=== PATIENT | female | born 1950 | race Caucasian/White ===

== ENCOUNTER 2016-06-07 10:48 | Observation (INO) | payer MEDICARE ==
[2016-06-07] MEDS ORDERED: NS 0.9% 1000 ML* 1,000 ML IV ONE (12:04)
[2016-06-07] MEDS ORDERED: Aspirin Low Dose CHEW TAB* 81 MG PO ONE (12:06)
[2016-06-07] MEDS ORDERED: Al Hydrox/Mg Hydrox/Simet LIQ* 30 ML UDC PO ONE (12:07)
[2016-06-07] MEDS ORDERED: Lidocaine 2% VISCOUS* 15 ML UDC PO ONE (12:07)
[2016-06-07 12:35] LABS: Hematocrit 42 % (35-47); Hemoglobin 14.2 g/dl (12.0-16.0); Mean Corpuscular HGB Conc 34 g/dl (31-36); Mean Corpuscular Hemoglobin 28 pg (27-31); Mean Corpuscular Volume 84 fL (80-97); Mean Platelet Volume 9 um3 (7.4-10.4); Red Blood Count 5.03 10^6/ul (4.0-5.4); Red Cell Distribution Width 15 % (10.5-15); White Blood Count 5.3 10^3/ul (3.5-10.8)
[2016-06-07 12:52] LABS: Albumin 4.2 g/dL (3.2-5.2); C Reactive Protein 1.39 mg/L (< 5.00); Calcium 9.9 mg/dL (8.6-10.3); EGFR African American 78.8 (>60); EGFR Non-African American 61.3 (>60); Globulin 2.9 g/dL (2-4); Magnesium 2.2 mg/dL (1.9-2.7); Potassium 3.5 mmol/L (3.5-5.0); Total Bilirubin 0.9 mg/dL (0.2-1.0); Total Protein 7.1 g/dL (6.4-8.9)
[2016-06-07] MEDS ORDERED: Iohexol 350* (CONTRAST) 500 ML MDV IV ONE (12:58)
[2016-06-07 13:34] LABS: TSH (Thyroid Stimulating Horm) 1.5 mcIU/mL (0.34-5.60)
--- NOTE | 2016-06-07 13:55 | RAD ---
Indication: Upper abdominal pain. Real-time sonography of the abdominal aorta was performed. Liver is normal in size measuring 13 cm in length. No focal lesions or intrahepatic ductal dilatation is noted. The gallbladder demonstrates no gallstones, pericholecystic fluid or wall thickening. The common duct measures 2.2 mm. Common duct measures 2.1 mm. Right kidney measures 11.4 x 3.9 x 5.4 cm with no hydronephrosis. The pancreatic head, neck and proximal body demonstrates no mass or pancreatic inflammation. Mild fusiform ectasia of the abdominal aorta is noted measuring 3.5 cm in length x 2.3 cm AP x 2.2 cm in width. IVC is unremarkable and patent. IMPRESSION: Fusiform ectasia of the abdominal aorta. No evidence of cholelithiasis or biliary ductal dilatation is noted.
--- NOTE | 2016-06-07 14:30 | RAD ---
INDICATION: Epigastric pain. History of abdominal aortic aneurysm COMPARISON: Abdominal aortic sonogram June 27, 2014 TECHNIQUE: Axial source images were obtained from the thoracic inlet to the symphysis pubis following administration of oral and intravenous contrast. CT angiographic technique was utilized. 100 mL of Omnipaque 350 was injected. Coronal and sagittal reconstructed images were acquired. CHEST FINDINGS: Neck/thyroid: The visualized neck to include the thyroid appear normal. Chest wall: There are no acute abnormalities of the bony thorax or chest wall. There is no supraclavicular, infraclavicular, or axillary lymphadenopathy. Lungs : There are no pulmonary parenchymal masses or infiltrates. The pulmonary interstitium appears normal. There are no endobronchial lesions. Cardiomediastinal structures: The heart is normal in size. There is no pericardial effusion. There is no evidence of thoracic aortic aneurysm or dissection. The pulmonary vessels appear normal. There is no mediastinal or hilar adenopathy. The esophagus appears normal. Pleura : There are no pleural-based masses or effusions. ABDOMINAL/PELVIC FINDINGS: Liver: The liver is normal in size. There are no masses identified on the early arterial phase images. There is no ductal dilatation. Gallbladder: There are no calcified gallstones. There is no evidence of wall thickening or pericholecystic fluid. Spleen: The spleen is normal in size. There are definitive masses identified on the early arterial phase enhanced images. Pancreas: There is no evidence of pancreatic mass or ductal dilatation. Adrenal glands: There is no evidence of adrenal mass. Kidneys: The kidneys are normal in size and position. There are prompt nephrograms and there is prompt excretion bilaterally. There are no renal parenchymal masses identified on early nephrographic phase imaging. There is no evidence of nephrolithiasis. Adenopathy: There is no evidence of adenopathy by size criteria. Fluid collections: There are no free or localized fluid collections. Vessels: There are mild aortic intimal calcifications with mild fusiform dilatation infrarenal abdominal aorta measuring 2.5 cm in greatest transverse dimension, unchanged. The iliac vessels are mildly tortuous and there are intimal calcifications. There is wide patency. There is no aneurysm. There is moderate origin disease of the celiac axis. The SMA and MARCELINO arteries are patent. There is mild origin disease of the renal arteries. There are single renal arteries bilaterally. GI tract: Evaluation of bowel is limited without oral contrast. There is a large hiatal hernia. The small bowel is normal in caliber. There are no specific CT abnormalities of the colon. There is no obstruction. Pelvic organs: The uterus and adnexa appear normal Bladder: There are no bladder masses. Abdominal and pelvic soft tissues: The extraperitoneal abdominal and pelvic soft tissues appear normal.. Osseous structures: There are no acute osseous findings. There is chronic L5 spondylolysis without anterolisthesis IMPRESSION: 1. No aneurysm of the thoracic aorta. Mild fusiform ectasia of the infrarenal abdominal aorta. No evidence of aortic dissection. 2. Large hiatal hernia. 3. Chronic L5 spondylolysis
[2016-06-07] MEDS ORDERED: Nitroglycerin TAB 0.4 MG* 0.4 MG TAB SL PRN (16:15)
[2016-06-07] MEDS ORDERED: Albuterol HFA INHALER* 8 gm MDI INH PRN (16:19)
[2016-06-07] MEDS ORDERED: oxyCODONE/Acetamin 5/325 MG* TAB PO PRN (16:21)
[2016-06-07] MEDS: ALPRAZolam TAB* 0.5 MG PO PRN (16:50)
--- NOTE | 2016-06-07 18:19 | ED ---
Case Luke Billy, scribed for Umang Gold MD on 06/07/16 at 1202 . Back Pain - HPI Summary HPI Summary: Patient is a 66 year-old female coming to [facility] for evaluation of intermittent upper back pain between the shoulder blades for the last several weeks, worse today since 929. She states that her pain is worse with exertion and improved with rest. Today, the pain radiates to her posterior and lateral right ribs as well as to the RUQ; she describes burning pain, severity 4/10. Associated SOB with exertion. She also reports intermittent headache and nausea as well as epigastric pain last night. She also reports chronic neck pain. Patient has a cardiac history as well as a history of LLE blood clot (December 2015, since resolved). PMHx of hiatal hernia and aortic aneurysm. - History of Current Complaint Chief Complaint: EDChestPainROMI Stated Complaint: POSSIBLE GALL BLADDER Time Seen by Provider: 06/07/16 11:54 Hx Obtained From: Patient Onset/Duration: Gradual Onset, Lasting Weeks, Still Present, Worse Since - 929 today Timing: Intermittent Back Pain Location: Is Discrete @ - upper back midline between shoulder blades, Radiates To - posterior and lateral right ribs and RUQ Severity Initially: Moderate Severity Currently: Moderate Pain Intensity: 4 Pain Scale Used: 0-10 Numeric Character: Burning Aggravating Symptom(s): Movement - exertion Alleviating Symptom(s): Rest Associated Signs And Symptoms: Positive: Abdominal Pain - Allergies/Home Medications Allergies/Adverse Reactions: Allergies Allergy/AdvReac Type Severity Reaction Status Date / Time Ezetimibe [From Vytorin] Allergy Intermediate Rash Verified 12/21/15 15:56 Simvastatin [From Vytorin] Allergy Intermediate Rash Verified 12/21/15 15:56 Codeine Allergy GI Upset Verified 12/21/15 15:56 Latex Allergy Rash Verified 12/21/15 15:56 PMH/Surg Hx/FS Hx/Imm Hx Endocrine/Hematology History: Reports: Hx Thyroid Disease - HYPO Cardiovascular History: Reports: Hx Aneurysm, Hx Angina, Hx Coronary Artery Disease - STENT/ANGIOPLASTY 2001, Hx Hypercholesterolemia, Hx Hypertension - ON MEDS, Other Cardiovascular Problems/Disorders - aortic aneurysm Denies: Hx Pacemaker/ICD Respiratory History: Reports: Hx Asthma, Hx Chronic Obstructive Pulmonary Disease (COPD) GI History: Reports: Hx Gastroesophageal Reflux Disease Musculoskeletal History: Reports: Hx Arthritis Sensory History: Reports: Hx Contacts or Glasses Denies: Hx Hearing Aid Opthamlomology History: Reports: Hx Contacts or Glasses Psychiatric History: Reports: Hx Anxiety, Hx Depression Denies: Hx Panic Disorder - Cancer History Hx Chemotherapy: No Hx Radiation Therapy: No - Surgical History Surgery Procedure, Year, and Place: BILATERAL CARPAL TUNNEL RELEASE. ROTOR CUFF REPAIR LEFT. RIGHT KNEE SCOPE. CARDIAC STENTS 2001(MULTI LINK [place]- CONDITIONAL 5 UP TO 3 T//330 G/CM) DR COTTER APPROVED HER FOR SCANNING ON 1.5 ONLY. Hx Anesthesia Reactions: No Infectious Disease History: No Infectious Disease History: Denies: Traveled Outside the [place] in Last 30 Days - Family History Known Family History: Positive: Hypertension - Social History Alcohol Use: Occasionally Substance Use Type: Reports: None Smoking Status (MU): Former Smoker Review of Systems Positive: Shortness Of Breath Positive: Abdominal Pain, Nausea Positive: Other - back pain, rib pain, neck pain Positive: Headache All Other Systems Reviewed And Are Negative: Yes Physical Exam Triage Information Reviewed: Yes Vital Signs On Initial Exam: Initial Vitals Temp Pulse Resp BP Pulse Ox 97.4 F 56 20 153/100 100 06/07/16 11:00 06/07/16 11:00 06/07/16 11:00 06/07/16 11:00 06/07/16 11:00 Vital Signs Reviewed: Yes Appearance: Positive: Well-Appearing, No Pain Distress Skin: Positive: Warm, Skin Color Reflects Adequate Perfusion, Dry Head/Face: Positive: Normal Head/Face Inspection Eyes: Positive: EOMI, GREG ENT: Positive: Normal ENT inspection Neck: Positive: Supple, Nontender Respiratory/Lung Sounds: Positive: Clear to Auscultation, Breath Sounds Present Cardiovascular: Positive: Bradycardia Abdomen Description: Positive: Nontender, Soft Bowel Sounds: Positive: Present Musculoskeletal: Positive: Normal, Strength/ROM Intact. Negative: Edema Left, Edema Right Neurological: Positive: Normal, Sensory/Motor Intact, Alert, Oriented to Person Place, Time Psychiatric: Positive: Affect/Mood Appropriate Diagnostics - Vital Signs Vital Signs Temp Pulse Resp BP Pulse Ox 06/07/16 11:00 97.4 F 56 20 153/100 100 - Laboratory Lab Results: Lab Results 06/07/16 06/07/16 06/07/16 Range/Units 12:25 12:25 12:25 WBC 5.3 (3.5-10.8) 10^3/ul RBC 5.03 (4.0-5.4) 10^6/ul Hgb 14.2 (12.0-16.0) g/dl Hct 42 (35-47) % MCV 84 (80-97) fL MCH 28 (27-31) pg MCHC 34 (31-36) g/dl RDW 15 (10.5-15) % Plt Count 162 (150-450) 10^3/ul MPV 9 (7.4-10.4) um3 Neut % (Auto) 59.6 (38-83) % Lymph % (Auto) 25.9 (25-47) % Reeves % (Auto) 8.8 (1-9) % Eos % (Auto) 4.7 (0-6) % Baso % (Auto) 1.0 (0-2) % Absolute Neuts (auto) 3.2 (1.5-7.7) 10^3/ul Absolute Lymphs (auto) 1.4 (1.0-4.8) 10^3/ul Absolute Monos (auto) 0.5 (0-0.8) 10^3/ul Absolute Eos (auto) 0.2 (0-0.6) 10^3/ul Absolute Basos (auto) 0.1 (0-0.2) 10^3/ul Absolute Nucleated RBC 0 10^3/ul Nucleated RBC % 0.1 INR (Anticoag Therapy) 1.18 H (0.89-1.11) APTT 57.5 H (26.0-36.3) seconds D-Dimer, Quantitative < 200 (Less Than 230) ng/mL Sodium 139 (133-145) mmol/L Potassium 3.5 (3.5-5.0) mmol/L Chloride 103 (101-111) mmol/L Carbon Dioxide 31 (22-32) mmol/L Anion Gap 5 (2-11) mmol/L BUN 11 (6-24) mg/dL Creatinine 0.92 (0.51-0.95) mg/dL Est GFR ( Amer) 78.8 (>60) Est GFR (Non-Af Amer) 61.3 (>60) BUN/Creatinine Ratio 12.0 (8-20) Glucose 94 (70-100) mg/dL Lactic Acid (0.5-2.0) mmol/L Calcium 9.9 (8.6-10.3) mg/dL Magnesium 2.2 (1.9-2.7) mg/dL Total Bilirubin 0.90 (0.2-1.0) mg/dL AST 28 (13-39) U/L ALT 24 (7-52) U/L Alkaline Phosphatase 96 (34-104) U/L Total Creatine Kinase 75 (10-223) U/L CK-MB (CK-2) 1.0 (0.6-6.3) ng/mL Troponin I 0.00 (<0.04) ng/mL C-Reactive Protein 1.39 (< 5.00) mg/L B-Natriuretic Peptide ( - 100) pg/mL Total Protein 7.1 (6.4-8.9) g/dL Albumin 4.2 (3.2-5.2) g/dL Globulin 2.9 (2-4) g/dL Albumin/Globulin Ratio 1.4 (1-3) Lipase 24 (11.0-82.0) U/L TSH 1.50 (0.34-5.60) mcIU/mL 06/07/16 06/07/16 Range/Units 12:25 12:25 WBC (3.5-10.8) 10^3/ul RBC (4.0-5.4) 10^6/ul Hgb (12.0-16.0) g/dl Hct (35-47) % MCV (80-97) fL MCH (27-31) pg MCHC (31-36) g/dl RDW (10.5-15) % Plt Count (150-450) 10^3/ul MPV (7.4-10.4) um3 Neut % (Auto) (38-83) % Lymph % (Auto) (25-47) % Reeves % (Auto) (1-9) % Eos % (Auto) (0-6) % Baso % (Auto) (0-2) % Absolute Neuts (auto) (1.5-7.7) 10^3/ul Absolute Lymphs (auto) (1.0-4.8) 10^3/ul Absolute Monos (auto) (0-0.8) 10^3/ul Absolute Eos (auto) (0-0.6) 10^3/ul Absolute Basos (auto) (0-0.2) 10^3/ul Absolute Nucleated RBC 10^3/ul Nucleated RBC % INR (Anticoag Therapy) (0.89-1.11) APTT (26.0-36.3) seconds D-Dimer, Quantitative (Less Than 230) ng/mL Sodium (133-145) mmol/L Potassium (3.5-5.0) mmol/L Chloride (101-111) mmol/L Carbon Dioxide (22-32) mmol/L Anion Gap (2-11) mmol/L BUN (6-24) mg/dL Creatinine (0.51-0.95) mg/dL Est GFR ( Amer) (>60) Est GFR (Non-Af Amer) (>60) BUN/Creatinine Ratio (8-20) Glucose (70-100) mg/dL Lactic Acid 0.8 (0.5-2.0) mmol/L Calcium (8.6-10.3) mg/dL Magnesium (1.9-2.7) mg/dL Total Bilirubin (0.2-1.0) mg/dL AST (13-39) U/L ALT (7-52) U/L Alkaline Phosphatase (34-104) U/L Total Creatine Kinase (10-223) U/L CK-MB (CK-2) (0.6-6.3) ng/mL Troponin I (<0.04) ng/mL C-Reactive Protein (< 5.00) mg/L B-Natriuretic Peptide 85 ( - 100) pg/mL Total Protein (6.4-8.9) g/dL Albumin (3.2-5.2) g/dL Globulin (2-4) g/dL Albumin/Globulin Ratio (1-3) Lipase (11.0-82.0) U/L TSH (0.34-5.60) mcIU/mL Result Diagrams: 06/07/16 12:25 06/07/16 12:25 Lab Statement: Any lab studies that have been ordered have been reviewed, and results considered in the medical decision making process. - CT CTA chest/abd/pel CT Interpretation Completed By: Radiologist - 1. No aneurysm of the thoracic aorta. Mild fusiform ectasia of the infrarenal abdominal aorta. No evidence of aortic dissection. 2. Large hiatal hernia. 3. Chronic L5 spondylolysis - Ultrasound No standard instances Ultrasound Interpretation Completed By: Radiologist - Gallbladder Ultrasound: Fusiform ectasia of the abdominal aorta. No evidence of cholelithiasis or biliary ductal dilatation is noted. - EKG 1110 EKG Interpretation: sinus bradycardia 57 bpm, no ectopy, TWI in III and aVF Re-Evaluation - Re-Evaluation First Eval Re-Evaluation Time: 14:37 Comment: Labs and imaging reviewed/discussed. Patient agrees with plan for admission. Back Pain Course/Dx - Course Course Of Treatment: NO CRITICAL CARE TIME Assessment/Plan: ADMIT HOSPITALIST STABLE. - Diagnoses Provider Diagnoses: Chest pain, Abdominal pain - Provider Notifications Discussed Care of Patient With: Dr. Petit (hospitalist) @ 1500: accepts admission. Discharge - Discharge Plan Condition: Stable Disposition: ADMITTED TO [facility] documentation as recorded by the Case herman Billy accurately reflects the service I personally performed and the decisions made by me, Umang oGld MD.
[2016-06-07] MEDS ORDERED: Atorvastatin* 10 MG TAB PO SCH (21:00)
[2016-06-07] MEDS ORDERED: Metoprolol Tartrate TAB* 50 mg PO SCH (21:00)
[2016-06-07] MEDS: CMCS - Dabigatran CAP(NF) 150 MG CAP PO SCH (21:38)
--- NOTE | 2016-06-07 22:57 | HP ---
HISTORY AND PHYSICAL: DATE OF ADMISSION: 06/07/16 TIME OF EVALUATION: 4 p.m. PRIMARY CARE PHYSICIAN: Isidoro Wiseman MD REVENUE STAMPER: Yvan Nava MD CHIEF COMPLAINT: Back and epigastric pain. HISTORY OF PRESENT ILLNESS: Mrs. Low is a 66-year-old lady with a past medical history of hypertension; hyperlipidemia; COPD; coronary artery disease, status post stent; osteoarthritis; chronic pain; and AAA who presented to the emergency room with complaints of back pain. The patient states that her symptoms started 2 weeks ago when she started to have pain between her shoulder blades. The pain was 5/10 with no radiation and worsened by movement. She does not remember exactly any specific event that provoked the pain, but she has had it on and off for this past 2 weeks. She took half of Percocet with some relief, but the pain kept coming back. Today, she went to vacuum and the pain became severe, 10/10 intensity, and she called her PCP and as she cannot be seen by them, she decided to come to the emergency room for further evaluation. She says down her drive in, she developed some epigastric pain radiating to her right upper quadrant, burning in nature. She denies chest pain, palpitations, shortness of breath, or any other complaints. PAST MEDICAL HISTORY: 1. Hypertension. 2. Hyperlipidemia. 3. COPD. 4. Coronary artery disease with 70% occlusion of the obtuse marginal from left circumflex, undergoing medical management. She is status post stent in 2001. 5. Osteoarthritis. 6. Chronic pain. 7. AAA. MEDICATIONS: 1. Albuterol HFA 2 puffs inhaled q.6 hours p.r.n. shortness of breath. 2. Alprazolam 0.5 mg p.o. t.i.d. as needed for anxiety. 3. Aspirin 81 mg p.o. daily. 4. Vitamin D 2000 units p.o. daily. 5. Pradaxa 150 mg p.o. b.i.d. 6. Folic acid with vitamin B6 1000 p.o. daily. 7. Hydrochlorothiazide 25 mg p.o. daily. 8. Levothyroxine 75 mcg p.o. daily. 9. Metoprolol tartrate 50 mg p.o. b.i.d. 10. Nitroglycerin 0.4 mg sublingual q.5 minutes p.r.n. chest pain, maximum 3 doses. 11. Omeprazole 20 mg p.o. daily. 12. Potassium chloride 300 mg p.o. daily. 13. SIMVASTATIN 10 mg p.o. at bedtime. ALLERGIES: EZETIMIBE, CODEINE and LATEX. SIMVASTATIN is also listed as an allergy, but the patient is taking it now with no issues. FAMILY HISTORY: Mother had heart disease, diabetes, and Alzheimer's and her father had heart disease and from aneurysm. SOCIAL HISTORY: The patient quit smoking 7 years ago. She drinks alcohol occasionally. Surrogate decision maker is her , Yovany Low. Phone number is [phone]. REVIEW OF SYSTEMS: A 14-point review of systems was performed and all the pertinent negative and positive findings are in the HPI. PHYSICAL EXAMINATION GENERAL: The patient is a pleasant lady, sitting up in the ED stretcher, in no acute distress. VITAL SIGNS: Temperature 97.4, heart rate is 68, respiratory rate is 20, oxygen saturation is 96% on room air, and blood pressure 152/88. HEENT: Pupils are equal and reactive to light. Extraocular movements intact. Moist mucous membranes. CVS: Normal S1, S2. Regular rate and rhythm. CHEST: Breath sounds present bilaterally with no added sounds. ABDOMEN: Obese, soft, nontender, and nondistended. Bowel sounds are present. EXTREMITIES: No edema. NEUROLOGIC: She is alert, awake, and oriented x3. She is able to move all 4 extremities. DIAGNOSTIC STUDIES/LAB DATA: The patient had a CBC that was unremarkable. D- dimer was less than 200. Chemistry was also unremarkable and her troponin was 0. EKG done on June 07 at 11:10 a.m. showed sinus bradycardia at 57 beats per minute with T inversions in lead 3. No significant changes from her prior EKG from November 2015. Gallbladder ultrasound showed fusiform ectasia of the abdominal aorta and no evidence of cholelithiasis or biliary duct dilatation. CTA of the chest, abdomen, and pelvis showed no aneurysm of the thoracic aorta. There is mild fusiform ectasia of the infrarenal abdominal aorta, but no evidence of aortic dissection. The infrarenal abdominal aorta measures 2.5 cm in greatest transverse dimension, unchanged from her prior abdominal aortic sonogram from June 2015. ASSESSMENT AND PLAN: Mrs. Low is a 66-year-old lady with a past medical history of hypertension; hyper-lipidemia; chronic obstructive pulmonary disease ; coronary artery disease, status post stent; osteoarthritis; chronic pain; and abdominal aortic aneurysm, who presents to the emergency room with complaints of back pain and epigastric pain. 1. Back/epigastric pain: Rule out acute coronary syndrome. I believe the etiology of her pain is probably musculoskeletal, but the patient does have a history of coronary artery disease and significant risk factors. She will be admitted to the telemetry floor on observation. We are going to check serial troponins and if acute coronary syndrome is ruled out, she is going to have a nuclear pharmacological stress test. Her D-dimer was negative. Her CTA showed that her aneurysm is stable and an ultrasound was negative for gallbladder disease. 2. Hypertension: We will continue hydrochlorothiazide/metoprolol tonight, but we will hold metoprolol in the morning for her stress test. 3. Coronary artery disease: Continue aspirin and metoprolol for tonight and statin. 4. Atrial fibrillation: The patient is in sinus rhythm at this time. We will continue Pradaxa. 5. DVT prophylaxis: The patient has a score of 3 on the DVT Prophylaxis Risk Assessment Guide and Pradaxa will serve as DVT prophylaxis also. 6. Code status: Full. TIME SPENT: Approximately 50 minutes was spent with the patient interview, medical records review, physical examination to complete the admission, and more than half this time was spent [id number] with the patient and coordination of care. CC: Dr. Wiseman; Dr. Nava* [id number]/[facility] #: [id number] [facility]
[2016-06-08 02:48] LABS: Urine Bacteria Absent (Absent); Urine Bilirubin Negative (Negative); Urine Glucose Negative (Negative); Urine Nitrite Negative (Negative)
[2016-06-08] MEDS ORDERED: Levothyroxine TAB* 75 MCG TAB PO SCH (06:00)
[2016-06-08] MEDS ORDERED: Omeprazole CAP* 20 MG PO SCH (07:30)
[2016-06-08] MEDS: CMCS - Dabigatran CAP(NF) 150 MG CAP PO SCH (08:26)
[2016-06-08] MEDS ORDERED: Aspirin EC Low Dose* 81 MG TAB.EC PO SCH (09:00)
[2016-06-08] MEDS ORDERED: Cholecalciferol TAB* 1000 UNITS PO SCH (09:00)
[2016-06-08] MEDS ORDERED: Hydrochlorothiazide TAB* 25 MG PO SCH (09:00)
[2016-06-08] MEDS ORDERED: Potassium Chlor TAB* 20 MEQ TAB.ER PO SCH (09:00)
[2016-06-08] MEDS ORDERED: Regadenoson* 0.4 MG/5 ML SYRINGE ONE (11:58)
[2016-06-08] MEDS ORDERED: Aminophylline IV* 25 MG/ML 10 ML VIAL ONE (11:59)
[2016-06-08 13:35] VITALS: BP 133/88
--- NOTE | 2016-06-08 13:40 | RAD ---
Edited for charges. Indication: Chest pain. Myocardial perfusion scan was performed utilizing 1 day protocol. Rest myocardial perfusion was performed after intravenous injection of 10.4 mCi technetium 99m tetrofosmin. Pharmacological stress was applied and 25.6 mCi of technetium 99 and tetrofosmin was injected for the stress portion of the study. There is homogeneous distribution of radiotracer throughout the left ventricle. There may be some apical thinning noted. There is no definite fixed or reversible perfusion defect identified. The ejection fraction at stress is 79%. Evaluation of wall motion demonstrates no focal wall motion abnormality. IMPRESSION: NO EVIDENCE OF FIXED OR REVERSIBLE PERFUSION DEFECT. NORMAL EJECTION FRACTION. MTDD
[2016-06-08] MEDS: ALPRAZolam TAB* 0.5 MG PO PRN (14:33)
--- NOTE | 2016-06-09 14:49 | DS ---
DISCHARGE SUMMARY: DATE OF ADMISSION: 06/07/16 DATE OF DISCHARGE: 06/08/16 PRIMARY CARE PROVIDER: Dr. Isidoro Wiseman. ENVIRONMENTAL HEALTH TECHNOLOGIST: Dr. Nava. PRIMARY DIAGNOSIS: Back and epigastric pain. SECONDARY DIAGNOSES: Include: 1. Hypertension. 2. Hyperlipidemia. 3. Chronic obstructive pulmonary disease. 4. Coronary artery disease. 5. History of osteoarthritis involving cervical spine. MEDICATIONS ON DISCHARGE: Include: 1. Potassium chloride/Micro 20 mEq daily. 2. Pradaxa 150 mg twice daily. 3. Simvastatin 10 mg at bedtime. 4. Omeprazole 20 mg daily. 5. Aspirin 81 mg daily. 6. Hydrochlorothiazide 25 mg daily. 7. Cholecalciferol 2000 units daily. 8. Metoprolol tartrate 50 mg twice daily. 9. Nitroglycerin 0.4 mg sublingual every 5 minutes up to 3 times as needed for chest pain. 10. Synthroid 75 mcg daily. 11. Folic acid. 12. B6 vitamin complex 1 tab daily. 13. Alprazolam 0.5 mg 3 times a day as needed for anxiety. 14. Albuterol HFA 2 puffs inhaled every 6 hours as needed for shortness of breath. PROCEDURES PERFORMED DURING HOSPITAL STAY: 1. Pharmacological stress with nuclear imaging, impression: EF at stress 79%. Evaluation of wall motion demonstrates no focal wall motion abnormalities. No evidence of fixed or reversible perfusion defects. Low risk. 2. CTA chest, abdomen, and pelvis, impression: No aneurysm of the thoracic aorta. Mild fusiform ectasia of the infrarenal abdominal aorta. No evidence of aortic dissection. Large hiatal hernia. Chronic L5 spondylosis. 3. Gallbladder ultrasound, impression: Fusiform ectasia of the abdominal aorta. No evidence of cholelithiasis or biliary ductal dilatation is noted. PERTINENT LABORATORY DATA: Troponin I 0.00 on three consecutive checks. CRP 1.39. TSH 1.50. BNP 85. HISTORY OF PRESENT ILLNESS AND HOSPITAL COURSE: This is a 66-year-old female, past medical history as noted in the history of present illness, on the day of admission presented to the hospital with 2 weeks of on and off back pain between her shoulder blades. En route to the hospital, she developed abdominal pain. There was concern of aortic dissection, underwent CTA as indicated above with negative imaging. In the setting of known CAD and on and off symptoms for 2 weeks, there was also concern for ACS for which the patient underwent serial troponins that were negative as well as pharmacological stress with nuclear imaging, which was also interpreted as above low risk. The patient remained symptom free. The patient feels that the pain may be similar to that she experienced in 2006 in her cervical spine for which she previously received corticosteroid injections. This author agrees this is less likely heart at this point, more likely musculoskeletal. The patient may benefit from reevaluation for steroid injections. There are no complications during the course of the hospital stay. FOLLOWUP INSTRUCTIONS: At followup, please: 1. Evaluate for continued pain. 2. Referral to pain clinic for steroid injections if deemed appropriate. 3. No other specific labs or vitals that need followup. Reasons to return to the hospital including but not limited to recurrent or worsening symptoms, chest pain, shortness of breath, nausea, vomiting, lightheadedness, loss of consciousness, near loss of consciousness, fever, chills, night sweats, bleeding from any source, inability to obtain or tolerate medications were discussed with the patient. She acknowledged understanding. TIME SPENT: Greater than 60 minutes was spent on discharge of this patient, greater than half was spent [id number] with the patient. CC: Dr. Isidoro Wiseman; Dr. Nava* [id number]/[facility] #: [id number] [facility]
== END 2016-06-08 16:43 | disposition home or self-care (01) ==
LOC: ED 10:48 → MEDTELE 15:29
PROVIDERS: ADMIT Internal Medicine; ATTEND Internal Medicine
DX: R10.13 Epigastric pain (principal); M54.9 Dorsalgia, unspecified; I10 Essential (primary) hypertension; E78.5 Hyperlipidemia, unspecified; J44.9 Chronic obstructive pulmonary disease, unspecified; I25.10 Atherosclerotic heart disease of native coronary artery without angina pectoris; M47.9 Spondylosis, unspecified; I48.91 Unspecified atrial fibrillation; K44.9 Diaphragmatic hernia without obstruction or gangrene; R00.1 Bradycardia, unspecified; Z79.899 Other long term (current) drug therapy; Z79.82 Long term (current) use of aspirin; Z79.01 Long term (current) use of anticoagulants; Z88.8 Allergy status to other drugs, medicaments and biological substances; Z88.5 Allergy status to narcotic agent; I71.4 Abdominal aortic aneurysm, without rupture; Z87.891 Personal history of nicotine dependence; R06.02 Shortness of breath
CPT/HCPCS: 36415; 71275; 74174; 76705; 78452; 80053; 81003; 81015; 82550; 82553; 83605; 83690; 83735; 83880; 84443; 84484; 85025; 85379; 85610; 85730; 86140; 93005; 93017; 99284; A9270-GY; A9502; G0378; J0280; J2785; Q9967

== ENCOUNTER 2016-08-26 19:39 | Emergency (ER) | payer MEDICARE ==
--- NOTE | 2016-08-26 21:50 | RAD ---
INDICATION: Chest pain COMPARISON: September 17, 2014 TECHNIQUE: PA and lateral dual-energy views were obtained. FINDINGS: Bones/Soft Tissues: There are no acute bony findings. There is osteopenia with kyphosis Cardiomediastinal: The cardiomediastinal silhouette is normal in size. Lungs: There are no infiltrates. Pleura: There are no pleural effusions. Other: None IMPRESSION: NO ACTIVE DISEASE.
[2016-08-26 21:59] LABS: Hematocrit 40 % (35-47); Hemoglobin 13.4 g/dl (12.0-16.0); Mean Corpuscular HGB Conc 33 g/dl (31-36); Mean Corpuscular Hemoglobin 27 pg (27-31); Mean Corpuscular Volume 82 fL (80-97); Mean Platelet Volume 9 um3 (7.4-10.4); Red Blood Count 4.89 10^6/ul (4.0-5.4); Red Cell Distribution Width 14 % (10.5-15)
[2016-08-26 22:01] LABS: ALT 20 U/L (7-52); Albumin 3.9 g/dL (3.2-5.2); Alkaline Phosphatase 80 U/L (34-104); BUN/Creatinine Ratio 15.7 (8-20); Blood Urea Nitrogen 19 mg/dL (6-24); CO2 Carbon Dioxide 24 mmol/L (22-32); Chloride 105 mmol/L (101-111); EGFR African American 57.4 (>60); EGFR Non-African American 44.7 (>60); Globulin 2.9 g/dL (2-4); Glucose 102 mg/dL (70-100); Sodium 136 mmol/L (133-145); Total Protein 6.8 g/dL (6.4-8.9)
[2016-08-26 22:22] LABS: Anion Gap 7 mmol/L (2-11)
--- NOTE | 2016-08-26 23:14 | ED ---
Muriel Luke Alfonso, scribed for Keith Payton MD on 08/26/16 at 2117 . HPI Cardiac - HPI Summary HPI Summary: This patient is a 66 year old female presenting to [facility] c/o dyspnea secondary to deep breaths that is worst today. She states these episodes last a couple of minutes. She describes this as a spasm under her right rib that radiates to her upper abdomen. Symptoms aggravated and alleviated by nothing. The patient reports having these symptoms intermittently for the past 45 days. - History of Current Complaint Chief Complaint: EDChestWallPain Stated Complaint: RIGHT SHOULDER BLADE PAIN GOING TO ABD Time Seen by Provider: 08/26/16 21:04 Hx Obtained From: Patient Onset/Duration: Started Hours Ago - Today, Atraumatic, Worse Since Timing: Intermittent, Lasting Minutes - A couple of minutes Initial Severity: Moderate Current Severity: Moderate Chest Pain Location: Discrete at: - Right rib Chest Pain Radiates: Yes Chest Pain Radiates To:: Other - Upper abdomen Character: Other: - Dyspnea secondary to deep breaths Aggravating Factor(s): Nothing Alleviating Factor(s): Nothing Associated Signs and Symptoms: Positive: Abdominal Pain - Pain radiates to her upper abdomen - Additional Pertinent History Primary Care Physician: [id number] - Allergy/Home Medications Allergies/Adverse Reactions: Allergies Allergy/AdvReac Type Severity Reaction Status Date / Time Ezetimibe [From Vytorin] Allergy Intermediate Rash Verified 12/21/15 15:56 Simvastatin [From Vytorin] Allergy Intermediate Rash Verified 12/21/15 15:56 Codeine Allergy GI Upset Verified 12/21/15 15:56 Latex Allergy Rash Verified 12/21/15 15:56 PMH/Surg Hx/FS Hx/Imm Hx Endocrine/Hematology History: Reports: Hx Thyroid Disease - HYPO Cardiovascular History: Reports: Hx Aneurysm, Hx Angina, Hx Coronary Artery Disease - STENT/ANGIOPLASTY 2001, Hx Hypercholesterolemia, Hx Hypertension - ON MEDS, Other Cardiovascular Problems/Disorders - aortic aneurysm Denies: Hx Pacemaker/ICD Respiratory History: Reports: Hx Asthma, Hx Chronic Obstructive Pulmonary Disease (COPD) GI History: Reports: Hx Gastroesophageal Reflux Disease, Hx Hiatal Hernia Musculoskeletal History: Reports: Hx Arthritis Sensory History: Reports: Hx Contacts or Glasses Denies: Hx Hearing Aid Opthamlomology History: Reports: Hx Contacts or Glasses Neurological History: Reports: Hx Migraine Psychiatric History: Reports: Hx Anxiety, Hx Depression Denies: Hx Panic Disorder - Cancer History Hx Chemotherapy: No Hx Radiation Therapy: No - Surgical History Surgery Procedure, Year, and Place: BILATERAL CARPAL TUNNEL RELEASE. ROTOR CUFF REPAIR LEFT. RIGHT KNEE SCOPE. CARDIAC STENTS 2001(MULTI LINK [place]- CONDITIONAL 5 UP TO 3 T//330 G/CM) DR COTTER APPROVED HER FOR SCANNING ON 1.5 ONLY. Hx Anesthesia Reactions: No Infectious Disease History: Denies: Traveled Outside the [place] in Last 30 Days - Family History Known Family History: Positive: Hypertension - Social History Alcohol Use: Occasionally Substance Use Type: Reports: None Smoking Status (MU): Former Smoker Review of Systems Positive: Other - Dyspnea secondary to deep breaths Positive: Abdominal Pain - Pain radiates to upper abdomen All Other Systems Reviewed And Are Negative: Yes Physical Exam Triage Information Reviewed: Yes Vital Signs On Initial Exam: Initial Vitals BP 94/79 08/26/16 19:49 Vital Signs Reviewed: Yes Appearance: Positive: Well-Appearing, No Pain Distress Skin: Positive: Warm Head/Face: Positive: Normal Head/Face Inspection Eyes: Positive: GREG ENT: Positive: Hearing grossly normal Neck: Positive: Supple Respiratory/Lung Sounds: Positive: Clear to Auscultation, Breath Sounds Present , Other Cardiovascular: Positive: RRR Abdomen Description: Positive: Nontender, Soft Bowel Sounds: Positive: Present Musculoskeletal: Positive: Strength/ROM Intact Neurological: Positive: Alert, Oriented to Person Place, Time Psychiatric: Positive: Affect/Mood Appropriate Diagnostics - Vital Signs Vital Signs Temp Pulse Resp BP Pulse Ox 08/26/16 20:05 99.1 F 75 18 108/69 99 08/26/16 19:52 21 08/26/16 19:49 94/79 - Laboratory Lab Results: Lab Results 08/26/16 08/26/16 08/26/16 Range/Units 21:35 21:35 21:35 WBC 8.0 (3.5-10.8) 10^3/ul RBC 4.89 (4.0-5.4) 10^6/ul Hgb 13.4 (12.0-16.0) g/dl Hct 40 (35-47) % MCV 82 (80-97) fL MCH 27 (27-31) pg MCHC 33 (31-36) g/dl RDW 14 (10.5-15) % Plt Count 153 (150-450) 10^3/ul MPV 9 (7.4-10.4) um3 Neut % (Auto) 56.9 (38-83) % Lymph % (Auto) 30.0 (25-47) % [place] % (Auto) 9.1 H (1-9) % Eos % (Auto) 3.0 (0-6) % Baso % (Auto) 1.0 (0-2) % Absolute Neuts (auto) 4.5 (1.5-7.7) 10^3/ul Absolute Lymphs (auto) 2.4 (1.0-4.8) 10^3/ul Absolute Monos (auto) 0.7 (0-0.8) 10^3/ul Absolute Eos (auto) 0.2 (0-0.6) 10^3/ul Absolute Basos (auto) 0.1 (0-0.2) 10^3/ul Absolute Nucleated RBC 0 10^3/ul Nucleated RBC % 0 INR (Anticoag Therapy) 1.06 (0.89-1.11) D-Dimer, Quantitative < 200 (Less Than 230) ng/mL Sodium 136 (133-145) mmol/L Potassium TNP Chloride 105 (101-111) mmol/L Carbon Dioxide 24 (22-32) mmol/L Anion Gap 7 (2-11) mmol/L BUN 19 (6-24) mg/dL Creatinine 1.21 H (0.51-0.95) mg/dL Est GFR ( Amer) 57.4 (>60) Est GFR (Non-Af Amer) 44.7 (>60) BUN/Creatinine Ratio 15.7 (8-20) Glucose 102 H (70-100) mg/dL Lactic Acid (0.5-2.0) mmol/L Calcium 9.0 (8.6-10.3) mg/dL Total Bilirubin 0.70 (0.2-1.0) mg/dL AST TNP ALT 20 (7-52) U/L Alkaline Phosphatase 80 (34-104) U/L Troponin I 0.00 (<0.04) ng/mL Total Protein 6.8 (6.4-8.9) g/dL Albumin 3.9 (3.2-5.2) g/dL Globulin 2.9 (2-4) g/dL Albumin/Globulin Ratio 1.3 (1-3) 08/26/16 Range/Units 21:35 WBC (3.5-10.8) 10^3/ul RBC (4.0-5.4) 10^6/ul Hgb (12.0-16.0) g/dl Hct (35-47) % MCV (80-97) fL MCH (27-31) pg MCHC (31-36) g/dl RDW (10.5-15) % Plt Count (150-450) 10^3/ul MPV (7.4-10.4) um3 Neut % (Auto) (38-83) % Lymph % (Auto) (25-47) % [place] % (Auto) (1-9) % Eos % (Auto) (0-6) % Baso % (Auto) (0-2) % Absolute Neuts (auto) (1.5-7.7) 10^3/ul Absolute Lymphs (auto) (1.0-4.8) 10^3/ul Absolute Monos (auto) (0-0.8) 10^3/ul Absolute Eos (auto) (0-0.6) 10^3/ul Absolute Basos (auto) (0-0.2) 10^3/ul Absolute Nucleated RBC 10^3/ul Nucleated RBC % INR (Anticoag Therapy) (0.89-1.11) D-Dimer, Quantitative (Less Than 230) ng/mL Sodium (133-145) mmol/L Potassium Chloride (101-111) mmol/L Carbon Dioxide (22-32) mmol/L Anion Gap (2-11) mmol/L BUN (6-24) mg/dL Creatinine (0.51-0.95) mg/dL Est GFR ( Amer) (>60) Est GFR (Non-Af Amer) (>60) BUN/Creatinine Ratio (8-20) Glucose (70-100) mg/dL Lactic Acid 0.7 (0.5-2.0) mmol/L Calcium (8.6-10.3) mg/dL Total Bilirubin (0.2-1.0) mg/dL AST ALT (7-52) U/L Alkaline Phosphatase (34-104) U/L Troponin I (<0.04) ng/mL Total Protein (6.4-8.9) g/dL Albumin (3.2-5.2) g/dL Globulin (2-4) g/dL Albumin/Globulin Ratio (1-3) Result Diagrams: 08/26/16 21:35 08/26/16 21:35 Lab Statement: Any lab studies that have been ordered have been reviewed, and results considered in the medical decision making process. - Radiology CXR Radiology Interpretation Completed By: Radiologist - no active disease - EKG 2130 Cardiac Rate: NL - BPM 76 EKG Rhythm: Sinus Rhythm EKG Interpretation: Occasional Atrial Premature Complexes Re-Evaluation - Re-Evaluation First Eval Change: Improved Disposition - Diagnoses Provider Diagnoses: Chest wall pain Discharge - Discharge Plan Condition: Improved Disposition: HOME Patient Education Materials: Chest Wall Pain (ED) Referrals: Isidoro Wiseman MD [Primary Care Provider] - 3 Days The documentation as recorded by the Muriel herman Alfonso accurately reflects the service I personally performed and the decisions made by Fito medeiros David, MD.
[2016-08-26 23:32] VITALS: BP 125/94
== END 2016-08-26 23:34 | disposition home or self-care (01) ==
LOC: ED 19:39
DX: R07.89 Other chest pain (principal); J44.9 Chronic obstructive pulmonary disease, unspecified; K21.9 Gastro-esophageal reflux disease without esophagitis; I25.10 Atherosclerotic heart disease of native coronary artery without angina pectoris; E78.00 Pure hypercholesterolemia, unspecified; Z87.891 Personal history of nicotine dependence
CPT/HCPCS: 36415; 71020; 80053; 83605; 84484; 85025; 85379; 85610; 93005; 99283

== ENCOUNTER 2016-11-21 12:12 | Emergency (ER) | payer MEDICARE ==
--- NOTE | 2016-11-21 13:14 | RAD ---
INDICATION: Chest pain in a patient with history of atrial fibrillation COMPARISON: Most recent comparison chest x-ray August 26, 2016 TECHNIQUE: Single AP portable view of the chest was obtained. FINDINGS: Image quality is compromised due to the relative inferiority of a portable chest x-ray. The heart and mediastinum exhibit normal size and contour. The lungs are grossly clear. There is no evidence of a large pleural effusion. Visualized bones are normal for the patient's age. IMPRESSION: No radiographic evidence for acute cardiopulmonary abnormality on this portable chest x-ray.
[2016-11-21 13:17] LABS: Hematocrit 40 % (35-47); Hemoglobin 13.3 g/dl (12.0-16.0); Mean Corpuscular HGB Conc 33 g/dl (31-36); Mean Corpuscular Hemoglobin 28 pg (27-31); Mean Corpuscular Volume 83 fL (80-97); Mean Platelet Volume 9 um3 (7.4-10.4); Red Blood Count 4.85 10^6/ul (4.0-5.4); Red Cell Distribution Width 15 % (10.5-15); White Blood Count 5.5 10^3/ul (3.5-10.8)
[2016-11-21 13:30] LABS: Albumin 4.1 g/dL (3.2-5.2); BUN/Creatinine Ratio 16.1 (8-20); Calcium 9.8 mg/dL (8.6-10.3); EGFR Non-African American 65.3 (>60); Globulin 3.1 g/dL (2-4); Potassium 3.4 mmol/L (3.5-5.0); Total Bilirubin 0.9 mg/dL (0.2-1.0); Total Protein 7.2 g/dL (6.4-8.9)
[2016-11-21] MEDS ORDERED: Potassium Chlor TAB* 20 MEQ TAB.ER PO ONE (13:34)
[2016-11-21 13:42] LABS: Urine Bacteria Absent (Absent); Urine Bilirubin Negative (Negative); Urine Glucose Negative (Negative); Urine Nitrite Negative (Negative)
[2016-11-21 14:03] LABS: TSH (Thyroid Stimulating Horm) 1.65 mcIU/mL (0.34-5.60)
[2016-11-21 15:40] VITALS: BP 157/67
--- NOTE | 2016-11-21 18:43 | ED ---
González Luke Thomas, scribed for Thaddeus Clayton MD on 11/21/16 at 1322 . HPI Chest Pain - HPI Summary HPI Summary: The pt is a 66 y/o F presenting to the ED c/o an episode of CP that began today at 06:00 and lasted about a minute. The pain was rated 4/10 and was described as pressure. This CP did not radiate. Pt additionally c/o palpitations characterized as flutters that began yesterday. She still has these palpitations today. She has a PMHx of A-Fib. About a year ago, she was cartioverted electrically after an apisode of A-Fib. She also notes minor dizziness this AM. Pt denies N/V. - History of Current Complaint Chief Complaint: EDChestPainROMI Time Seen by Provider: 11/21/16 12:35 Hx Obtained From: Patient Onset/Duration: Started Hours Ago - onest today at 06:00 Timing: Lasting Minutes - duration of CP was one minute Current Severity: Moderate Pain Intensity: 4 Pain Scale Used: 0-10 Numeric Chest Pain Radiates: No Aggravating Factor(s): Nothing Alleviating Factor(s): Spontaneous Resolution Associated Signs and Symptoms: Positive: Chest Pain, Other: - POS: palpitatations characterized as a flutter. Negative: Nausea, Vomiting Related History: Similar Episode/Dx as: - A-Fib cardioversion last year with electricity - Additional Pertinent History Primary Care Physician: JOSE MANUEL - Allergy/Home Medications Allergies/Adverse Reactions: Allergies Allergy/AdvReac Type Severity Reaction Status Date / Time Ezetimibe [From Vytorin] Allergy Intermediate Rash Verified 11/21/16 12:40 Simvastatin [From Vytorin] Allergy Intermediate Rash Verified 11/21/16 12:40 Codeine Allergy GI Upset Verified 11/21/16 12:40 Latex Allergy Rash Verified 11/21/16 12:40 PMH/Surg Hx/FS Hx/Imm Hx Previously Healthy: No Endocrine/Hematology History: Reports: Hx Thyroid Disease - HYPO Cardiovascular History: Reports: Hx Aneurysm, Hx Angina, Hx Coronary Artery Disease - STENT/ANGIOPLASTY 2001, Hx Hypercholesterolemia, Hx Hypertension - ON MEDS, Other Cardiovascular Problems/Disorders - aortic aneurysm Denies: Hx Pacemaker/ICD Respiratory History: Reports: Hx Asthma, Hx Chronic Obstructive Pulmonary Disease (COPD) GI History: Reports: Hx Gastroesophageal Reflux Disease, Hx Hiatal Hernia Musculoskeletal History: Reports: Hx Arthritis Sensory History: Reports: Hx Contacts or Glasses Denies: Hx Hearing Aid Opthamlomology History: Reports: Hx Contacts or Glasses Neurological History: Reports: Hx Migraine Psychiatric History: Reports: Hx Anxiety, Hx Depression Denies: Hx Panic Disorder - Cancer History Hx Chemotherapy: No Hx Radiation Therapy: No - Surgical History Surgery Procedure, Year, and Place: BILATERAL CARPAL TUNNEL RELEASE. ROTOR CUFF REPAIR LEFT. RIGHT KNEE SCOPE. CARDIAC STENTS 2001(MULTI LINK [place]- CONDITIONAL 5 UP TO 3 T//330 G/CM) DR COTTER APPROVED HER FOR SCANNING ON 1.5 ONLY. Hx Anesthesia Reactions: No Infectious Disease History: No Infectious Disease History: Denies: Traveled Outside the [place] in Last 30 Days - Family History Known Family History: Positive: Hypertension - Social History Alcohol Use: Occasionally Hx Substance Use: No Substance Use Type: Reports: None Hx Tobacco Use: Yes Smoking Status (MU): Former Smoker Review of Systems Negative: Fever Positive: Palpitations - onset yesterday and characterized as flutters, Chest Pain - episode at 06:00 lasting a minute Negative: Vomiting, Nausea All Other Systems Reviewed And Are Negative: Yes Physical Exam - Summary Physical Exam Summary: VITAL SIGNS: Reviewed. GENERAL: ~Patient is a well-developed and nourished female who is lying comfortable in the stretcher. ~Patient is not in any acute respiratory distress. HEAD AND FACE: No signs of trauma. ~No ecchymosis, hematomas or skull depressions. No sinus tenderness. EYES: PERRLA, EOMI x 2, No injected conjunctiva, no nystagmus. EARS: Hearing grossly intact. Ear canals and tympanic membranes are within normal limits. MOUTH: Oropharynx within normal limits. NECK: Supple, trachea is midline, no adenopathy, no JVD, no carotid bruit, no c- spine tenderness, neck with full ROM. CHEST: Symmetric, no tenderness at palpation LUNGS: Clear to auscultation bilaterally. No wheezing or crackles. CVS: Regular rate and rhythm, S1 and S2 present, no murmurs or gallops appreciated. ABDOMEN: Soft, non-tender. No signs of distention. No rebound no guarding, and no masses palpated. Bowel sounds are normal. EXTREMITIES: FROM in all major joints, no edema, no cyanosis or clubbing. NEURO: Alert and oriented x 3. No acute neurological deficits. Speech is normal and follows commands. SKIN: Dry and warm Triage Information Reviewed: Yes Vital Signs On Initial Exam: Initial Vitals Temp Pulse Resp BP Pulse Ox 98.1 F 60 20 142/63 98 11/21/16 12:15 11/21/16 12:15 11/21/16 12:15 11/21/16 12:15 11/21/16 12:15 Vital Signs Reviewed: Yes - Carina Coma Scale Coma Scale Total: 15 Diagnostics - Vital Signs Vital Signs Temp Pulse Resp BP Pulse Ox 11/21/16 13:00 60 14 156/135 98 11/21/16 12:38 60 99 11/21/16 12:36 98.1 F 64 15 143/88 100 11/21/16 12:15 98.1 F 60 20 142/63 98 - Laboratory Lab Results: Lab Results 11/21/16 Range/Units 13:04 WBC 5.5 (3.5-10.8) 10^3/ul RBC 4.85 (4.0-5.4) 10^6/ul Hgb 13.3 (12.0-16.0) g/dl Hct 40 (35-47) % MCV 83 (80-97) fL MCH 28 (27-31) pg MCHC 33 (31-36) g/dl RDW 15 (10.5-15) % Plt Count 166 (150-450) 10^3/ul MPV 9 (7.4-10.4) um3 Neut % (Auto) 54.7 (38-83) % Lymph % (Auto) 29.2 (25-47) % [place] % (Auto) 10.2 H (1-9) % Eos % (Auto) 5.0 (0-6) % Baso % (Auto) 0.9 (0-2) % Absolute Neuts (auto) 3.0 (1.5-7.7) 10^3/ul Absolute Lymphs (auto) 1.6 (1.0-4.8) 10^3/ul Absolute Monos (auto) 0.6 (0-0.8) 10^3/ul Absolute Eos (auto) 0.3 (0-0.6) 10^3/ul Absolute Basos (auto) 0 (0-0.2) 10^3/ul Absolute Nucleated RBC 0.01 10^3/ul Nucleated RBC % 0.1 Result Diagrams: 11/21/16 13:04 11/21/16 13:04 Lab Statement: Any lab studies that have been ordered have been reviewed, and results considered in the medical decision making process. - Radiology CXR Xray Interpretation: No Acute Changes - No radiographic evidence for acute cardiopulmonary abnormality on this portable chest x-ray. ED Physician has read this report and agrees. Radiology Interpretation Completed By: Radiologist - EKG 12:23 Cardiac Rate: NL - 60 BPM EKG Interpretation: Sinus rhythm. No ST elevations. Nml axis. Chest Pain Course/Dx - Course Assessment/Plan: The pt is a 66 y/o F presenting to the ED c/o an episode of CP that began today at 06:00 and lasted about a minute. The pain was rated 4/10 and was described as pressure. This CP did not radiate. Pt additionally c/o palpitations characterized as flutters that began yesterday. She still has these palpitations today. She has a PMHx of A-Fib. About a year ago, she was cartioverted electrically after an apisode of A-Fib. She also notes minor dizziness this AM. Pt denies N/V. Test results are without any significant abnormalities except PTT of 51 and potassium of 3.4, for which the patient was given potassium chloride. Troponin #1 is 0.00 and troponin #2 is 0.00. The patient has remained asymptomatic in the ED and since both troponins are negative, the patient will be discharged home with follow up by PCP. The patient is hemodynamically stable and alert and oriented x3. - Diagnoses Provider Diagnoses: Chest pain Discharge - Discharge Plan Condition: Stable Disposition: HOME Patient Education Materials: Chest Pain (ED) Referrals: Isidoro Wiseman MD [Primary Care Provider] - 3 Days The documentation as recorded by the González herman Thomas accurately reflects the service I personally performed and the decisions made by , Thaddeus Clayton MD.
== END 2016-11-21 15:59 | disposition home or self-care (01) ==
LOC: ED 12:12
DX: R07.9 Chest pain, unspecified (principal); I48.91 Unspecified atrial fibrillation; F41.8 Other specified anxiety disorders; E03.9 Hypothyroidism, unspecified; I25.10 Atherosclerotic heart disease of native coronary artery without angina pectoris; I10 Essential (primary) hypertension; K21.9 Gastro-esophageal reflux disease without esophagitis; J44.9 Chronic obstructive pulmonary disease, unspecified; M19.90 Unspecified osteoarthritis, unspecified site; Z87.891 Personal history of nicotine dependence
CPT/HCPCS: 36415; 71010; 80053; 81003; 81015; 82550; 82553; 83735; 83880; 84443; 84484; 85025; 85610; 85730; 93005; 99283; A9270-GY

== ENCOUNTER → 2016-12-09 06:57 | Emergency (ER) | payer MEDICARE ==
[~2016-12-09 06:57] MED LIST: Iodixanol* (CONTRAST) 320 MG/ML 100 ML SDV IV ONE; NS 0.9% 1000 ML* 1,000 ML IV ONE; Potassium Chlor TAB* 20 MEQ TAB.ER PO ONE
[2016-12-09 08:20] LABS: Hematocrit 40 % (35-47); Hemoglobin 13.6 g/dl (12.0-16.0); Mean Corpuscular HGB Conc 34 g/dl (31-36); Mean Corpuscular Hemoglobin 28 pg (27-31); Mean Corpuscular Volume 83 fL (80-97); Mean Platelet Volume 9 um3 (7.4-10.4); Red Blood Count 4.83 10^6/ul (4.0-5.4); Red Cell Distribution Width 15 % (10.5-15); White Blood Count 5.4 10^3/ul (3.5-10.8)
[2016-12-09 08:33] LABS: ALT 20 U/L (7-52); Alkaline Phosphatase 84 U/L (34-104); Blood Urea Nitrogen 16 mg/dL (6-24); C Reactive Protein 1.29 mg/L (< 5.00); CO2 Carbon Dioxide 24 mmol/L (22-32); Calcium 9.3 mg/dL (8.6-10.3); Chloride 106 mmol/L (101-111); EGFR African American 76.9 (>60); EGFR Non-African American 59.8 (>60); Globulin 3.1 g/dL (2-4); Glucose 96 mg/dL (70-100); Lipase 39 U/L (11.0-82.0); Sodium 137 mmol/L (133-145); Total Protein 7.1 g/dL (6.4-8.9)
--- NOTE | 2016-12-09 09:07 | RAD ---
HISTORY: Left inguinal pain COMPARISONS: January 19, 2016 TECHNIQUE: Multiple transverse and longitudinal ultrasound images were obtained of the left lower extremity from the level of the common femoral vein inferiorly through to the infrapopliteal veins using grayscale, color Doppler, and spectral Doppler imaging with and without compression and with augmentation. Comparison images were obtained of the contralateral common femoral vein. FINDINGS: VEINS: The venous system of the left lower extremity is compressible throughout its course, with normal flow on color Doppler imaging and normal response to augmentation on spectral Doppler imaging. SOFT TISSUES: Unremarkable. OTHER FINDINGS: None. IMPRESSION: NO LEFT LOWER EXTREMITY DEEP VEIN THROMBOSIS
[2016-12-09 09:18] LABS: Anion Gap 7 mmol/L (2-11)
--- NOTE | 2016-12-09 09:35 | RAD ---
INDICATION: Abdominal aortic aneurysm COMPARISON: CTA chest/abdomen/pelvis June 07, 2016 TECHNIQUE: Axial source images were obtained from the hemidiaphragms to the symphysis pubis following the administration of 100 mL of Visipaque [address] angiographic technique coronal and sagittal reconstructed images were acquired. Lung bases: The lung bases are clear. Liver: The early arterial phase enhancement pattern of the liver is normal. There is no focal mass. Gallbladder: Partially contracted gallbladder. No calcified cholelithiasis. Spleen: Early arterial phase imaging of the spleen is normal. Pancreas: There is no focal pancreatic mass or ductal dilatation. Adrenal glands: There is no evidence of adrenal mass. Kidneys: The kidneys are normal in size and position. There are prompt nephrograms and there is prompt excretion bilaterally. There are no renal parenchymal masses. There is no evidence of nephrolithiasis. Adenopathy: There is no evidence of adenopathy by size criteria. Fluid collections: There are no free or localized fluid collections. Vessels: There is mild fusiform ectasia of the infrarenal abdominal aorta, unchanged. The aorta measures 2.5 x 2.4 centers in maximum transverse dimension. There are moderate aortic intimal calcifications, unchanged. The visceral branches arise satisfactorily noncontrast GI tract: CT imaging the bowel shows a large hiatal hernia. There are no additional specific CT advise of the upper lower GI tract. Pelvic organs: The uterus and adnexa appear normal Bladder: There are no bladder masses. Abdominal and pelvic soft tissues: The extraperitoneal abdominal and pelvic soft tissues appear normal.. Osseous structures: There are no acute osseous findings. Other: None IMPRESSION: ATHEROSCLEROSIS WITH MILD FUSIFORM ECTASIA OF THE INFRARENAL ABDOMINAL AORTA TO 2.5 CM, UNCHANGED FROM JUNE 07, 2016. Large hiatal hernia.
--- NOTE | 2016-12-09 10:44 | ED ---
Hugh Luke Angela scribed for Thaddeus Ward MD on 12/09/16 at 0740 . Abdominal Pain/Female - HPI Summary HPI Summary: This pt is a 66 y/o female presenting to [facility] c/o groin pain that radiates to her lower abd x4 days. Pt reports she went for a walk and heard her left hip pop , and felt a pull in her left groin area. She states 1 hour later she began to experience excruciating groin pain radiating to her lower abd, which lasted minutes and then resolved. Pt presents today still experiencing tenderness in her groin area. She notes that her pain is constant. Pt is currently on Pradaxa BID. Pt is currently seeing Dr. Tamayo for slight blood in her urine. PMHx: abdominal aortic aneurysm, left LE DVT, afib, hypothyroidism. PSHx: 2 shoulder surgeries bilaterally. - History of Current Complaint Chief Complaint: EDAbdPain Stated Complaint: LEFT GROIN PAIN//POSS BLOOD CLOT Time Seen by Provider: 12/09/16 07:27 Hx Obtained From: Patient Onset/Duration: Lasting Days Timing: Days Location: Groin Aggravating Factor(s): Nothing Alleviating Factor(s): Nothing Associated Signs and Symptoms: Negative: Urinary Symptoms Allergies/Adverse Reactions: Allergies Allergy/AdvReac Type Severity Reaction Status Date / Time Ezetimibe [From Vytorin] Allergy Intermediate Rash Verified 12/09/16 07:22 Simvastatin [From Vytorin] Allergy Intermediate Rash Verified 12/09/16 07:22 Codeine Allergy GI Upset Verified 12/09/16 07:22 Latex Allergy Rash Verified 12/09/16 07:22 PMH/Surg Hx/FS Hx/Imm Hx Endocrine/Hematology History: Reports: Hx Thyroid Disease - HYPO Cardiovascular History: Reports: Hx Aneurysm, Hx Angina, Hx Coronary Artery Disease - STENT/ANGIOPLASTY 2001, Hx Hypercholesterolemia, Hx Hypertension - ON MEDS, Other Cardiovascular Problems/Disorders - aortic aneurysm Denies: Hx Pacemaker/ICD Respiratory History: Reports: Hx Asthma, Hx Chronic Obstructive Pulmonary Disease (COPD) GI History: Reports: Hx Gastroesophageal Reflux Disease, Hx Hiatal Hernia Musculoskeletal History: Reports: Hx Arthritis Sensory History: Reports: Hx Contacts or Glasses Denies: Hx Hearing Aid Opthamlomology History: Reports: Hx Contacts or Glasses Neurological History: Reports: Hx Migraine Psychiatric History: Reports: Hx Anxiety, Hx Depression Denies: Hx Panic Disorder - Cancer History Hx Chemotherapy: No Hx Radiation Therapy: No - Surgical History Surgery Procedure, Year, and Place: BILATERAL CARPAL TUNNEL RELEASE. ROTOR CUFF REPAIR LEFT. RIGHT KNEE SCOPE. CARDIAC STENTS 2001(MULTI LINK [place]- CONDITIONAL 5 UP TO 3 T//330 G/CM) DR COTTER APPROVED HER FOR SCANNING ON 1.5 ONLY. Hx Anesthesia Reactions: No Infectious Disease History: No Infectious Disease History: Denies: Traveled Outside the [place] in Last 30 Days - Family History Known Family History: Positive: Cardiac Disease - both parents, Hypertension - Social History Alcohol Use: Occasionally Hx Substance Use: No Substance Use Type: Reports: None Hx Tobacco Use: Yes Smoking Status (MU): Former Smoker Review of Systems Negative: Fever, Chills Eyes: Negative ENT: Negative Positive: Abdominal Pain - groin pain Negative: dysuria, hematuria Musculoskeletal: Negative Skin: Negative All Other Systems Reviewed And Are Negative: Yes Physical Exam Triage Information Reviewed: Yes Vital Signs On Initial Exam: Initial Vitals Temp Pulse Resp BP Pulse Ox 97.1 F 62 16 158/96 98 12/09/16 07:17 12/09/16 07:17 12/09/16 07:17 12/09/16 07:17 12/09/16 07:17 Vital Signs Reviewed: Yes Appearance: Positive: Well-Appearing, No Pain Distress Skin: Positive: Warm, Skin Color Reflects Adequate Perfusion Head/Face: Positive: Normal Head/Face Inspection Eyes: Positive: EOMI ENT: Positive: Normal ENT inspection Neck: Positive: Nontender Respiratory/Lung Sounds: Positive: Clear to Auscultation, Breath Sounds Present Cardiovascular: Positive: RRR, Pulses are Symmetrical in both Upper and Lower Extremities. Negative: Murmur Abdomen Description: Positive: Nontender. Negative: Distended Pelvic Exam: Positive: other - she is tender in the left groin muscle area/ proximal adductors Musculoskeletal: Positive: Strength/ROM Intact - no swelling, mass or redness to the left groin adductor area. SHe is tender over these muscles. Neurological: Positive: Normal, Sensory/Motor Intact, Alert, Oriented to Person Place, Time, CN Intact II-III Psychiatric: Positive: Normal - Carina Coma Scale Best Eye Response: 4 - Spontaneous Best Motor Response: 6 - Obeys Commands Best Verbal Response: 5 - Oriented Diagnostics - Vital Signs Vital Signs Temp Pulse Resp BP Pulse Ox 12/09/16 07:17 97.1 F 62 16 158/96 98 - Laboratory Lab Results: Lab Results 12/09/16 12/09/16 12/09/16 Range/Units 08:05 08:05 08:05 WBC 5.4 (3.5-10.8) 10^3/ul RBC 4.83 (4.0-5.4) 10^6/ul Hgb 13.6 (12.0-16.0) g/dl Hct 40 (35-47) % MCV 83 (80-97) fL MCH 28 (27-31) pg MCHC 34 (31-36) g/dl RDW 15 (10.5-15) % Plt Count 157 (150-450) 10^3/ul MPV 9 (7.4-10.4) um3 Neut % (Auto) 60.9 (38-83) % Lymph % (Auto) 25.8 (25-47) % [place] % (Auto) 7.6 (1-9) % Eos % (Auto) 4.9 (0-6) % Baso % (Auto) 0.8 (0-2) % Absolute Neuts (auto) 3.3 (1.5-7.7) 10^3/ul Absolute Lymphs (auto) 1.4 (1.0-4.8) 10^3/ul Absolute Monos (auto) 0.4 (0-0.8) 10^3/ul Absolute Eos (auto) 0.3 (0-0.6) 10^3/ul Absolute Basos (auto) 0 (0-0.2) 10^3/ul Absolute Nucleated RBC 0 10^3/ul Nucleated RBC % 0.1 Sodium 137 (133-145) mmol/L Potassium TNP Chloride 106 (101-111) mmol/L Carbon Dioxide 24 (22-32) mmol/L Anion Gap 7 (2-11) mmol/L BUN 16 (6-24) mg/dL Creatinine 0.94 (0.51-0.95) mg/dL Est GFR ( Amer) 76.9 (>60) Est GFR (Non-Af Amer) 59.8 (>60) BUN/Creatinine Ratio 17.0 (8-20) Glucose 96 (70-100) mg/dL Lactic Acid 1.1 (0.5-2.0) mmol/L Calcium 9.3 (8.6-10.3) mg/dL Total Bilirubin 0.80 (0.2-1.0) mg/dL AST TNP ALT 20 (7-52) U/L Alkaline Phosphatase 84 (34-104) U/L C-Reactive Protein 1.29 (< 5.00) mg/L Total Protein 7.1 (6.4-8.9) g/dL Albumin 4.0 (3.2-5.2) g/dL Globulin 3.1 (2-4) g/dL Albumin/Globulin Ratio 1.3 (1-3) Lipase 39 (11.0-82.0) U/L 12/09/16 Range/Units 09:36 WBC (3.5-10.8) 10^3/ul RBC (4.0-5.4) 10^6/ul Hgb (12.0-16.0) g/dl Hct (35-47) % MCV (80-97) fL MCH (27-31) pg MCHC (31-36) g/dl RDW (10.5-15) % Plt Count (150-450) 10^3/ul MPV (7.4-10.4) um3 Neut % (Auto) (38-83) % Lymph % (Auto) (25-47) % [place] % (Auto) (1-9) % Eos % (Auto) (0-6) % Baso % (Auto) (0-2) % Absolute Neuts (auto) (1.5-7.7) 10^3/ul Absolute Lymphs (auto) (1.0-4.8) 10^3/ul Absolute Monos (auto) (0-0.8) 10^3/ul Absolute Eos (auto) (0-0.6) 10^3/ul Absolute Basos (auto) (0-0.2) 10^3/ul Absolute Nucleated RBC 10^3/ul Nucleated RBC % Sodium (133-145) mmol/L Potassium 3.3 L Chloride (101-111) mmol/L Carbon Dioxide (22-32) mmol/L Anion Gap (2-11) mmol/L BUN (6-24) mg/dL Creatinine (0.51-0.95) mg/dL Est GFR ( Amer) (>60) Est GFR (Non-Af Amer) (>60) BUN/Creatinine Ratio (8-20) Glucose (70-100) mg/dL Lactic Acid (0.5-2.0) mmol/L Calcium (8.6-10.3) mg/dL Total Bilirubin (0.2-1.0) mg/dL AST 22 ALT (7-52) U/L Alkaline Phosphatase (34-104) U/L C-Reactive Protein (< 5.00) mg/L Total Protein (6.4-8.9) g/dL Albumin (3.2-5.2) g/dL Globulin (2-4) g/dL Albumin/Globulin Ratio (1-3) Lipase (11.0-82.0) U/L Result Diagrams: 12/09/16 08:05 12/09/16 09:36 Lab Statement: Any lab studies that have been ordered have been reviewed, and results considered in the medical decision making process. - CT CTA abdomen/pelvis CT Interpretation: Positive (See Comments) - IMPRESSION: Atherosclerosis with mild fusiform ectasia of the infrarenal abdominal aorta to 2.5 cm, unchanged from June 07, 2016. Large hiatal hernia. ED physician has reviewed this radiology report and agrees. CT Interpretation Completed By: Radiologist - EKG 0751 Cardiac Rate: NL - 67 bpm EKG Rhythm: Sinus Rhythm EKG Interpretation: No STEMI - Additional Comments Diagnostic Additional Comments: Venous Doppler Study, Left lower extremity (as read by the radiologist): IMPRESSION: No left lower extremity deep vein thrombosis. ED physician has reviewed this radiology report and agrees. Re-Evaluation - Re-Evaluation First Eval Re-Evaluation Time: 10:34 Comment: I reviewed the CTA and US LLE results with the pt. Abdominal Pain Fem Course/Dx - Course Course Of Treatment: Pt is a 66 y/o female who presents with groin pain that radiates to her lower abd x4 days. Bloodwork, EKG, CTA abdomen/pelvis, and left lower extremity doppler study were obtained. In the ED course, pt was given IV fluids. EKG shows NSR. LLE venous dopple study is negative for DVT. CTA abd/pel shows atherosclerosis with mild fusiform ectasia of the infrarenal abdominal aorta to 2.5 cm, unchanged from June 07, 2016. Large hiatal hernia. The patient will follow up with Dr Wiseman. She is in no distress. Might benefit from PT referral. - Diagnoses Provider Diagnoses: Strain of left inguinal muscle, Strain of groin, Hypertension Discharge - Discharge Plan Condition: Good Disposition: HOME Patient Education Materials: Groin Strain (ED), Hypertension (ED) Referrals: Isidoro Wiseman MD [Primary Care Provider] - The documentation as recorded by the Hugh herman Angela accurately reflects the service I personally performed and the decisions made by me, Thaddeus Ward MD.
[2016-12-09 10:55] VITALS: BP 165/68
== END | disposition home or self-care (01) ==
LOC: ED 06:57
DX: S76.912A Strain of unspecified muscles, fascia and tendons at thigh level, left thigh, initial encounter (principal); R10.9 Unspecified abdominal pain; Z87.891 Personal history of nicotine dependence; X58.XXXA Exposure to other specified factors, initial encounter; Y93.9 Activity, unspecified; Y92.9 Unspecified place or not applicable
CPT/HCPCS: 36415; 74174; 80053; 83605; 83690; 85025; 86140; 93005; 99282; A9270-GY; Q9967

== ENCOUNTER 2017-01-24 13:29 | Observation (INO) | payer MEDICARE ==
[2017-01-24] MEDS ORDERED: NS 0.9% 1000 ML* 1,000 ML IV ONE (13:40)
[2017-01-24] MEDS ORDERED: Diltiazem IV* 5 MG/ML 5 ML VIAL (for loading dose/IV Push) (25 MG) IV SLOW PU ONE (13:49)
[2017-01-24 14:09] LABS: Hematocrit 45 % (35-47); Hemoglobin 15.1 g/dl (12.0-16.0); Mean Corpuscular HGB Conc 34 g/dl (31-36); Mean Corpuscular Hemoglobin 28 pg (27-31); Mean Corpuscular Volume 83 fL (80-97); Mean Platelet Volume 9 um3 (7.4-10.4); Red Cell Distribution Width 14 % (10.5-15); White Blood Count 6.6 10^3/ul (3.5-10.8)
[2017-01-24 14:24] LABS: BUN/Creatinine Ratio 12.1 (8-20); Calcium 10.1 mg/dL (8.6-10.3); EGFR African American 79.8 (>60); Globulin 3.4 g/dL (2-4); Magnesium 1.9 mg/dL (1.9-2.7); Potassium 3.5 mmol/L (3.5-5.0); Total Bilirubin 0.8 mg/dL (0.2-1.0); Total Protein 7.4 g/dL (6.4-8.9); Troponin I 0.01 ng/mL (<0.04)
[2017-01-24 14:58] LABS: TSH (Thyroid Stimulating Horm) 3.29 mcIU/mL (0.34-5.60)
--- NOTE | 2017-01-24 15:02 | RAD ---
Indication: Shortness of breath and palpitations. Single frontal view of the chest performed at 1410 hours was reviewed. Comparison is made with previous exam dated November 21, 2016. No mediastinal shift is noted. Heart is of normal size and configuration. Lung bauman appear clear. IMPRESSION: NO ACTIVE CARDIOPULMONARY DISEASE IS NOTED.
[2017-01-24] MEDS ORDERED: ALPRAZolam TAB* 0.5 MG PO PRN (15:12)
[2017-01-24] MEDS ORDERED: Albuterol HFA INHALER* 8 gm MDI INH PRN (15:12)
[2017-01-24] MEDS ORDERED: Omeprazole CAP* 20 MG PO PRN (15:12)
[2017-01-24 15:17] LABS: Urine Bacteria Absent (Absent); Urine Bilirubin Negative (Negative); Urine Glucose Negative (Negative); Urine Nitrite Negative (Negative)
[2017-01-24] MEDS ORDERED: Potassium Chlor TAB* 20 MEQ TAB.ER PO ONE (15:29)
[2017-01-24] MEDS ORDERED: Diltiazem DRIP* 100 MG/100 ML ADDV.BAG IVPB SCH (16:00)
[2017-01-24] MEDS: Metoprolol Tartrate TAB* 50 mg PO SCH (16:09)
--- NOTE | 2017-01-24 19:22 | HP ---
CC: Dr. Wiseman; Dr. Nava * HISTORY AND PHYSICAL: DATE OF ADMISSION: 01/24/17 TIME OF EVALUATION: 3:00 p.m. PRIMARY CARE PROVIDER: Dr. Wiseman. HAT CONDITIONER: Dr. Nava. CHIEF COMPLAINT: "I feel blah." HISTORY OF PRESENT ILLNESS: Mrs. Low is a 66-year-old lady with a past medical history of atrial fibrillation, hypertension, hyperlipidemia, COPD, CAD , status post stent in 2001 and 70% occlusion of the obtuse marginal from left circumflex, osteoarthritis, chronic pain, AAA that presented to the emergency room with complaints of palpitations. The patient states that she developed a cold last week and has felt "blah" since then and initially she thought this was secondary to her infection. She went to a pharmacy and the pharmacist recommended her Tussin and she did take the medication, but described no significant improvement. She states she has been in AFib for at least 4 days, but today she felt worse with palpitations and some shortness of breath and she already had a routine appointment scheduled with Dr. Nava. While in the appointment, she was found to be in atrial fibrillation with rapid heart rate and was sent to the emergency room for further evaluation. She denies chest pain or pressure. She did have some mild shortness of breath, but she feels better now. Last episode of AFib was a month ago, and she cardioverted spontaneously. The last time she needed a cardioversion was more than 2 years ago. PAST MEDICAL HISTORY: 1. Paroxysmal atrial fibrillation. 2. Hypertension. 3. Hyperlipidemia. 4. COPD. 5. Coronary artery disease. 6. Osteoarthritis. 7. Chronic pain. 8. AAA. MEDICATIONS: 1. Albuterol HFA 2 puffs inhaled q.6 hours p.r.n. shortness of breath. 2. Alprazolam 0.5 mg p.o. t.i.d. p.r.n. anxiety. 3. Aspirin 81 mg p.o. daily. 4. Cholecalciferol 2000 units p.o. daily. 5. Dabigatran 150 mg p.o. b.i.d. 6. Folic acid with vitamin B6, 1 tablet p.o. daily. 7. Hydrochlorothiazide 25 mg p.o. daily. 8. Levothyroxine 75 mcg p.o. daily. 9. Metoprolol tartrate 50 mg p.o. b.i.d. 10. Omeprazole 20 mg p.o. daily as needed for heartburn. 11. Potassium chloride 20 mEq p.o. daily. 12. Simvastatin 10 mg p.o. at bedtime. ALLERGIES: With VYTORIN, the patient had a rash. With CODEINE, she had GI upset and with LATEX, she had rash. FAMILY HISTORY: Mother had a history of heart disease, diabetes, and Alzheimer' s and her father had a history of heart disease and from aneurysm. SOCIAL HISTORY: The patient quit smoking 7 years ago. She drinks alcohol occasionally. No history of drug use. Surrogate decision maker is her , Yovany Low; phone number [phone]. REVIEW OF SYSTEMS: A 14-point review of systems was performed and all the pertinent negative and positive findings are in the HPI. PHYSICAL EXAMINATION GENERAL: The patient is a pleasant elderly lady, lying in bed, in no acute distress. VITAL SIGNS: Temperature 98, heart rate is 99, respiratory rate is 17, oxygen saturation is 98% on room air, blood pressure 118/83. CHEST: Breath sounds present bilaterally with no added sounds. CVS: Normal S1, S2. Irregularly irregular. ABDOMEN: Soft. Bowel sounds are present. EXTREMITIES: Mild edema. NEURO: She is alert, oriented x3. She is able to move all 4 extremities. LABORATORY/IMAGING DATA: The patient had a CBC that showed a WBC of 6.6, hemoglobin of 15.1, hematocrit of 45, platelets of 199,000 with 51% neutrophils. Chemistry showed a sodium of 136, potassium 3.5, chloride of 103, bicarb of 24, BUN of 11, creatinine of 0.91, glucose of 94, lactic acid of 1.1, calcium 10.1, magnesium of 1.9. LFTs are normal. TSH is 3.29. Chest x-ray showed no active cardiopulmonary disease. EKG done on 01/24/17 at 1:53 p.m. showed atrial fibrillation at 120 beats per minute with PVCs. No ST-T changes. This is different from her prior EKG from December 2016; at that time she was in normal sinus rhythm. ASSESSMENT AND PLAN: Mrs. Low is a 66-year-old lady with a past medical history of paroxysmal atrial fibrillation, hypertension, hyperlipidemia, chronic obstructive pulmonary disease, coronary artery disease, osteoarthritis, chronic pain, abdominal aortic aneurysm that presented to the emergency room with atrial fibrillation with rapid ventricular rate. 1. Atrial fibrillation with rapid ventricular rate. The patient will be admitted and started on a Cardizem drip for rate control. Her potassium is 3.5 and we are going to replete it. She will be continued on her metoprolol and Pradaxa. If she does not convert to sinus rhythm with Cardizem, the plan is for cardiology consult for cardioversion in the morning. 2. We will continue metoprolol and hydrochlorothiazide. 3. Hyperlipidemia. We will continue simvastatin. 4. Coronary artery disease. We will continue aspirin, statin, and beta- jada. 5. Chronic obstructive pulmonary disease, stable. We will continue bronchodilators. 6. DVT prophylaxis. The patient has a score of 3 on the DVT Prophylaxis Risk Assessment Guide and she is already anticoagulated with Pradaxa. 7. Code status is full. TIME SPENT: Approximately 60 minutes was spent with the patient interview, medical records review, physical examination to complete this admission; more than half of this time was spent [id number] with the patient and coordination of care. [id number]/[facility] #: [id number] ROHIT
[2017-01-24] MEDS: CMCS: Dabigatran CAP(NF) 150 MG CAP PO SCH (20:53)
[2017-01-24] MEDS ORDERED: Atorvastatin* 10 MG TAB PO SCH (21:00)
[2017-01-25] MEDS ORDERED: Levothyroxine TAB* 75 MCG TAB PO SCH (06:00)
[2017-01-25] MEDS: Metoprolol Tartrate TAB* 50 mg PO SCH (08:02)
[2017-01-25] MEDS: CMCS: Dabigatran CAP(NF) 150 MG CAP PO SCH (08:02)
[2017-01-25] MEDS ORDERED: Potassium Chlor TAB* 20 MEQ TAB.ER PO SCH (08:30)
[2017-01-25] MEDS ORDERED: Lidocaine 2% VISCOUS* 15 ML UDC ONE (08:44)
[2017-01-25] MEDS ORDERED: fentaNYL* 50 MCG/ML 2 ML VIAL (100 MCG VIAL) ONE (08:44)
[2017-01-25] MEDS ORDERED: Naloxone* 0.4 MG/ML 1 ML VIAL ONE (08:44)
[2017-01-25] MEDS ORDERED: Flumazenil* 0.1 MG/ML 5 ML MDV ONE (08:44)
--- NOTE | 2017-01-25 08:44 | ED ---
Hugh Luke Angela scribed for Thaddeus Clayton MD on 01/24/17 at 1352 . HPI Cardiac - HPI Summary HPI Summary: This pt is a 66 y/o female presenting to [facility] from Dr. Nava's office for atrial fibrillation. 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 Nava, at 1300 today when she was found in atrial fibrillation. Pt additionally c/o SOB, palpitations, mild chest pain. Pt notes she is just getting over a head cold and for the past few days she has felt weak and SOB. Pt is currently on Pradaxa and aspirin. Pt was at [facility] [facility] last month for afib. - History of Current Complaint Chief Complaint: EDShortnessOfBreath Stated Complaint: AFIB Time Seen by Provider: 01/24/17 13:40 Hx Obtained From: Patient Onset/Duration: Started Hours Ago, Still Present Timing: Constant, Lasting Hours Pain Intensity: 0 Chest Pain Location: Diffuse Chest Pain Radiates: No Associated Signs and Symptoms: Positive: Chest Pain - mild, Shortness of Breath , Palpitations, Other: - generalized weakness - Additional Pertinent History Primary Care Physician: [id number] - Allergy/Home Medications Allergies/Adverse Reactions: Allergies Allergy/AdvReac Type Severity Reaction Status Date / Time Ezetimibe [From Vytorin] Allergy Intermediate Rash Verified 12/09/16 07:22 Simvastatin [From Vytorin] Allergy Intermediate Rash Verified 12/09/16 07:22 Codeine Allergy GI Upset Verified 12/09/16 07:22 Latex Allergy Rash Verified 12/09/16 07:22 Home Medications: Home Medications Cholecalciferol TAB* [Vitamin D TAB*] 2,000 units PO DAILY 01/24/17 [History Confirmed 01/24/17] Folic Acid-Vitamin B6-Vitamin [Folplex 2.2] 1 tab PO DAILY 01/24/17 [History Confirmed 01/24/17] Potassium Chlor TAB* [Klor Con ER TAB*] 20 meq PO DAILY 01/24/17 [History Confirmed 01/24/17] PMH/Surg Hx/FS Hx/Imm Hx Endocrine/Hematology History: Reports: Hx Thyroid Disease - HYPO Denies: Hx Diabetes Cardiovascular History: Reports: Hx Aneurysm, Hx Angina, Hx Coronary Artery Disease - STENT/ANGIOPLASTY 2001, Hx Hypercholesterolemia, Hx Hypertension - ON MEDS, Other Cardiovascular Problems/Disorders - aortic aneurysm Denies: Hx Pacemaker/ICD Respiratory History: Reports: Hx Asthma, Hx Chronic Obstructive Pulmonary Disease (COPD) GI History: Reports: Hx Gastroesophageal Reflux Disease, Hx Hiatal Hernia History: Denies: Hx Renal Disease Musculoskeletal History: Reports: Hx Arthritis Sensory History: Reports: Hx Contacts or Glasses Denies: Hx Hearing Aid Opthamlomology History: Reports: Hx Contacts or Glasses Neurological History: Reports: Hx Migraine Psychiatric History: Reports: Hx Anxiety, Hx Depression Denies: Hx Panic Disorder - Cancer History Hx Chemotherapy: No Hx Radiation Therapy: No - Surgical History Surgery Procedure, Year, and Place: BILATERAL CARPAL TUNNEL RELEASE. ROTOR CUFF REPAIR LEFT. RIGHT KNEE SCOPE. CARDIAC STENTS 2001(MULTI LINK [place]- CONDITIONAL 5 UP TO 3 T//330 G/CM) DR COTTER APPROVED HER FOR SCANNING ON 5 ONLY. Hx Anesthesia Reactions: No Infectious Disease History: No Infectious Disease History: Denies: Traveled Outside the [place] in Last 30 Days - Family History Known Family History: Positive: Cardiac Disease - both parents, Hypertension - Social History Alcohol Use: Occasionally Hx Substance Use: No Substance Use Type: Reports: None Hx Tobacco Use: Yes Smoking Status (MU): Former Smoker Review of Systems Constitutional: Other - generalized weakness Negative: Fever, Chills Cardiovascular: Other - atrial fibrillation Positive: Palpitations, Chest Pain - mild Positive: Shortness Of Breath All Other Systems Reviewed And Are Negative: Yes Physical Exam - Summary Physical Exam Summary: VITAL SIGNS: Reviewed. GENERAL: Patient is a well-developed and nourished female who is lying comfortable in the stretcher. Patient is not in any acute respiratory distress. HEAD AND FACE: No signs of trauma. No ecchymosis, hematomas or skull depressions. No sinus tenderness. EYES: PERRLA, EOMI x 2, No injected conjunctiva, no nystagmus. EARS: Hearing grossly intact. Ear canals and tympanic membranes are within normal limits. MOUTH: Oropharynx within normal limits. NECK: Supple, trachea is midline, no adenopathy, no JVD, no carotid bruit, no c- spine tenderness, neck with full ROM. CHEST: Symmetric, no tenderness at palpation LUNGS: Clear to auscultation bilaterally. No wheezing or crackles. CVS: Irregularly irregular rate and rhythm, S1 and S2 present, no murmurs or gallops appreciated. ABDOMEN: Soft, non-tender. No signs of distention. No rebound no guarding, and no masses palpated. Bowel sounds are normal. EXTREMITIES: FROM in all major joints, no edema, no cyanosis or clubbing. NEURO: Alert and oriented x 3. No acute neurological deficits. Speech is normal and follows commands. SKIN: Dry and warm Triage Information Reviewed: Yes Vital Signs On Initial Exam: Initial Vitals Temp Pulse Resp BP Pulse Ox 98 F 156 22 90/50 99 01/24/17 13:32 01/24/17 13:32 01/24/17 13:32 01/24/17 13:32 01/24/17 13:32 Vital Signs Reviewed: Yes Diagnostics - Vital Signs Vital Signs Temp Pulse Resp BP Pulse Ox 01/24/17 13:44 105 15 99 01/24/17 13:32 98 F 156 22 90/50 99 - Laboratory Result Diagrams: 01/24/17 13:54 01/24/17 13:54 Lab Statement: Any lab studies that have been ordered have been reviewed, and results considered in the medical decision making process. - Radiology Chest XR Xray Interpretation: No Acute Changes - IMPRESSION: No active cardiopulmonary disease is noted. ED physician has reviewed this radiology report and agrees. Radiology Interpretation Completed By: Radiologist - EKG 1353 Cardiac Rate: Tachycardia EKG Rhythm: Atrial Fibrillation - at 120 bpm EKG Interpretation: No ST elevation Disposition - Course Assessment/Plan: This pt is a 66 y/o female [facility]ava[facility] office for atrial fibrillation. 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 Nava, at 1300 today when she was found in atrial fibrillation. Pt additionally c/o SOB, palpitations, mild chest pain. Pt notes she is just getting over a head cold and for the past few days she has felt weak and SOB. Pt is currently on Pradaxa and aspirin. Pt was at [facility] last month for afib. Test results without any significant abnormalities. The EKG shows atrial fibrillation with RVR. In the ED course, the pt was given IV fluids and cardizem. The heart rate is [address] Nava requested for the pt to be admitted and be NPO after midnight for a possible cardiversion tomorrow. I discussed the pts case with Dr. Arango who accepted the pt for admission. Pt is hemodynamically stable, alert and oriented x3. - Diagnoses Provider Diagnoses: Atrial fibrillation with RVR - Physician Notifications Discussed Care Of Patient With: Coleen Arango Time Discussed With Above Provider: 14:41 Instructed by Provider To: Other - I discussed pt care with Dr. Arango, who has agreed to admit the pt. Discharge - Discharge Plan Condition: Stable Disposition: ADMITTED TO [facility] documentation as recorded by the Hugh herman Angela accurately reflects the service I personally performed and the decisions made by Forrest medeiros Walter, MD.
[2017-01-25] MEDS ORDERED: Midazolam* 1 MG/ML 10 ML VIAL (10 MG) ONE (08:45)
[2017-01-25] MEDS ORDERED: Aspirin EC Low Dose* 81 MG TAB.EC PO SCH (09:00)
[2017-01-25] MEDS ORDERED: Hydrochlorothiazide TAB* 25 MG PO SCH (09:00)
[2017-01-25] MEDS ORDERED: Cholecalciferol TAB* 1000 UNITS PO SCH (09:00)
[2017-01-25 10:28] VITALS: BP 114/72
--- NOTE | 2017-01-25 13:01 | CARD ---
CC: Dr. Nava; Dr. Wiseman ELECTRICAL CARDIOVERSION: DATE OF PROCEDURE: 01/25/17 PRIMARY CARE PHYSICIAN: Dr. Wiseman. PROCEDURE: Electrical cardioversion. INDICATION: Atrial fibrillation. DESCRIPTION OF PROCEDURE: The indications, risks, and benefits of the procedure were discussed with the patient and verified that she had been taking her Pradaxa safely for over a month. The patient a nd her daughter who was present where they were amenable to proceeding. A time-out procedure was called. The patient then received a total of 5 mg of Versed and 50 mcg of f entanyl for sedation. Using AP patches, 120 joules were delivered synchronously across the chest wal l with successful cardioversion to normal sinus rhythm/sinus fabian. She was hemodynamically stable t hroughout the procedure and in recovery. Currently, she is in sinus bradycardia at a rate of 50 beat s per minute. Oxygen saturation 97% on 2 L nasal cannula, respiratory rate is 12, and blood pressure 146/73. CONCLUSION: Successful electrical cardioversion with no complications. [id number]/[facility] #: [id number]
--- NOTE | 2017-01-25 23:50 | DS ---
CC: Dr. Wiseman; Dr. Nava DISCHARGE SUMMARY: DATE OF ADMISSION: 01/24/17 DATE OF DISCHARGE: 01/25/17 PRIMARY CARE PROVIDER: Dr. Wiseman. ASSISTANT FOOD SERVICE MANAGER: Dr. Nava. DISCHARGE DIAGNOSIS: Atrial fibrillation with rapid ventricular rate. SECONDARY DIAGNOSES: 1. Paroxysmal atrial fibrillation. 2. Hypertension. 3. Hyperlipidemia. 4. Chronic obstructive pulmonary disease. 5. Coronary artery disease. 6. Osteoarthritis. 7. Chronic pain. 8. Abdominal aortic aneurysm. MEDICATION LIST: 1. Cholecalciferol 2000 units p.o. daily. 2. Omeprazole 20 mg p.o. daily as needed for heartburn. 3. Hydrochlorothiazide 25 mg p.o. daily. 4. Levothyroxine 75 mcg p.o. daily. 5. Alprazolam 0.5 mg p.o. t.i.d. as needed for anxiety. 6. Folic acid and vitamin B6, 1 tablet p.o. daily. 7. Albuterol HFA 2 puffs inhaled q.6 hours p.r.n. shortness of breath. 8. Metoprolol tartrate 50 mg p.o. b.i.d. 9. Pradaxa 150 mg p.o. b.i.d. 10. Aspirin 81 mg p.o. daily. 11. Simvastatin 10 mg p.o. at bedtime. Medication change: Potassium chloride 20 mEq p.o. b.i.d. HOSPITAL COURSE: Ms. Low is a 66-year-old lady with a past medical history as stated above that pr esented to the emergency room with complaints of palpitations, found to be in atrial fibrillation wit h rapid ventricular rate. For more details about her presentation, I refer you to her history and ph ysical. The patient was admitted to the telemetry floor and started on Cardizem drip and although her rate wa s controlled, she failed to convert, so this morning she was cardioverted by Dr. Sagastume and she felt much improved after the procedure. She is asymptomatic at this time and stable to be discharged home. PHYSICAL EXAMINATION: Vital Signs: Temperature 97.4, heart rate is 65, respiratory rate is 18, oxyg en saturation is 100% on room air, blood pressure 114/72. General: The patient is a pleasant lady, sitting up in bed, in no acute distress. CVS: Normal S1 and S2. Regular rate and rhythm. Chest: Breath sounds present bilaterally with no added sounds. Extremities: No edema. Neuro: She is aler t, awake, and oriented x3. Able to move all 4 extremities. DIET: Heart healthy diet. The patient was advised to avoid caffeine. ACTIVITIES: As tolerated. DISPOSITION: To home. STATUS WHILE IN THE HOSPITAL: Observation. Please keep in mind, this is a summarized version of this patient's hospital stay. If you need more i nformation, please feel free to call me at [phone] or please obtain the full medical records. TIME SPENT: Approximately 45 minutes was spent to complete the discharge. [id number]/[id number] #: [id number]
== END 2017-01-25 13:00 | disposition home or self-care (01) ==
LOC: ED 13:29 → MEDTELE 15:08
PROVIDERS: ADMIT Internal Medicine; ATTEND Internal Medicine
PROC: 5A2204Z Restoration of Cardiac Rhythm, Single (ICD-10-PCS; principal; 2017-01-24)
DX: I48.0 Paroxysmal atrial fibrillation (principal); Z79.01 Long term (current) use of anticoagulants; I10 Essential (primary) hypertension; E78.5 Hyperlipidemia, unspecified; J44.9 Chronic obstructive pulmonary disease, unspecified; I25.10 Atherosclerotic heart disease of native coronary artery without angina pectoris; I71.4 Abdominal aortic aneurysm, without rupture; G89.29 Other chronic pain; M19.90 Unspecified osteoarthritis, unspecified site; Z79.899 Other long term (current) drug therapy; Z79.82 Long term (current) use of aspirin; Z88.8 Allergy status to other drugs, medicaments and biological substances; Z87.891 Personal history of nicotine dependence; R06.02 Shortness of breath
CPT/HCPCS: 36415; 71010; 80053; 81003; 81015; 82550; 83605; 83735; 83880; 84443; 84484; 85025; 87086; 93005; 93312; 93325; 96365; 96366; 96375; 99156; 99157; 99284; A9270-GY; G0378; J2250; J2310; J3010

== ENCOUNTER 2017-03-17 07:51 | Observation (INO) | payer MEDICARE ==
[2017-03-17] MEDS ORDERED: NS 0.9% 1000 ML* 1,000 ML IV ONE (08:05)
[2017-03-17] MEDS ORDERED: Diltiazem IV* 5 MG/ML 5 ML VIAL (for loading dose/IV Push) (25 MG) IV PUSH ONE (08:05)
[2017-03-17] MEDS ORDERED: Aspirin Low Dose CHEW TAB* 81 MG PO ONE (08:05)
[2017-03-17] MEDS ORDERED: Diltiazem IV VIAL* 125 MG/25 ML VIAL ONE (08:08)
--- NOTE | 2017-03-17 08:39 | RAD ---
Indication: Atrial fibrillation. Single frontal view of the chest performed at 0815 hours was reviewed. Comparison is made with previous exam dated January 24, 2017. No mediastinal shift is noted. Heart is of normal size and configuration. Lung bauman appear clear. IMPRESSION: NO ACTIVE CARDIOPULMONARY DISEASE IS NOTED.
[2017-03-17 08:42] LABS: ABS Basophils 0 10^3/ul (0-0.2); ABS Eosinophils 0.2 10^3/ul (0-0.6); ABS Lymphocytes 1.5 10^3/ul (1.0-4.8); ABS Monocytes 0.6 10^3/ul (0-0.8); ABS Neutrophils 3.1 10^3/ul (1.5-7.7); ABS Nucleated RBC 0 10^3/ul; Eosinophil % 4.2 % (0-6); Hematocrit 41 % (35-47); Hemoglobin 13.9 g/dl (12.0-16.0); Mean Corpuscular HGB Conc 34 g/dl (31-36); Mean Corpuscular Hemoglobin 29 pg (27-31); Mean Corpuscular Volume 84 fL (80-97); Mean Platelet Volume 9 um3 (7.4-10.4); Nucleated Red Blood Cells % 0; Platelet Count 169 10^3/ul (150-450); Red Blood Count 4.89 10^6/ul (4.0-5.4); Red Cell Distribution Width 14 % (10.5-15); White Blood Count 5.4 10^3/ul (3.5-10.8)
[2017-03-17 08:51] LABS: INR 1.09 (0.77-1.02)
[2017-03-17 09:00] LABS: EGFR Non-African American 72.8 (>60)
[2017-03-17] MEDS ORDERED: Iohexol 350* (CONTRAST) 500 ML MDV IV ONE (09:20)
[2017-03-17 09:32] LABS: Urine Appearance Clear; Urine Blood 1+ (Negative); Urine Color Straw; Urine Ketones Negative (Negative); Urine Protein Negative (Negative); Urine Specific Gravity 1.006 (1.010-1.030); Urine Urobilinogen Negative (Negative)
--- NOTE | 2017-03-17 09:46 | RAD ---
Indication: Atrial fibrillation. Cardiac ablation. Patient is now currently short of breath. Contrast: Administered 70.2 ml of OMNIPAQUE 350 mg/ml CTA of the chest was performed after IV contrast administration. Coronal and sagittal reconstructed images were obtained. The pulmonary arterial tree is well opacified. There are no filling defects present to suggest pulmonary embolus. There is no mediastinal or hilar adenopathy noted. The heart is of normal size without evidence of pericardial effusion. The aorta demonstrates no definite aortic dissection. The trachea and major bronchi appear patent. Lung bauman demonstrate no evidence of alveolar consolidation. No pleural fluid is identified. No focal nodules are identified. The visualized abdominal organs are grossly unremarkable. There is a moderate-sized hiatal hernia noted. IMPRESSION: No evidence of pulmonary embolus is noted. No evidence of aortic dissection.
[2017-03-17] MEDS ORDERED: Diltiazem DRIP* 100 MG/100 ML ADDV.BAG IVPB ONE (11:14)
[2017-03-17] MEDS ORDERED: ALPRAZolam TAB* 0.5 MG PO ONE (11:58)
[2017-03-17] MEDS ORDERED: Diltiazem IV VIAL* 125 MG in NS 0.9% 100 ML* 100 ML IV ONE (12:00)
[2017-03-17] MEDS ORDERED: Albuterol HFA INHALER* 8 gm MDI INH PRN (13:38)
[2017-03-17] MEDS ORDERED: ALPRAZolam TAB* 0.5 MG PO PRN (13:38)
[2017-03-17] MEDS ORDERED: Omeprazole CAP* 20 MG PO PRN (13:38)
--- NOTE | 2017-03-17 18:29 | ED ---
Doug Luke Stephanie, scribed for Neema Fitch MD on 03/17/17 at 0940 . HPI Chest Pain - HPI Summary HPI Summary: The pt is a 67 y/o F BIBA to the ED with c/o CP and palpitations that began at 03:30 today. The pt awoke with the pain. She describes the pain as a chest heaviness located in the middle of the chest. Symptoms include diarrhea, abd pain (began on 03/15/17), SOB and interscapular pain (began a few weeks ago). Pt denies nausea. The pt was scheduled for a classification counselor appointment on to wear a Holter monitor. The pt is currently taking Pradaxa. Pt has hx paroxysmal afib, and was cardioverted in 01/2017. Pt has a known AAA and is followed by Dr. Kat in [place]. - History of Current Complaint Chief Complaint: EDChestPainROMI Time Seen by Provider: 03/17/17 08:05 Hx Obtained From: Patient, Family/Security Shift Supervisor - , Medical Records Onset/Duration: Started Hours Ago, Still Present Time of Onset: 03:30 Timing: Constant Initial Severity: Severe Current Severity: Moderate Pain Intensity: 0 Pain Scale Used: 0-10 Numeric Chest Pain Location: Mid Sternal Chest Pain Radiates: Yes Chest Pain Radiates To:: Other - R abdomen and interscapular Character: Heaviness, Pounding, Pressure/Squeezing Aggravating Factor(s): Nothing Alleviating Factor(s): Nothing Associated Signs and Symptoms: Positive: Shortness of Breath, Abdominal Pain, Other: - diarrhea, interscapular pain,. Negative: Nausea Related History: Similar Episode/Dx as: - afib with RVR - Additional Pertinent History Primary Care Physician: [id number] - Allergy/Home Medications Allergies/Adverse Reactions: Allergies Allergy/AdvReac Type Severity Reaction Status Date / Time Ezetimibe [From Vytorin] Allergy Intermediate Rash Verified 03/17/17 08:04 Simvastatin [From Vytorin] Allergy Intermediate Rash Verified 03/17/17 08:04 Codeine Allergy GI Upset Verified 03/17/17 08:04 Latex Allergy Rash Verified 03/17/17 08:04 Home Medications: Home Medications Aspirin EC TAB* [Ecotrin EC TAB*] 325 mg PO DAILY 03/17/17 [History Confirmed ] PMH/Surg Hx/FS Hx/Imm Hx Previously Healthy: No Endocrine/Hematology History: Reports: Hx Thyroid Disease - HYPO Denies: Hx Diabetes Cardiovascular History: Reports: Hx Aneurysm, Hx Angina, Hx Atrial Fibrillation , Hx Coronary Artery Disease - STENT/ANGIOPLASTY 2001, Hx Hypercholesterolemia, Hx Hypertension - ON MEDS, Other Cardiovascular Problems/Disorders - AAA Denies: Hx Pacemaker/ICD Respiratory History: Reports: Hx Asthma, Hx Chronic Obstructive Pulmonary Disease (COPD) GI History: Reports: Hx Gastroesophageal Reflux Disease, Hx Hiatal Hernia History: Denies: Hx Renal Disease Musculoskeletal History: Reports: Hx Arthritis Sensory History: Reports: Hx Contacts or Glasses Denies: Hx Hearing Aid Opthamlomology History: Reports: Hx Contacts or Glasses Neurological History: Reports: Hx Migraine Psychiatric History: Reports: Hx Anxiety, Hx Depression Denies: Hx Panic Disorder - Cancer History Hx Chemotherapy: No Hx Radiation Therapy: No - Surgical History Surgery Procedure, Year, and Place: BILATERAL CARPAL TUNNEL RELEASE. ROTOR CUFF REPAIR LEFT. RIGHT KNEE SCOPE. CARDIAC STENTS 2001(MULTI LINK [place]- CONDITIONAL 5 UP TO 3 T//330 G/CM) DR COTTER APPROVED HER FOR SCANNING ON 1.5 ONLY. Hx Anesthesia Reactions: No Infectious Disease History: No Infectious Disease History: Denies: Traveled Outside the [place] in Last 30 Days - Family History Known Family History: Positive: Cardiac Disease - both parents, Hypertension - Social History Occupation: Disabled Lives: With Family Alcohol Use: Rare Alcohol Amount: wine Hx Substance Use: No Substance Use Type: Reports: None Hx Tobacco Use: Yes Smoking Status (MU): Former Smoker Review of Systems Negative: Fever Positive: Palpitations, Chest Pain Positive: Shortness Of Breath Positive: Abdominal Pain, Diarrhea. Negative: Nausea Positive: Other - interscapular pain Skin: Negative Neurological: Negative Psychological: Normal All Other Systems Reviewed And Are Negative: Yes Physical Exam - Summary Physical Exam Summary: Appearance: Ill-appearing, moderate pain distress, Well-nourished Skin: Warm, color reflects adequate perfusion Head: Normal Head/Face inspection Eyes: Conjunctiva clear ENT: Normal inspection Neck: Supple, no nodes, no JVD. Respiratory: Lungs clear, Normal breath sounds, no respiratory distress Cardio: Irregular HR, No murmur, pulses normal, brisk capillary refill Abdomen: No masses palpated in abdomen. Abd nontender Bowel sounds: present Musculoskeletal: Strength Intact/ ROM intact. No calf tenderness. No edema. Neuro: Alert, muscle tone normal, facial symmetry, speech normal, sensory/motor intact Psychological: Normal Triage Information Reviewed: Yes Vital Signs On Initial Exam: Initial Vitals Temp Pulse Resp BP Pulse Ox 98.5 F 102 18 165/73 98 03/17/17 07:53 03/17/17 07:53 03/17/17 07:53 03/17/17 07:53 03/17/17 07:53 Vital Signs Reviewed: Yes - Carina Coma Scale Coma Scale Total: 15 Diagnostics - Vital Signs Vital Signs Temp Pulse Resp BP Pulse Ox 03/17/17 09:01 83 21 131/92 95 03/17/17 09:00 23 03/17/17 08:17 97 03/17/17 08:01 149/94 03/17/17 08:00 104 15 97 03/17/17 07:53 98.5 F 102 18 165/73 98 - Laboratory Lab Results: Lab Results 03/17/17 03/17/17 03/17/17 Range/Units 08:30 08:30 08:30 WBC 5.4 (3.5-10.8) 10^3/ul RBC 4.89 (4.0-5.4) 10^6/ul Hgb 13.9 (12.0-16.0) g/dl Hct 41 (35-47) % MCV 84 (80-97) fL MCH 29 (27-31) pg MCHC 34 (31-36) g/dl RDW 14 (10.5-15) % Plt Count 169 (150-450) 10^3/ul MPV 9 (7.4-10.4) um3 Neut % (Auto) 57.1 (38-83) % Lymph % (Auto) 28.0 (25-47) % [place] % (Auto) 10.2 H (1-9) % Eos % (Auto) 4.2 (0-6) % Baso % (Auto) 0.5 (0-2) % Absolute Neuts (auto) 3.1 (1.5-7.7) 10^3/ul Absolute Lymphs (auto) 1.5 (1.0-4.8) 10^3/ul Absolute Monos (auto) 0.6 (0-0.8) 10^3/ul Absolute Eos (auto) 0.2 (0-0.6) 10^3/ul Absolute Basos (auto) 0 (0-0.2) 10^3/ul Absolute Nucleated RBC 0 10^3/ul Nucleated RBC % 0 INR (Anticoag Therapy) (0.77-1.02) APTT (26.0-36.3) seconds D-Dimer, Quantitative (Less Than 230) ng/mL Sodium 140 (133-145) mmol/L Potassium 3.6 (3.5-5.0) mmol/L Chloride 109 (101-111) mmol/L Carbon Dioxide 25 (22-32) mmol/L Anion Gap 6 (2-11) mmol/L BUN 14 (6-24) mg/dL Creatinine 0.79 (0.51-0.95) mg/dL Est GFR ( Amer) 93.6 (>60) Est GFR (Non-Af Amer) 72.8 (>60) BUN/Creatinine Ratio 17.7 (8-20) Glucose 93 (70-100) mg/dL Lactic Acid (0.5-2.0) mmol/L Calcium 9.2 (8.6-10.3) mg/dL Magnesium 1.9 (1.9-2.7) mg/dL Total Bilirubin 0.60 (0.2-1.0) mg/dL AST 22 (13-39) U/L ALT 18 (7-52) U/L Alkaline Phosphatase 79 (34-104) U/L Total Creatine Kinase 74 (10-223) U/L CK-MB (CK-2) 1.4 (0.6-6.3) ng/mL Troponin I 0.00 (<0.04) ng/mL B-Natriuretic Peptide 106 H ( - 100) pg/mL Total Protein 6.7 (6.4-8.9) g/dL Albumin 3.7 (3.2-5.2) g/dL Globulin 3.0 (2-4) g/dL Albumin/Globulin Ratio 1.2 (1-3) TSH Pending Thyroxine (T4) Pending 03/17/17 03/17/17 Range/Units 08:30 08:30 WBC (3.5-10.8) 10^3/ul RBC (4.0-5.4) 10^6/ul Hgb (12.0-16.0) g/dl Hct (35-47) % MCV (80-97) fL MCH (27-31) pg MCHC (31-36) g/dl RDW (10.5-15) % Plt Count (150-450) 10^3/ul MPV (7.4-10.4) um3 Neut % (Auto) (38-83) % Lymph % (Auto) (25-47) % [place] % (Auto) (1-9) % Eos % (Auto) (0-6) % Baso % (Auto) (0-2) % Absolute Neuts (auto) (1.5-7.7) 10^3/ul Absolute Lymphs (auto) (1.0-4.8) 10^3/ul Absolute Monos (auto) (0-0.8) 10^3/ul Absolute Eos (auto) (0-0.6) 10^3/ul Absolute Basos (auto) (0-0.2) 10^3/ul Absolute Nucleated RBC 10^3/ul Nucleated RBC % INR (Anticoag Therapy) 1.09 H (0.77-1.02) APTT 43.2 H (26.0-36.3) seconds D-Dimer, Quantitative < 200 (Less Than 230) ng/mL Sodium (133-145) mmol/L Potassium (3.5-5.0) mmol/L Chloride (101-111) mmol/L Carbon Dioxide (22-32) mmol/L Anion Gap (2-11) mmol/L BUN (6-24) mg/dL Creatinine (0.51-0.95) mg/dL Est GFR ( Amer) (>60) Est GFR (Non-Af Amer) (>60) BUN/Creatinine Ratio (8-20) Glucose (70-100) mg/dL Lactic Acid 1.5 (0.5-2.0) mmol/L Calcium (8.6-10.3) mg/dL Magnesium (1.9-2.7) mg/dL Total Bilirubin (0.2-1.0) mg/dL AST (13-39) U/L ALT (7-52) U/L Alkaline Phosphatase (34-104) U/L Total Creatine Kinase (10-223) U/L CK-MB (CK-2) (0.6-6.3) ng/mL Troponin I (<0.04) ng/mL B-Natriuretic Peptide ( - 100) pg/mL Total Protein (6.4-8.9) g/dL Albumin (3.2-5.2) g/dL Globulin (2-4) g/dL Albumin/Globulin Ratio (1-3) TSH Thyroxine (T4) Result Diagrams: 03/17/17 08:30 03/17/17 08:30 Lab Statement: Any lab studies that have been ordered have been reviewed, and results considered in the medical decision making process. - Radiology CXR Xray Interpretation: No Acute Changes Radiology Interpretation Completed By: Radiologist - NO ACTIVE CARDIOPULMONARY DISEASE IS NOTED. - CT CTA Chest CT Interpretation: No Acute Changes CT Interpretation Completed By: Radiologist - No evidence of pulmonary embolus is noted. No evidence of aortic dissection. - EKG 07:54 EKG Rhythm: Atrial Fibrillation - 128 BPM EKG Interpretation: nml IVCT. Nml QTc. Nml axis. EKG Comparison: Other - Compared with 01/26/17 08:30 EKG Rhythm: Atrial Fibrillation EKG Interpretation: After Cardizem, A FIB 67 bpm. Nml IVCT. Nml QTc, Nml axis 13:06 EKG Rhythm: Sinus Rhythm - 65 BPM EKG Interpretation: Nml QTc, nml axis. EKG Comparison: No Significant Change - Compared to previous now in sinus rhythm. Re-Evaluation - Re-Evaluation First Eval Re-Evaluation Time: 12:23 Change: Improved - Pt has no present CP and is currently A-fib at 66 BPM. BP is 118/70. Consult with provider Dr. Nava. Dr. Fernandez accepts pt for admission. Chest Pain Course/Dx - Course Course Of Treatment: Pt was given cardizem 20mg IV x 1 and HR dropped from 140' s on adm to 50's (still afib). During ED course, HR climbed again to the 120's , cardizem drip ordered but HR decreased to 60's without cardizem drip. BP stable. Later in ED course without cardizem drip pt noted in SR and 3rd EKG confirms sinus rhythm. ED physician consulted with pt's classification counselor, Dr. Nava. Due to pt's very erratic HR and Pt's perfusion is better in sinus rhythm, pt is admitted for further evaluation and treatment. Dr. Fernandez accepts pt for admission. - Chest Pain Differential Diagnosis/HQI/PQRI: Acute ID, ACS, Aortic Aneurysm, Lower Respiratory Infection, Pulmonary Edema, Pulmonary Embolism - Diagnoses Provider Diagnoses: Atrial fibrillation with RVR - Provider Notifications Discussed Care Of Patient With: Yvan Nava - admit Time Discussed With Above Provider: 12:30 Instructed by Provider To: Admit As Observation - Critical Care Time Critical Care Time: 30-74 min - 30 minute Discharge - Discharge Plan Condition: Stable Disposition: ADMITTED TO [facility] The documentation as recorded by the Doug herman Stephanie accurately reflects the service I personally performed and the decisions made by , Neema Fitch MD.
[2017-03-17] MEDS: CMCS Dabigatran CAP(NF) 150 MG CAP PO SCH (19:39)
[2017-03-17] MEDS: Potassium Chlor TAB* 20 MEQ TAB.ER PO SCH (19:40)
[2017-03-17] MEDS: Metoprolol Tartrate TAB* 50 mg PO SCH (19:41)
[2017-03-17] MEDS ORDERED: Atorvastatin* 10 MG TAB PO SCH (21:00)
[2017-03-17] MEDS ORDERED: Metoprolol Tartrate TAB* 50 mg PO SCH (21:00)
--- NOTE | 2017-03-17 22:00 | HP ---
HISTORY AND PHYSICAL: DATE OF ADMISSION: 03/17/17 TIME OF EVALUATION: 1:30 p.m. PRIMARY CARE PROVIDER: Dr. Wiseman. DIGITAL ADVERTISING ANALYST: Dr. Nava. CHIEF COMPLAINT: Palpitations. HISTORY OF PRESENT ILLNESS: This is a 67-year-old female with history of proximal AFib status post cardioversion who presents after she woke from sleep at 3 o'clock this morning with palpitations. She was cardioverted in January and believes it was successful, although she has had occasional palpitations since then but none like this morning. She reports "my heart was beating out of my chest." The palpitations were associated with shortness of breath. In the emergency department, she was given 20 mg of Cardizem IV and her heart rate dropped to the 50s and she converted to normal sinus rhythm. She is now in normal sinus rhythm in the 60s and has no complaints. She reports adherence with all medications including metoprolol. She reports no recent illness. She did have diarrhea 2 days ago but was able to keep up with oral intake and was drinking lots of charissa vijay. She denies any other recent illness. She does not drink caffeine. She drinks wine occasionally but did not have any last night. She does not smoke and cannot think of any other inciting factors. PAST MEDICAL HISTORY: 1. Paroxysmal AFib. 2. Coronary artery disease. 3. Hypertension. 4. AAA. 5. Osteoarthritis. 6. COPD. PAST SURGICAL HISTORY: Left shoulder surgery. MEDICATIONS: 1. Aspirin 81 mg daily. 2. Folic acid/vitamin B6 daily. 3. Albuterol inhaler p.r.n. 4. Xanax 0.5 mg t.i.d. p.r.n. 5. Vitamin D 2000 units p.o. daily. 6. Pradaxa 150 mg daily. 7. HCTZ 25 mg daily. 8. Levothyroxine 75 mcg daily. 9. Metoprolol 50 mg b.i.d. 10. Omeprazole 20 mg daily. 11. KCl 20 mEq b.i.d. 12. Simvastatin 10 mg at bedtime. SOCIAL HISTORY: Her emergency contact is her daughter, Sanford, her phone number is [phone]. She is a former smoker, drinks occasional glass of wine and denies illicit drugs. REVIEW OF SYSTEMS: Negative for fever, chills, weight loss, weight gain, diaphoresis, headache, lightheadedness and positive for palpitations and shortness of breath. PHYSICAL EXAMINATION GENERAL: Alert, well-appearing female, in no distress. VITAL SIGNS: Heart rate 67 currently, oxygen saturation 99% on room air, respiratory rate 16, blood pressure 155/69. HEENT: Pupils are equal, round, and reactive to light. Moist mucosa. NECK: No JVP. No lymphadenopathy. LUNGS: Clear bilaterally. CHEST: Regular rate and rhythm. No murmurs. PMI is nondisplaced. ABDOMEN: Soft, nontender, nondistended. EXTREMITIES: Trace lower extremity edema. Strength 5+ throughout and sensation intact. LABORATORY DATA/DIAGNOSTIC STUDIES: Sodium 140, potassium 3.6, chloride 109, bicarb 25, BUN 14, creatinine 0.79. Troponin 0.00. TSH 1.15. White blood cells 5.4, hemoglobin 13.9. UA negative for nitrites and leukocyte esterase. EKG: There were several EKGs done. The most recent EKG after Cardizem was given is normal sinus rhythm with a normal axis, normal intervals, and no ST or T-wave changes. ASSESSMENT AND PLAN: This is a 67-year-old female with history of paroxysmal atrial fibrillation status post cardioversion presenting with atrial fibrillation with rapid ventricular response. 1. Atrial fibrillation with rapid ventricular response. No clear inciting factor. She appears euvolemic, has not been ill recently, and has no infectious symptoms. TSH is normal. She does not use caffeine and rarely uses alcohol. She did have diarrhea a few days ago, which may have precipitated this event; however, it does not seem likely. She is in normal sinus rhythm at this time. Cardiology has been contacted. I will follow up with them. I am continuing her on her home dose of metoprolol at this time. I am also continuing Pradaxa. Her most recent echocardiogram was in 2013 and showed a normal ejection fraction and no valvular disease. It may be reasonable to repeat the echocardiogram before she leaves. 2. Coronary artery disease. Continue aspirin, beta-jada, and statin. 3. Abdominal aortic aneurysm. She follows up with the specialist in [place] with Vascular Surgery. She reports that it is stable. 4. Disposition. Admit to observation with a cardiology consult. TIME SPENT: Greater than 60 minutes were spent on this H and P. [id number]/[facility] #: [id number] ROHIT
[2017-03-18] MEDS ORDERED: Levothyroxine TAB* 75 MCG TAB PO SCH (06:00)
[2017-03-18] MEDS: Potassium Chlor TAB* 20 MEQ TAB.ER PO SCH (08:32)
[2017-03-18] MEDS: Metoprolol Tartrate TAB* 50 mg PO SCH (08:33)
[2017-03-18] MEDS: CMCS Dabigatran CAP(NF) 150 MG CAP PO SCH (08:35)
[2017-03-18] MEDS ORDERED: Cholecalciferol TAB* 1000 UNITS PO SCH (09:00)
[2017-03-18] MEDS ORDERED: Aspirin EC Low Dose* 81 MG TAB.EC PO SCH (09:00)
[2017-03-18] MEDS ORDERED: Hydrochlorothiazide TAB* 25 MG PO SCH (09:00)
[2017-03-18] MEDS ORDERED: Acetaminophen TAB* 325 MG PO PRN (09:59)
--- NOTE | 2017-03-18 15:23 | PN ---
Subjective Date of Service: 03/18/17 Interval History: Patient seen and examined at bedside. Denies fever, chills, shortness of breath , chest discomfort, N/V/D. Tele: Sinus rhythm, rate 60-70's. Family History: Unchanged from Admission Social History: Unchanged from Admission Past Medical History: Unchanged from Admission Objective Active Medications: Acetaminophen (Tylenol Tab*) 650 mg PO Q4H PRN Reason: FEVER/PAIN Albuterol (Ventolin Hfa Inhaler*) 2 puff INH Q6H PRN Reason: SHORTNESS OF BREATH Alprazolam (Xanax Tab*) 0.5 mg PO TID PRN Reason: ANXIETY Aspirin (Aspirin Ec Low Dose*) 81 mg PO DAILY [facility] Atorvastatin Calcium (Lipitor*) 5 mg PO BEDTIME [facility] Cholecalciferol (Vitamin D Tab*) 2,000 units PO DAILY [facility] Dabigatran (Pradaxa Cap(Nf)) 150 mg PO BID [facility] Hydrochlorothiazide (Hydrodiuril Tab*) 25 mg PO DAILY [facility] Levothyroxine Sodium (Synthroid Tab*) 75 mcg PO DAILY@0600 [facility] Metoprolol Tartrate (Lopressor Tab*) 75 mg PO BID [facility] Omeprazole (Prilosec Cap*) 20 mg PO DAILY PRN Reason: HEARTBURN Potassium Chloride (Klor Con Er Tab*) 20 meq PO BID [facility] Vital Signs - 8 hr 03/18/17 03/18/17 03/18/17 07:43 08:00 08:33 Temperature 98.4 F Pulse Rate 64 Respiratory 20 20 20 Rate Blood Pressure 148/86 (mmHg) O2 Sat by Pulse 98 Oximetry Oxygen Devices in Use Now: None Appearance: NAD, sitting up in bed Ears/Nose/Mouth/Throat: Mucous Membranes Moist Respiratory: Symmetrical Chest Expansion and Respiratory Effort, Clear to Auscultation Cardiovascular: NL Sounds; No Murmurs; No JVD, RRR Abdominal: NL Sounds; No Tenderness; No Distention Extremities: No Edema Skin: No Rash or Ulcers Neurological: Alert and Oriented x 3, NL Muscle Strength and Tone Lines/Tubes/Other Access: Clean, Dry and Intact Peripheral IV - site benign Nutrition: Taking PO's Result Diagrams: 03/17/17 08:30 03/17/17 08:30 Additional Lab and Data: Assess/Plan/Problems-Billing Assessment: Ms. Low is a 67 yo female with PMH significant for P afib, CAD, HTN, AAA, and COPD who presented to the emergency room with complaints of palpitations. - Patient Problems (1) Rapid atrial fibrillation Priority: High Code(s): I48.91 - UNSPECIFIED ATRIAL FIBRILLATION SNOMED Code (s): 261472081 Comment: - Received cardizem in the ED - Has been in Sinus Rhythm since admission - Continue Metoprolol (increased dose) and Pradaxa (2) CAD (coronary artery disease) Code(s): I25.10 - ATHSCL HEART DISEASE OF [place] CORONARY ARTERY W/O ANG PCTRS SNOMED Code(s): 61960238 Comment: - Continue ASA, statin and metoprolol (3) Hyperlipidemia Code(s): E78.5 - HYPERLIPIDEMIA, UNSPECIFIED SNOMED Code(s): 58321397 Comment: - Continue simvastatin (4) Hypertension Code(s): I10 - ESSENTIAL (PRIMARY) HYPERTENSION SNOMED Code(s): 36194723 Comment: - Mostly normotensive - Continue HCTZ and metoprolol (5) AAA (abdominal aortic aneurysm) without rupture Code(s): I71.4 - ABDOMINAL AORTIC ANEURYSM, WITHOUT RUPTURE SNOMED Code(s): 30465973 Comment: - Stable per Pt - Continue to follow with Vascular surgery (6) DVT prophylaxis Code(s): TMN8571 - SNOMED Code(s): 741549702 Comment: - Continue Pradaxa (7) Full code status Code(s): Z78.9 - OTHER SPECIFIED HEALTH STATUS SNOMED Code(s): 471469736 Status and Disposition: OBV. Stable for discharge to home today.
[2017-03-18 16:18] VITALS: BP 144/72
--- NOTE | 2017-03-19 06:53 | DS ---
CC: Dr. Isidoro Wiseman * DISCHARGE SUMMARY: DATE OF ADMISSION: 03/17/17 DATE OF DISCHARGE: 03/18/17 ATTENDING PHYSICIAN: Dr. Hedy Forrest * (dictated by Aniya Garner NP) PRIMARY CARE PROVIDER: Dr. Isidoro Wiseman. PRIMARY DIAGNOSIS: Atrial fibrillation with rapid ventricular response. SECONDARY DIAGNOSES: 1. Paroxysmal atrial fibrillation. 2. Coronary artery disease. 3. Hypertension. 4. AAA. 5. Osteoarthritis. 6. COPD. STUDIES WHILE IN THE HOSPITAL: 1. Chest x-ray on 03/17/17, radiologist's impression: No active cardiopulmonary disease is noted. 2. Chest thoracic CTA on 03/17/17, radiologist's impression: No evidence for pulmonary embolus is noted. No evidence for aortic dissection. DISCHARGE MEDICATIONS: Changed home medication: metoprolol tartrate increased to 75 mg oral twice daily from 50 mg oral twice daily. Continued home medications: 1. Xanax 0.5 mg oral 3 times daily as needed for anxiety. 2. Omeprazole 20 mg oral daily as needed for heartburn. 3. Hydrochlorothiazide 25 mg oral daily. 4. Simvastatin 10 mg oral daily. 5. Dabigatran 150 mg oral twice daily. 6. Levothyroxine 75 mcg oral daily. 7. Albuterol HFA inhaler 2 puffs inhalation every 6 hours as needed for shortness of breath. 8. Aspirin 81 mg oral daily. 9. Folic acid. 10. Vitamin B6 1 tablet oral daily. 11. Vitamin D 2000 units oral daily. 12. Potassium chloride 20 mEq oral twice daily. 13. Aspirin 325 mg oral daily. HISTORY OF PRESENT ILLNESS: Ms. Low is a 67-year-old female with past medical history significant for paroxysmal atrial fibrillation, coronary artery disease, hypertension, and COPD who is status post cardioversion and woke up from her sleep at approximately 3 o'clock in the morning with palpitations. She reports being cardioverted in January and believes that it was successful, although she reported occasional palpitations since then, but nothing like the morning of her admission. Her palpitations were associated with shortness of breath. So, she presented to the emergency room. While in the emergency room, the patient received 20 mg of IV Cardizem and the rate dropped into the 50s and she converted into a normal sinus rhythm. The patient has since been in the normal sinus rhythm with no complaints. She reports being medically adherent to all of her medications including her metoprolol. Denied any recent illness though she had had diarrhea 2 days prior and had decreased, but was able to keep up with her oral intake. Due to the atrial fibrillation we were asked to evaluate the patient for admission. While in the hospital, the patient continued to remain in a normal sinus rhythm and was feeling well. She did have her metoprolol increased from 50 mg to 75 mg. The patient was feeling well and requesting to go home. Ms. Low is stable for discharge to home today. Vital signs are as follows: Temperature of 98.2, heart rate of 69, respiratory rate 20, O2 sat 100% on room air. Blood pressure 144/72. DISCHARGE PLAN: Ms. Low will be discharged home. Activity as tolerated. She will be on a heart healthy diet. As far as her atrial fibrillation, her metoprolol has been increased to 75 mg oral twice daily. She has been continued on her full dose baby aspirin and Pradaxa. I did confirm that she is on all three of these agents according to the cardiology office records. The patient has been resumed on all of her other usual medications. She has been asked to call Dr. Nava's office and Dr. Wiseman's office on Monday morning to set up followup appointments with both of them within the next 1 to 2 weeks. She has been asked to return to the emergency room for any chest pain or shortness of breath. Points to consider at discharge: It is to note, that according to the Cardiology's record the patient was prescribed metoprolol succinate 100 mg oral twice daily, but has been having metoprolol tartrate 50 mg oral twice daily just as I. The patient should be considered for a followup echocardiogram also as she has not recently had one in the office. This is a summarized report of a complex medical history and hospital stay. For further details, please see the entire medical record. TIME SPENT: Time for this discharge was approximately 50 minutes, greater than half of that was spent [id number] with the patient discussing discharge plans and instructions. CONDITION ON DISCHARGE: Stable. ANIYA GARNER, TEOFILO [id number]/[facility] #: [id number] ROHIT
== END 2017-03-18 16:41 | disposition home or self-care (01) ==
LOC: ED 07:51 → MEDTELE 13:37
PROVIDERS: ADMIT Internal Medicine; ATTEND Internal Medicine
DX: I48.0 Paroxysmal atrial fibrillation (principal); I25.10 Atherosclerotic heart disease of native coronary artery without angina pectoris; I10 Essential (primary) hypertension; I71.4 Abdominal aortic aneurysm, without rupture; J44.9 Chronic obstructive pulmonary disease, unspecified; R06.02 Shortness of breath; E78.5 Hyperlipidemia, unspecified; M19.90 Unspecified osteoarthritis, unspecified site; Z79.01 Long term (current) use of anticoagulants; Z79.899 Other long term (current) drug therapy; Z88.8 Allergy status to other drugs, medicaments and biological substances; Z87.891 Personal history of nicotine dependence
CPT/HCPCS: 36415; 71045; 71275; 80053; 81003; 81015; 82550; 82553; 83605; 83735; 83880; 84436; 84443; 84484; 85025; 85379; 85610; 85730; 93005; 96361; 96374; 99291; A9270-GY; G0378; Q9967

== ENCOUNTER 2017-03-29 07:08 | Emergency (ER) | payer MEDICARE ==
[2017-03-29] MEDS ORDERED: NS 0.9% 1000 ML* 1,000 ML IV ONE (07:12)
[2017-03-29 07:57] LABS: ABS Basophils 0.1 10^3/ul (0-0.2); ABS Eosinophils 0.2 10^3/ul (0-0.6); ABS Lymphocytes 1.4 10^3/ul (1.0-4.8); ABS Monocytes 0.5 10^3/ul (0-0.8); ABS Neutrophils 5.4 10^3/ul (1.5-7.7); ABS Nucleated RBC 0 10^3/ul; Eosinophil % 2.9 % (0-6); Hematocrit 42 % (35-47); Hemoglobin 14.5 g/dl (12.0-16.0); Lymphocyte % 18.4 % (25-47); Mean Corpuscular HGB Conc 35 g/dl (31-36); Mean Corpuscular Hemoglobin 29 pg (27-31); Mean Corpuscular Volume 83 fL (80-97); Mean Platelet Volume 9 um3 (7.4-10.4); Nucleated Red Blood Cells % 0; Platelet Count 173 10^3/ul (150-450); Red Blood Count 5.05 10^6/ul (4.0-5.4); Red Cell Distribution Width 14 % (10.5-15); White Blood Count 7.5 10^3/ul (3.5-10.8)
[2017-03-29 08:11] LABS: INR 1.01 (0.77-1.02)
[2017-03-29 08:13] LABS: EGFR Non-African American 61.9 (>60)
--- NOTE | 2017-03-29 08:19 | RAD ---
Indication: Palpitations. Comparison: March 17, 2017 CT. Technique: Upright AP 0727 hours Report: No focal pulmonary lesion, compelling alveolar consolidation, pleural effusion, pneumothorax. Negative for cardiomegaly. Unremarkable central pulmonary vasculature. Small to moderate retrocardiac hiatal hernia. Otherwise unremarkable mediastinal contours. IMPRESSION: No evidence for acute intrathoracic disease.
[2017-03-29] MEDS ORDERED: Potassium Chlor TAB* 20 MEQ TAB.ER PO ONE (11:44)
[2017-03-29 11:59] VITALS: BP 156/82
--- NOTE | 2017-03-29 18:06 | ED ---
Eric Luke Nilda, scribed for Thaddeus Clayton MD on 03/29/17 at 0724 . HPI Cardiac - HPI Summary HPI Summary: This patient is a 67 year old F presenting to [facility] with a chief complaint of a- fib (pounding, fluttering) at 0200 which woke her from sleep but is no longer present. The patient rates the pain 0/10 in severity. Symptoms aggravated by nothing and alleviated by spontaneous resolution. Patient reports diffuse chest pressure and SOB. She states this is her 3rd episode of A-fib this week. Pt states she was admitted 1.5 weeks ago for Afib. Pt notes she's "had her heart shocked twice." Medications include Pradaxa. Dr. Nava is her pre kindergarten teacher who had her wear heart monitor. - History of Current Complaint Chief Complaint: EDDysrhythmPalp Stated Complaint: A FIB Time Seen by Provider: 03/29/17 07:12 Hx Obtained From: Patient Onset/Duration: Started Hours Ago, Resolved Timing: Constant Current Severity: None Pain Intensity: 0 Pain Scale Used: 0-10 Numeric Chest Pain Location: Diffuse Chest Pain Radiates: No Character: Pressure/Squeezing Aggravating Factor(s): Nothing Alleviating Factor(s): Spontaneous Resolution Associated Signs and Symptoms: Positive: Other: - diffuse chest pressure and SOB - Additional Pertinent History Primary Care Physician: [id number] - Allergy/Home Medications Allergies/Adverse Reactions: Allergies Allergy/AdvReac Type Severity Reaction Status Date / Time Ezetimibe [From Vytorin] Allergy Intermediate Rash Verified 03/17/17 08:04 Simvastatin [From Vytorin] Allergy Intermediate Rash Verified 03/17/17 08:04 Codeine Allergy GI Upset Verified 03/17/17 08:04 Latex Allergy Rash Verified 03/17/17 08:04 PMH/Surg Hx/FS Hx/Imm Hx Endocrine/Hematology History: Reports: Hx Thyroid Disease - HYPO Denies: Hx Diabetes Cardiovascular History: Reports: Hx Aneurysm, Hx Angina, Hx Atrial Fibrillation , Hx Coronary Artery Disease - STENT/ANGIOPLASTY 2001, Hx Hypercholesterolemia, Hx Hypertension - ON MEDS, Other Cardiovascular Problems/Disorders - AAA Denies: Hx Pacemaker/ICD Respiratory History: Reports: Hx Asthma, Hx Chronic Obstructive Pulmonary Disease (COPD) GI History: Reports: Hx Gastroesophageal Reflux Disease, Hx Hiatal Hernia History: Denies: Hx Renal Disease Musculoskeletal History: Reports: Hx Arthritis Sensory History: Reports: Hx Contacts or Glasses Denies: Hx Hearing Aid Opthamlomology History: Reports: Hx Contacts or Glasses Neurological History: Reports: Hx Migraine Psychiatric History: Reports: Hx Anxiety, Hx Depression Denies: Hx Panic Disorder - Cancer History Hx Chemotherapy: No Hx Radiation Therapy: No - Surgical History Surgery Procedure, Year, and Place: BILATERAL CARPAL TUNNEL RELEASE. ROTOR CUFF REPAIR LEFT. RIGHT KNEE SCOPE. CARDIAC STENTS 2001(MULTI LINK [place]- CONDITIONAL 5 UP TO 3 T//330 G/CM) DR COTTER APPROVED HER FOR SCANNING ON 5 ONLY. Hx Anesthesia Reactions: No Infectious Disease History: No Infectious Disease History: Reports: Hx of Known/Suspected MRSA - under arm many years ago Denies: Traveled Outside the [place] in Last 30 Days - Family History Known Family History: Positive: Cardiac Disease - both parents, Hypertension - Social History Alcohol Use: Rare Alcohol Amount: wine Hx Substance Use: No Substance Use Type: Reports: None Hx Tobacco Use: Yes Smoking Status (MU): Former Smoker Review of Systems Positive: Chest Pain - pressure, Other - a-fib (pounding and fluttering, resolved) Positive: Shortness Of Breath All Other Systems Reviewed And Are Negative: Yes Physical Exam - Summary Physical Exam Summary: VITAL SIGNS: Reviewed. GENERAL: Patient is a well-developed and nourished female who is lying comfortable in the stretcher. Patient is not in any acute respiratory distress. HEAD AND FACE: No signs of trauma. No ecchymosis, hematomas or skull depressions. No sinus tenderness. EYES: PERRLA, EOMI x 2, No injected conjunctiva, no nystagmus. EARS: Hearing grossly intact. Ear canals and tympanic membranes are within normal limits. MOUTH: Oropharynx within normal limits. NECK: Supple, trachea is midline, no adenopathy, no JVD, no carotid bruit, no c- spine tenderness, neck with full ROM. CHEST: Symmetric, no tenderness at palpation LUNGS: Clear to auscultation bilaterally. No wheezing or crackles. CVS: Regular rate and rhythm, S1 and S2 present, no murmurs or gallops appreciated. ABDOMEN: Soft, non-tender. No signs of distention. No rebound no guarding, and no masses palpated. Bowel sounds are normal. EXTREMITIES: FROM in all major joints, no edema, no cyanosis or clubbing. NEURO: Alert and oriented x 3. No acute neurological deficits. Speech is normal and follows commands. SKIN: Dry and warm Triage Information Reviewed: Yes Vital Signs On Initial Exam: Initial Vitals Temp Pulse Resp BP Pulse Ox 97.9 F 81 16 150/97 98 03/29/17 07:09 03/29/17 07:09 03/29/17 07:09 03/29/17 07:09 03/29/17 07:09 Vital Signs Reviewed: Yes Diagnostics - Vital Signs Vital Signs Temp Pulse Resp BP Pulse Ox 03/29/17 07:09 97.9 F 81 16 150/97 98 - Laboratory Lab Results: Lab Results 03/29/17 03/29/17 03/29/17 Range/Units 07:46 07:46 07:46 WBC (3.5-10.8) 10^3/ul RBC (4.0-5.4) 10^6/ul Hgb (12.0-16.0) g/dl Hct (35-47) % MCV (80-97) fL MCH (27-31) pg MCHC (31-36) g/dl RDW (10.5-15) % Plt Count (150-450) 10^3/ul MPV (7.4-10.4) um3 Neut % (Auto) (38-83) % Lymph % (Auto) (25-47) % [place] % (Auto) (1-9) % Eos % (Auto) (0-6) % Baso % (Auto) (0-2) % Absolute Neuts (auto) (1.5-7.7) 10^3/ul Absolute Lymphs (auto) (1.0-4.8) 10^3/ul Absolute Monos (auto) (0-0.8) 10^3/ul Absolute Eos (auto) (0-0.6) 10^3/ul Absolute Basos (auto) (0-0.2) 10^3/ul Absolute Nucleated RBC 10^3/ul Nucleated RBC % INR (Anticoag Therapy) 1.01 (0.77-1.02) APTT 30.2 (26.0-36.3) seconds Sodium 137 (133-145) mmol/L Potassium TNP Chloride 102 (101-111) mmol/L Carbon Dioxide 29 (22-32) mmol/L Anion Gap 6 (2-11) mmol/L BUN 14 (6-24) mg/dL Creatinine 0.91 (0.51-0.95) mg/dL Est GFR ( Amer) 79.5 (>60) Est GFR (Non-Af Amer) 61.9 (>60) BUN/Creatinine Ratio 15.4 (8-20) Glucose 94 (70-100) mg/dL Lactic Acid (0.5-2.0) mmol/L Calcium 9.7 (8.6-10.3) mg/dL Magnesium 2.0 (1.9-2.7) mg/dL Total Bilirubin 0.80 (0.2-1.0) mg/dL AST TNP ALT 19 (7-52) U/L Alkaline Phosphatase 91 (34-104) U/L Total Creatine Kinase 66 (10-223) U/L CK-MB (CK-2) 0.9 (0.6-6.3) ng/mL Troponin I 0.00 (<0.04) ng/mL B-Natriuretic Peptide 53 ( - 100) pg/mL Total Protein 7.5 (6.4-8.9) g/dL Albumin 4.1 (3.2-5.2) g/dL Globulin 3.4 (2-4) g/dL Albumin/Globulin Ratio 1.2 (1-3) TSH 1.89 (0.34-5.60) mcIU/mL 03/29/17 03/29/17 03/29/17 Range/Units 07:46 07:46 09:59 WBC 7.5 (3.5-10.8) 10^3/ul RBC 5.05 (4.0-5.4) 10^6/ul Hgb 14.5 (12.0-16.0) g/dl Hct 42 (35-47) % MCV 83 (80-97) fL MCH 29 (27-31) pg MCHC 35 (31-36) g/dl RDW 14 (10.5-15) % Plt Count 173 (150-450) 10^3/ul MPV 9 (7.4-10.4) um3 Neut % (Auto) 71.9 (38-83) % Lymph % (Auto) 18.4 L (25-47) % [place] % (Auto) 6.1 (1-9) % Eos % (Auto) 2.9 (0-6) % Baso % (Auto) 0.7 (0-2) % Absolute Neuts (auto) 5.4 (1.5-7.7) 10^3/ul Absolute Lymphs (auto) 1.4 (1.0-4.8) 10^3/ul Absolute Monos (auto) 0.5 (0-0.8) 10^3/ul Absolute Eos (auto) 0.2 (0-0.6) 10^3/ul Absolute Basos (auto) 0.1 (0-0.2) 10^3/ul Absolute Nucleated RBC 0 10^3/ul Nucleated RBC % 0 INR (Anticoag Therapy) (0.77-1.02) APTT (26.0-36.3) seconds Sodium (133-145) mmol/L Potassium 3.5 Chloride (101-111) mmol/L Carbon Dioxide (22-32) mmol/L Anion Gap (2-11) mmol/L BUN (6-24) mg/dL Creatinine (0.51-0.95) mg/dL Est GFR ( Amer) (>60) Est GFR (Non-Af Amer) (>60) BUN/Creatinine Ratio (8-20) Glucose (70-100) mg/dL Lactic Acid 0.9 (0.5-2.0) mmol/L Calcium (8.6-10.3) mg/dL Magnesium (1.9-2.7) mg/dL Total Bilirubin (0.2-1.0) mg/dL AST 23 ALT (7-52) U/L Alkaline Phosphatase (34-104) U/L Total Creatine Kinase (10-223) U/L CK-MB (CK-2) (0.6-6.3) ng/mL Troponin I (<0.04) ng/mL B-Natriuretic Peptide ( - 100) pg/mL Total Protein (6.4-8.9) g/dL Albumin (3.2-5.2) g/dL Globulin (2-4) g/dL Albumin/Globulin Ratio (1-3) TSH (0.34-5.60) mcIU/mL Result Diagrams: 03/29/17 07:46 03/29/17 09:59 Lab Statement: Any lab studies that have been ordered have been reviewed, and results considered in the medical decision making process. - Radiology CXR Radiology Interpretation Completed By: Radiologist - CXR, per radiologist, reveals no evidence for acute intrathoracic disease. Dr. Clayton has reviewed this radiology report. - EKG 719 Cardiac Rate: NL EKG Rhythm: Sinus Rhythm - 72 bpm Ectopy: PVCs EKG Interpretation: Q-wave in 3, no ST elevation Re-Evaluation - Re-Evaluation First Eval Re-Evaluation Time: 09:50 Change: Improved Comment: Pt is feeling better. No palpitations or CP. Disposition - Course Assessment/Plan: This patient is a 67 year old F presenting to [facility] with a chief complaint of a-fib (pounding, fluttering) at 0200 which woke her from sleep but is no longer present. The patient rates the pain 0/10 in severity. Symptoms aggravated by nothing and alleviated by spontaneous resolution. Patient reports diffuse chest pressure and SOB. She states this is her 3rd episode of A-fib this week. Pt states she was admitted 1.5 weeks ago for Afib. Pt notes she's "had her heart shocked twice." Medications include Pradaxa. Dr. Nava is her pre kindergarten teacher who had her wear heart monitor. Pending labs, EKG , and CXR. An EKG reveals NSR, 72 bpm, no ST elevation, PVCs, Qwave in 3. CXR, per radiologist, reveals no evidence for acute intrathoracic disease. Dr. Clayton has reviewed this radiology report. Pt is feeling better with no palpitations or CP. Discussed cased with Dr. Nava who is pts pre kindergarten teacher. He recommended pt be D/C home with increase on Metoprolol 1200 BID. He will also see pt in 1 week. I discussed plan with pt and she agrees. At this point, pt is asymptomatic and hemodynamically stable. Dx paroxysmal A-fib. - Differential Dx - Cardiopulmonary Differential Diagnoses - Cardiopulmonary: Atrial Fibrillation, Atrial Flutter, CHF, Paroxysmal SVT, Paroxysmal VT - Diagnoses Provider Diagnoses: Paroxysmal A-fib - Physician Notifications Discussed Care Of Patient With: Yvan Nava - Associate Director Finance Time Discussed With Above Provider: 09:10 Instructed by Provider To: Other - recommended pt be D/C home with increase on Metoprolol 1200 BID. He will also see pt in 1 week. Discharge - Discharge Plan Condition: Stable Disposition: HOME Patient Education Materials: A-fib (Atrial Fibrillation) (ED) Referrals: Yvan Nava MD [Medical Doctor] - 1 Week Additional Instructions: RETURN TO THE EMERGENCY DEPARTMENT FOR CHANGING OR WORSENING SYMPTOMS. The documentation as recorded by the Eric herman Nilda accurately reflects the service I personally performed and the decisions made by Forrest medeiros Walter, MD.
== END 2017-03-29 12:01 | disposition home or self-care (01) ==
LOC: ED 07:08
DX: I48.0 Paroxysmal atrial fibrillation (principal); Z87.891 Personal history of nicotine dependence
CPT/HCPCS: 36415; 71045; 80053; 82550; 82553; 83605; 83735; 83880; 84443; 84484; 85025; 85610; 85730; 93005; 96360; 96361; 99282; A9270-GY

== ENCOUNTER 2017-04-02 06:14 | Emergency (ER) | payer MEDICARE ==
--- OUTSIDE RECORDS SUMMARY | 2017-04-02 07:03 | XMS REPORT ---
:1950 External Reference #:[id number] Author Organization [facility] Address [address] [address] Phone [phone] Care Team Providers Name Role Phone Isidoro Wiseman MD Primary Care Physician Unavailable Payers Type Date Identification Numbers Payment Provider Subscriber Commercial Policy Number: [id number] [employer]g/Todays Options Estefany Low PayID: [id number] [address] [address] Attn: [place] [address] Medigap Part B Expires: 2014 Policy Number: [id number] Medicare Estefany Low PayID: [id number] [address] [place] [address] Problems Date Description Provider Status Onset: 12/10/2010 Benign essential hypertension Miriam Calzada M.D. Onset: 12/31/2010 Electrocardiogram abnormal Miriam Calzada M.D. Onset: 12/31/2010 Coronary arteriosclerosis Miriam Calzada M.D. Onset: 12/31/2010 Hyperlipidemia Miriam Calzada M.D. Onset: 12/12/2012 Dyspnea Miriam Calzada M.D. Onset: 01/01/2013 Patient post percutaneous Miriam Calzada transluminal coronary angioplasty Mariana.Mick Onset: 11/21/2013 Atrial fibrillation Miriam Calzada M.D. Onset: 11/21/2013 Coronary arteriosclerosis Miriam Calzada M.D. Onset: 11/21/2013 Essential hypertension Miriam Calzada M.D. Onset: 01/27/2014 Rheumatoid arthritis Miguel Vargas M.D. Active Onset: 05/23/2014 Taking medication Dennis Jade M.D. Active Onset: 05/23/2014 Chronic pain syndrome Dennis Jade M.D. Active Onset: 05/23/2014 Degenerative joint disease Dennis Jade M.D. Active involving multiple joints Onset: 02/12/2015 Disturbance in sleep behavior Maddy Rosales MD Active Onset: 02/12/2015 Gastroesophageal reflux disease Maddy Rosales MD Active Onset: 02/12/2015 Obesity Maddy Rosales MD Active Onset: 03/23/2015 Difficulty breathing Maddy Rosales MD Active Family History Date Family Member(s) Problem(s) Comments General MGM heart disease Father Etoh : (age Father due to [place] 64 Years) Mother Heart disease ; at age 82 - Alzheimer's Siblings Brother of heart attack in 2003 Siblings 8 : (age Second Brother due to [place] 42 Years) Maternal Grandmother due to Unknown () - hx of Causes aortic valve replacement Social History Type Date Description Comments Marital Status Lives With Family Occupation Retired Cigarette Use Former Cigarette Smoker ETOH Use Denies alcohol use Smoking Patient is a former smoker Recreational Drug Use Denies Drug Use Daily Caffeine Comsumes on average 1 cup of decaff 1/2 cup in AM coffee per day Exercise Type/Frequency Exercises rarely Allergies, Adverse Reactions, Alerts Date Description Reaction Status Severity Comments 10/30/2008 Codeine Phosphate active upset stomach 10/30/2008 Vytorin active severe joint pain 07/07/2009 Statins muscle pain active 02/12/2015 Latex active Medications Medication Date Status Form Strength Qnty SIG Indications Ordering Provider Multaq 03/31 Active Tablets 400mg 180ta 1 by mouth I48.0 bs twice a S. day Valente Nava Vitamin D 02/11 Active Tablets 2000Unit by mouth everyday Folplex 2.2 02/11 Active Tablets 2.2-25-0. 1 tablet 5mg daily Aspirin Ec 11/18 Active Tablets 81mg 30tab [address] ferguson every day Buck Nava M.D. Simvastatin 11/21 Active Tablets 10mg 1 by mouth tayb every S. night at [facility] bedtime Valente Klor-Con M20 11/13 Active Tablets 20Meq 1 by mouth ta ER twice S. daily Valente Nava Hydrochlorothiazide 10/30 Active Tablets 25mg 30tab 1 po qd ta s SCesar Nava M.D. Metoprolol 10/30 Active Tablets 50mg one tabs ta ER 24HR twice a S. day (pt [facility] home list Valente states she is taking tartrate) Omeprazole Active Capsules 20mg 30cap 1 po qd Unknown /0000 DR s prn Levothyroxine Active Tablets 75mcg 30tab 1 po qd Unknown Sodium 0000 s Xanax Active Tablets 0.50mg 30tab prn Unknown /0000 s Pradaxa Active Capsules 150mg 180ca by mouth Unknown /0000 ps twice a day Aspirin Ec Active Tablets 325mg take 1 tab Unknown /0000 DR by mouth every day Methotrexate 03/24 Hx Tablets 2.5mg 40tab 8 by mouth 714.0 s on fridays Lalitha Vargas M.DCesar 05/23 Prednisone 03/24 Hx Tablets 5mg 45tab 1 and one 714.0 s half (7.5 Vargas, - mg) q am M.D. 05/23 for weeks ; then follow taper schedule given in office (Pt reports she is taking 2.5 mg day) Prednisone (Pato) 12/16 Hx Tablets 5mg 45tab 2.5 mg qod 714.0 s Lalitha Vargas M.D. 03/18 Methotrexate 11/13 Hx Tablets 2.5mg 30tab currently 714.0 s on 6 tabs Vargas, - every week M.D. 03/24 Prednisone 11/13 Hx Tablets 10mg 30tab daily 714.0 s Lalitha Vargas M.D. 12/16 Folic Acid 11/13 Hx Tablets 1mg 30tab 1 by mouth 714.0 s every day Lalitha Jade M.D. 05/23 Simvastatin 06/16 Hx Tablets 20mg 30tab 1 po qd Qutayb s S. - Maghaydah 11/21 , M.DCesar /2013 Norvasc 01/08 Hx Tablets 5mg 60tab 2 po qd Qutayb s S. - Maghayd[place] 11/13 , M.D. /2013 Simvastatin 08/28 Hx Tablets 10mg 30tab 1 po qhs Qutayb s S. - [place] 06/16 , M.D. /2010 Lipitor 08/27 Hx Tablets 10mg 30tab 1 po qhs Qutayb s S. - [place] 08/28 , M.DCesar /2009 Asa 10/30 Hx 325mg 90uni 1 po qd [facility] /2014 Lisinopril 10/30 Hx Tablets 5mg 30tab 1 po qd Qutayb s S. - [place] 05/14 , M.D. /2009 Klor-Con 10 10/30 Hx Tablets 10Meq 30tab 1 po qd Qutayb ER s S. - [place] 11/13 , M.D. /2013 Crestor 10/30 Hx Tablets 10mg 30tab 1 po qd Qutaybeh s S. - Maghaydah 05/28 , M.D. /2009 Combgen 10/30 Hx Tablets 2.2-25-0. one po qd Qutaybeh 5mg S. - Maghayd[place] 05/14 , M.D. /2009 Folplex Hx Tablets 2.2 90tab 1 po qd Unknown /0000 s - 08/15 Albuterol Inhaler Hx 1unit 2 puffs up Unknown /0000 s to qid prn - 02/06 Hydrocodone/Acetami Hx Tablets 5-500mg 20tab 1 tid prn Unknown nophen /0000 s - 08/04 Gabapentin 0000 Hx Capsules 100mg 90cap 1 po tid Unknown /0000 s prn - 11/21 Meloxicam 0000 Hx Tablets 7.5mg 30tab 1 by mouth Unknown /0000 s every day - 11/21 Folplex 2.2 00 Hx Tablets 2.2-25-0. Unknown /0000 5mg - 11/21 Prednisone 00 Hx Tablets 10mg 1 by mouth 714.0 Unknown /0000 every day - 03/24 Vitamin D2 00 Hx 2000Iu daily Unknown /0000 - 07/25 Xopenex HFA 00 Hx 2 puffs Unknown /0000 twice a - day prn 02/06 Immunizations CPT Code Status Date Vaccine Lot # [id number] Given 02/03/2015 Fluvirin Im 3Yrs And Older Vital Signs Date Vital Result Comment 03/31/2017 Height 64 inches 5'4" 78 Weight 180.75 lb w/o shoes Heart Rate 70 /min BP Systolic Sitting 120 mmHg LA lg cuff BP Diastolic Sitting 88 mmHg LA lg cuff BMI (Body Mass Index) 31.0 kg/m2 Ejection Fraction 55-60% Echo 10/31/14 02/07/2017 Height 64 inches 5'4" 78 Weight 178.38 lb with shoes Heart Rate 64 /min BP Systolic Sitting 146 mmHg LA reg cuff BP Diastolic Sitting 96 mmHg LA reg cuff BMI (Body Mass Index) 30.6 kg/m2 01/24/2017 Height 64 inches 5'4" 78 Weight 177.00 lb without shoes Heart Rate 68 /min BP Systolic Sitting 125 mmHg LA reg cuff BP Diastolic Sitting 78 mmHg LA reg cuff BMI (Body Mass Index) 30.4 kg/m2 Ejection Fraction 55%-60% 10/31/14 echo 04/12/2016 Height 64 inches 5'4" 78 Weight 185.50 lb with shoes Heart Rate 66 /min BP Systolic Sitting 138 mmHg LA lrg cuff BP Diastolic Sitting 82 mmHg LA lrg cuff BMI (Body Mass Index) 31.8 kg/m2 Ejection Fraction 55% - 60% echo 10/31/14 05/22/2015 Height 64 inches 5'4" 78 Weight 179.00 lb w/o shoes Heart Rate 68 /min reg BP Systolic Sitting 126 mmHg Lue, lg cuff BP Diastolic Sitting 96 mmHg Lue, lg cuff BP Systolic Standing 134 mmHg Lue BP Diastolic Standing 96 mmHg Lue Respiratory Rate 16 /min BMI (Body Mass Index) 30.7 kg/m2 Ejection Fraction 55-60% As of 10/31/14 echo 03/23/2015 Height 64 inches 5'4" 78 Weight 177.00 lb Heart Rate 77 /min BP Systolic Sitting 136 mmHg BP Diastolic Sitting 78 mmHg Respiratory Rate 18 /min O2 % BldC Oximetry 97 % BMI (Body Mass Index) 30.4 kg/m2 02/12/2015 Height 62 inches 5'2" Weight 179.25 lb Heart Rate 61 /min BP Systolic Sitting 134 mmHg BP Diastolic Sitting 74 mmHg Respiratory Rate 18 /min O2 % BldC Oximetry 97 % BMI (Body Mass Index) 32.8 kg/m2 Neck Circumference in inches 14.5 11/18/2014 Height 62 inches 5'2" Weight 180.00 lb w/shoes Heart Rate 70 /min BP Systolic Sitting 138 mmHg LA reg cuff BP Diastolic Sitting 84 mmHg LA reg cuff BMI (Body Mass Index) 32.9 kg/m2 Ejection Fraction 50-55 echo 10/31/14 10/22/2014 Height 62 inches 5'2" Weight 177.00 lb Heart Rate 64 /min BP Systolic 134 mmHg LA large BP Diastolic 82 mmHg LA large BMI (Body Mass Index) 32.4 kg/m2 Ejection Fraction 55-60% 10/31/13 Nathan 08/15/2014 Height 62 inches 5'2" Weight 180.00 lb Heart Rate 60 /min BP Systolic Sitting 130 mmHg BP Diastolic Sitting 80 mmHg Pain Level 7 BMI (Body Mass Index) 32.9 kg/m2 05/23/2014 Height 62 inches 5'2" Weight 182.00 lb Heart Rate 60 /min irreg BP Systolic Sitting 136 mmHg BP Diastolic Sitting 80 mmHg Pain Level 6 BMI (Body Mass Index) 33.3 kg/m2 03/24/2014 Height 62 inches 5'2" Weight 181.00 lb Heart Rate 70 /min irreg BP Systolic Sitting 122 mmHg BP Diastolic Sitting 82 mmHg Pain Level 1 BMI (Body Mass Index) 33.1 kg/m2 02/20/2014 Height 62 inches 5'2" Weight 176.00 lb Heart Rate 78 /min BP Systolic 134 mmHg LA reg BP Diastolic 90 mmHg LA reg BMI (Body Mass Index) 32.2 kg/m2 01/27/2014 Height 62 inches 5'2" Weight 180.25 lb Heart Rate 66 /min BP Systolic Sitting 156 mmHg BP Diastolic Sitting 82 mmHg Pain Level 0 BMI (Body Mass Index) 33.0 kg/m2 12/16/2013 Height 62 inches 5'2" Weight 180.00 lb Heart Rate 68 /min BP Systolic Sitting 142 mmHg BP Diastolic Sitting 70 mmHg Pain Level 6 BMI (Body Mass Index) 32.9 kg/m2 11/21/2013 Height 62 inches 5'2" Weight 177.50 lb Heart Rate 58 /min BP Systolic Sitting 160 mmHg BP Diastolic Sitting 98 mmHg Respiratory Rate 14 /min BMI (Body Mass Index) 32.5 kg/m2 11/13/2013 Weight 177.50 lb Heart Rate 60 /min BP Systolic Sitting 120 mmHg BP Diastolic Sitting 80 mmHg Pain Level 8 10/30/2013 Height 62 inches 5'2" Weight 176.50 lb Heart Rate 70 /min BP Systolic Sitting 108 mmHg BP Diastolic Sitting 60 mmHg Pain Level 6 BMI (Body Mass Index) 32.3 kg/m2 07/17/2013 Height 62 inches 5'2" Weight 181.00 lb Heart Rate 64 /min BP Systolic Sitting 110 mmHg left, reg cuff BP Diastolic Sitting 68 mmHg left, reg cuff BMI (Body Mass Index) 33.1 kg/m2 01/01/2013 Height 62 inches 5'2" Weight 176.00 lb Heart Rate 68 /min BP Systolic Sitting 118 mmHg BP Diastolic Sitting 76 mmHg Respiratory Rate 16 /min BMI (Body Mass Index) 32.2 kg/m2 12/12/2012 Height 62 inches 5'2" Weight 174.75 lb Heart Rate 56 /min Regular BP Systolic Sitting 122 mmHg BP Diastolic Sitting 74 mmHg BMI (Body Mass Index) 32.0 kg/m2 04/13/2012 Height 62 inches 5'2" Weight 168.00 lb Heart Rate 68 /min BP Systolic Sitting 132 mmHg BP Diastolic Sitting 80 mmHg Respiratory Rate 16 /min BMI (Body Mass Index) 30.7 kg/m2 08/05/2011 Height 62 inches 5'2" Weight 180.00 lb Heart Rate 53 /min BP Systolic 130 mmHg BP Diastolic 86 mmHg BMI (Body Mass Index) 32.9 kg/m2 12/31/2010 Height 62 inches 5'2" Weight 184.00 lb Heart Rate 56 /min BP Systolic Sitting 134 mmHg L BP Diastolic Sitting 88 mmHg L O2 % BldC Oximetry 97 % BMI (Body Mass Index) 33.7 kg/m2 06/16/2010 Height 62 inches 5'2" Weight 184.00 lb Heart Rate 57 /min BP Systolic 120 mmHg BP Diastolic 80 mmHg Respiratory Rate 18 /min BMI (Body Mass Index) 33.7 kg/m2 01/08/2010 Height 62 inches 5'2" Weight 179.00 lb Heart Rate 59 /min BP Systolic Sitting 140 mmHg BP Diastolic Sitting 90 mmHg BMI (Body Mass Index) 32.7 kg/m2 05/14/2009 Weight 182.00 lb Heart Rate 60 /min BP Systolic Sitting 120 mmHg BP Diastolic Sitting 82 mmHg Respiratory Rate 16 /min 10/30/2008 Height 61 inches 5'1" Weight 177.00 lb Heart Rate 69 /min BP Systolic Sitting 120 mmHg L BP Diastolic Sitting 90 mmHg L BMI (Body Mass Index) 33.4 kg/m2 Results Test Date Test Result H/L Range Note Laboratory test finding 03/17/2017 Thyroxine 8.81 g/mL 6.09-12.23 TSH (Thyroid Stim Horm) 1.15 mcIU/mL 0.34-5.60 CKMB 03/17/2017 CKMB ng/mL 1.4 ng/mL 0.6-6.3 Laboratory test finding 03/17/2017 Magnesium 1.9 mg/dL 1.9-2.7 Creatine Kinase(CK) 74 U/L 10-223 Troponin-I (TnI) 0.00 ng/mL <0.04 Comp Metabolic Panel 03/17/2017 Sodium 140 mmol/L 133-145 Potassium 3.6 mmol/L 3.5-5.0 Chloride 109 mmol/L 101-111 Co2 Carbon Dioxide 25 mmol/L 22-32 Anion Gap 6 mmol/L 2-11 Glucose 93 mg/dL 70-100 Blood Urea Nitrogen 14 mg/dL 6-24 Creatinine 0.79 mg/dL 0.51-0.95 BUN/Creatinine Ratio 17.7 8-20 Calcium 9.2 mg/dL 8.6-10.3 Total Protein 6.7 g/dL 6.4-8.9 Albumin 3.7 g/dL 3.2-5.2 Globulin 3.0 g/dL 2-4 Albumin/Globulin Ratio 1.2 1-3 Total Bilirubin 0.60 mg/dL 0.2-1.0 Alkaline Phosphatase 79 U/L 34-104 Alt 18 U/L 7-52 Ast 22 U/L 13-39 Egfr Non- 72.8 >60 Egfr 93.6 >60 1 Laboratory test finding 03/17/2017 Partial Thrombo Time 43.2 seconds High 26.0-36.3 PTT D Dimer Quantitative < 200 ng/mL Less Than 230 2 Lactic Acid 1.5 mmol/L 0.5-2.0 3 B-Type Natriuretic Peptide BNP 106 pg/mL High 4 Inr/Protime 03/17/2017 Inr 1.09 High 0.77-1.02 CBC Auto Diff 03/17/2017 White Blood Count 5.4 10^3/uL 3.5-10.8 Red Blood Count 4.89 10^6/uL 4.0-5.4 Hemoglobin 13.9 g/dL 12.0-16.0 Hematocrit 41 % 35-47 Mean Corpuscular Volume 84 fL 80-97 Mean Corpuscular Hemoglobin 29 pg 27-31 Mean Corpuscular HGB Conc 34 g/dL 31-36 Red Cell Distribution Width 14 % 10.5-15 Platelet Count 169 10^3/uL 150-450 Mean Platelet Volume 9 um3 7.4-10.4 Abs Neutrophils 3.1 10^3/uL 1.5-7.7 Abs Lymphocytes 1.5 10^3/uL 1.0-4.8 Abs Monocytes 0.6 10^3/uL 0-0.8 Abs Eosinophils 0.2 10^3/uL 0-0.6 Abs Basophils 0 10^3/uL 0-0.2 Abs Nucleated RBC 0 10^3/uL Granulocyte % 57.1 % 38-83 Lymphocyte % 28.0 % 25-47 Monocyte % 10.2 % High 1-9 Eosinophil % 4.2 % 0-6 Basophil % 0.5 % 0-2 Nucleated Red Blood Cells % 0 Urinalysis Profile 03/17/2017 Urine Color Straw Urine Appearance Clear Urine Specific Antoine 1.006 Low 1.010-1.030 Urine pH 7.0 5-9 Urine Urobilinogen Negative Negative Urine Ketones Negative Negative Urine Protein Negative Negative Urine Leukocytes Negative Negative Urine Blood 1+ Negative Urine Nitrite Negative Negative Urine Bilirubin Negative Negative Urine Glucose Negative Negative Urine White Blood Cell Absent Absent Urine Red Blood Cell Trace(0-2/hpf) Absent Urine Bacteria Absent Absent Urine Squamous Epithelial Cell Present Absent Laboratory test finding 03/17/2017 Troponin-I (TnI) 0.00 ng/mL <0.04 Laboratory test finding 03/17/2017 Troponin-I (TnI) 0.00 ng/mL <0.04 CBC Auto Diff 08/12/2014 White Blood Count 5.5 10^3/uL 4.8-10.8 Red Blood Count 4.94 10^6/uL 4.0-5.4 Hemoglobin 13.6 g/dL 12.0-16.0 Hematocrit 41 % 35-47 Mean Corpuscular Volume 83 fL 80-97 Mean Corpuscular Hemoglobin 28 pg 27-31 Mean Corpuscular HGB Conc 33 g/dL 31-36 Red Cell Distribution Width 14 % 10.5-15 Platelet Count 176 10^3/uL 150-450 Mean Platelet Volume 9 um3 7.4-10.4 Abs Neutrophils 3.2 10^3/uL 1.5-7.7 Abs Lymphocytes 1.6 10^3/uL 1.0-4.8 Abs Monocytes 0.5 10^3/uL 0-0.8 Abs Eosinophils 0.2 10^3/uL 0-0.6 Abs Basophils 0.1 10^3/uL 0-0.2 Abs Nucleated RBC 0.01 10^3/uL Granulocyte % 57.7 % 38-83 Lymphocyte % 28.7 % 25-47 Monocyte % 8.8 % 1-9 Eosinophil % 3.8 % 0-6 Basophil % 1.0 % 0-2 Nucleated Red Blood Cells % 0.1 Comp Metabolic Panel 08/12/2014 Sodium 138 mmol/L 133-145 Potassium 3.9 mmol/L 3.5-5.0 Chloride 104 mmol/L 101-111 Co2 Carbon Dioxide 29 mmol/L 22-32 Anion Gap 5 mmol/L 2-11 Glucose 93 mg/dL 70-100 Blood Urea Nitrogen 16 mg/dL 6-24 Creatinine 0.89 mg/dL 0.51-0.95 BUN/Creatinine Ratio 18.0 8-20 Calcium 9.4 mg/dL 8.6-10.3 Total Protein 6.6 g/dL 6.4-8.9 Albumin 4.0 g/dL 3.2-5.2 Globulin 2.6 g/dL 2-4 Albumin/Globulin Ratio 1.5 1-3 Total Bilirubin 0.80 mg/dL 0.2-1.0 Alkaline Phosphatase 83 U/L 34-104 Alt 18 U/L 7-52 Ast 23 U/L 13-39 Egfr Non- 64.1 >60 Egfr 82.4 >60 5 Laboratory test finding 08/12/2014 Erythrocyte Sed Rate 20 mm/Hr 0-30 C Reactive Protein 1.13 mg/L < 5.00 6 Rheumatoid Factor <15 IU/mL <15 7 Cyclic Citrullinated Pep Igg 17.8 U 8 CBC Auto Diff 05/19/2014 White Blood Count 6.2 10^3/uL 4.8-10.8 Red Blood Count 4.48 10^6/uL 4.0-5.4 Hemoglobin 13.2 g/dL 12.0-16.0 Hematocrit 40 % 35-47 Mean Corpuscular Volume 88 fL 80-97 Mean Corpuscular Hemoglobin 30 pg 27-31 Mean Corpuscular HGB Conc 33 g/dL 31-36 Red Cell Distribution Width 16 % High 10.5-15 Platelet Count 170 10^3/uL 150-450 Mean Platelet Volume 9 um3 7.4-10.4 Abs Neutrophils 4.2 10^3/uL 1.5-7.7 Abs Lymphocytes 1.3 10^3/uL 1.0-4.8 Abs Monocytes 0.4 10^3/uL 0-0.8 Abs Eosinophils 0.2 10^3/uL 0-0.6 Abs Basophils 0.1 10^3/uL 0-0.2 Abs Nucleated RBC 0 10^3/uL Granulocyte % 67.5 % 38-83 Lymphocyte % 21.4 % Low 25-47 Monocyte % 6.7 % 1-9 Eosinophil % 3.5 % 0-6 Basophil % 0.9 % 0-2 Nucleated Red Blood Cells % 0 Comp Metabolic Panel 05/19/2014 Sodium 137 mmol/L 133-145 Potassium 3.2 mmol/L Low 3.5-5.0 Chloride 100 mmol/L Low 101-111 Co2 Carbon Dioxide 30 mmol/L 22-32 Anion Gap 7 mmol/L 2-11 Glucose 96 mg/dL 70-100 Blood Urea Nitrogen 17 mg/dL 6-24 Creatinine 0.90 mg/dL 0.51-0.95 BUN/Creatinine Ratio 18.9 8-20 Calcium 9.6 mg/dL 8.6-10.3 Total Protein 6.7 g/dL 6.4-8.9 Albumin 4.1 g/dL 3.2-5.2 Globulin 2.6 g/dL 2-4 Albumin/Globulin Ratio 1.6 1-3 Total Bilirubin 0.80 mg/dL 0.2-1.0 Alkaline Phosphatase 66 U/L 34-104 Alt 23 U/L 7-52 Ast 25 U/L 13-39 Egfr Non- 63.2 >60 Egfr 81.3 >60 9 Laboratory test finding 05/19/2014 Erythrocyte Sed Rate 10 mm/Hr 0-30 C Reactive Protein 1.40 mg/L < 5.00 10 CBC Auto Diff 01/27/2014 White Blood Count 7.1 10^3/uL 4.8-10.8 Red Blood Count 4.34 10^6/uL 4.0-5.4 Hemoglobin 12.6 g/dL 12.0-16.0 Hematocrit 38 % 35-47 Mean Corpuscular Volume 88 fL 80-97 Mean Corpuscular Hemoglobin 29 pg 27-31 Mean Corpuscular HGB Conc 33 g/dL 31-36 Red Cell Distribution Width 16 % High 10.5-15 Platelet Count 193 10^3/uL 150-450 Mean Platelet Volume 9 um3 7.4-10.4 Abs Neutrophils 4.3 10^3/uL 1.5-7.7 Abs Lymphocytes 2.1 10^3/uL 1.0-4.8 Abs Monocytes 0.5 10^3/uL 0-0.8 Abs Eosinophils 0.2 10^3/uL 0-0.6 Abs Basophils 0.1 10^3/uL 0-0.2 Abs Nucleated RBC 0.01 10^3/uL Granulocyte % 60.2 % 38-83 Lymphocyte % 29.0 % 25-47 Monocyte % 7.1 % 1-9 Eosinophil % 2.8 % 0-6 Basophil % 0.9 % 0-2 Nucleated Red Blood Cells % 0.1 Comp Metabolic Panel 01/27/2014 Sodium 141 mmol/L 133-145 Potassium 3.3 mmol/L Low 3.5-5.0 11 Chloride 104 mmol/L 101-111 Co2 Carbon Dioxide 31 mmol/L 22-32 Anion Gap 6 mmol/L 2-11 Glucose 83 mg/dL 70-100 Blood Urea Nitrogen 17 mg/dL 6-24 Creatinine 0.87 mg/dL 0.51-0.95 BUN/Creatinine Ratio 19.5 8-20 Calcium 9.5 mg/dL 8.6-10.3 Total Protein 6.3 g/dL Low 6.4-8.9 Albumin 4.0 g/dL 3.2-5.2 Globulin 2.3 g/dL 2-4 Albumin/Globulin Ratio 1.7 1-3 Total Bilirubin 0.60 mg/dL 0.2-1.0 Alkaline Phosphatase 61 U/L 34-104 Alt 21 U/L 7-52 Ast 21 U/L 13-39 Egfr Non- 66.0 >60 Egfr 84.8 >60 12 CBC Auto Diff 12/16/2013 White Blood Count 8.2 10^3/uL 4.8-10.8 Red Blood Count 4.34 10^6/uL 4.0-5.4 Hemoglobin 12.6 g/dL 12.0-16.0 Hematocrit 37 % 35-47 Mean Corpuscular Volume 86 fL 80-97 Mean Corpuscular Hemoglobin 29 pg 27-31 Mean Corpuscular HGB Conc 34 g/dL 31-36 Red Cell Distribution Width 15 % 10.5-15 Platelet Count 193 10^3/uL 150-450 Mean Platelet Volume 9 um3 7.4-10.4 Abs Neutrophils 6.5 10^3/uL 1.5-7.7 Abs Lymphocytes 1.4 10^3/uL 1.0-4.8 Abs Monocytes 0.3 10^3/uL 0-0.8 Abs Eosinophils 0 10^3/uL 0-0.6 Abs Basophils 0 10^3/uL 0-0.2 Abs Nucleated RBC 0 10^3/uL Granulocyte % 78.4 % 38-83 Lymphocyte % 16.6 % Low 25-47 Monocyte % 4.0 % 1-9 Eosinophil % 0.5 % 0-6 Basophil % 0.5 % 0-2 Nucleated Red Blood Cells % 0 Comp Metabolic Panel 12/16/2013 Sodium 137 mmol/L 133-145 Potassium 3.7 mmol/L 3.7-5.6 Chloride 101 mmol/L 101-111 Co2 Carbon Dioxide 30 mmol/L 22-32 Anion Gap 6 mmol/L 2-11 Glucose 97 mg/dL 70-100 Blood Urea Nitrogen 17 mg/dL 6-24 Creatinine 0.94 mg/dL 0.51-0.95 BUN/Creatinine Ratio 18.1 8-20 Calcium 9.3 mg/dL 8.6-10.3 Total Protein 6.6 g/dL 6.4-8.9 Albumin 3.9 g/dL 3.2-5.2 Globulin 2.7 g/dL 2-4 Albumin/Globulin Ratio 1.4 1-3 Total Bilirubin 0.50 mg/dL 0.2-1.0 Alkaline Phosphatase 66 U/L 34-104 Alt 22 U/L 7-52 Ast 20 U/L 13-39 Egfr Non- 60.3 >60 Egfr 77.6 >60 13 Laboratory test finding 11/13/2013 Carla (Anti-Nuclear AB) Negative Negative Screen CBC Auto Diff 11/13/2013 White Blood Count 6.1 10^3/uL 4.8-10.8 Red Blood Count 4.47 10^6/uL 4.0-5.4 Hemoglobin 12.9 g/dL 12.0-16.0 Hematocrit 38 % 35-47 Mean Corpuscular Volume 84 fL 80-97 Mean Corpuscular Hemoglobin 29 pg 27-31 Mean Corpuscular HGB Conc 34 g/dL 31-36 Red Cell Distribution Width 14 % 10.5-15 Platelet Count 175 10^3/uL 150-450 Mean Platelet Volume 8 um3 7.4-10.4 Abs Neutrophils 4.0 10^3/uL 1.5-7.7 Abs Lymphocytes 1.4 10^3/uL 1.0-4.8 Abs Monocytes 0.4 10^3/uL 0-0.8 Abs Eosinophils 0.2 10^3/uL 0-0.6 Abs Basophils 0.1 10^3/uL 0-0.2 Abs Nucleated RBC 0 10^3/uL Granulocyte % 65.5 % 38-83 Lymphocyte % 23.3 % Low 25-47 Monocyte % 6.8 % 1-9 Eosinophil % 3.4 % 0-6 Basophil % 1.0 % 0-2 Nucleated Red Blood Cells % 0.1 Laboratory test finding 11/13/2013 CRP High Sensitivity 21.79 mg/L 14 Cyclic Citrullinated Pept IgG <15.6 U 15 Erythrocyte Sed Rate 47 mm/Hr High 0-30 Hepatitis B Surface Antigen Nonreactive Nonreactive Hepatitis C Antibody Nonreactive Nonreactive Rheumatoid Factor <15 IU/mL <15 16 Comp Metabolic Panel 11/13/2013 Sodium 140 mmol/L 133-145 Potassium 3.3 mmol/L Low 3.7-5.6 Chloride 102 mmol/L 101-111 Co2 Carbon Dioxide 29 mmol/L 22-32 Anion Gap 9 mmol/L 2-11 Glucose 88 mg/dL 70-100 Blood Urea Nitrogen 12 mg/dL 6-24 Creatinine 0.90 mg/dL 0.51-0.95 BUN/Creatinine Ratio 13.3 8-20 Calcium 9.5 mg/dL 8.6-10.3 Total Protein 7.0 g/dL 6.4-8.9 Albumin 4.1 g/dL 3.2-5.2 Globulin 2.9 g/dL 2-4 Albumin/Globulin Ratio 1.4 1-3 Total Bilirubin 0.70 mg/dL 0.2-1.0 Alkaline Phosphatase 86 U/L 34-104 Alt 18 U/L 7-52 Ast 22 U/L 13-39 Egfr Non- 63.4 >60 Egfr 81.6 >60 17 Basic Metabolic Panel 11/06/2008 Sodium 140 mmol/L 135-145 18 Potassium 4.0 mmol/L 3.5-5.0 18 Chloride 104 mmol/L 101-111 18 Co2 (Carbon Dioxide) 29.0 mmol/L 22-32 18 Anion Gap 7.0 mmol/L 2-11 18, 19 Glucose 86 mg/dL 70-100 18, 20 BUN 7 mg/dL 6-24 18 Creatinine 0.90 mg/dL 0.50-1.40 18 One Over Creatinine 1.10 18 BUN/Creatinine Ratio 7.8 Low 8-20 18 Calcium 9.5 mg/dL 8.1-9.9 18, 21 eGFR Non- 68.6 > 60 18 eGFR 83.0 > 60 18, 22 Lipid Profile (Trig/Chol/HDL) 11/06/2008 Triglyceride 101 mg/dL 40-200 18 Cholesterol 141 mg/dL Less Than 200 18, 23 High Density Lipoprotein 40 mg/dL 40-60 18, 24 Cholesterol/HDL Ratio 3.53 AVERAGE 1-4.44 18 Low Density Lipoprotein 81 mg/dL Less Than 100 18, 25 Laboratory test finding 11/06/2008 CPK (Creatine Kinase) 116 U/L 0-170 18 1 Because ethnic data is not always readily available, this report includes an eGFR for both -Americans and non- Americans. The National Kidney Disease Education Program (NKDEP) does not endorse the use of the MDRD equation for patients that are not between the ages of 18 and 70, are , have extremes of body size, muscle mass, or nutritional status, or are non- or non-. According to the National Kidney Foundation, irrespective of diagnosis, the stage of the disease is based on the level of kidney function: Stage Description GFR(mL/min/1.73 m(2)) 1 Kidney damage with normal or decreased GFR 90 2 Kidney damage with mild decrease in GFR 60-89 3 Moderate decrease in GFR 30-59 4 Severe decrease in GFR 15-29 5 Kidney failure <15 (or dialysis) 2 Please note: The following may produce a false positive D Dimer test: - Rheumatoid factor greater than 60 IU/ml - Plasma hemoglobin greater than 0.05 gm/dl - Bilirubin greater than 50 mg/dl - Lipids greater than 1000 mg/dl - FDP greater than 20 ug/ml 3 IAS Severe Sepsis and Septic Shock Management Bundle Measure requires all lactic acids initially measuring >2.0 mmol/L be repeated. 4 >100 to <200 pg/mL: likely compensated congestive heart failure (CHF) 200 to 400 pg/mL: likely moderate CHF >400 pg/mL: likely moderate to severe CHF 5 Because ethnic data is not always readily available, this report includes an eGFR for both -Americans and non- Americans. The National Kid[employer] Disease Education Program (NKDEP) does not endorse the use of the MDRD equation for patients that are not between the ages of 18 and 70, are , have extremes of body size, muscle mass, or nutritional status, or are non- or non-. According to the [employer], irrespective of diagnosis, the stage of the disease is based on the level of kidney function: Stage Description GFR(mL/min/1.73 m(2)) 1 Kidney damage with normal or decreased GFR 90 2 Kidney damage with mild decrease in GFR 60-89 3 Moderate decrease in GFR 30-59 4 Severe decrease in GFR 15-29 5 Kidney failure <15 (or dialysis) 6 Acute inflammation: >10.00 7 Test Performed by: [place] [address] Security Intelligence Analyst: Umang Trejo II, M.D., Ph.D. 8 REFERENCE VALUE <20.0 (Negative) Test Performed by: [place] [address] Security Intelligence Analyst: Umang Trejo II, M.D., Ph.D. 9 Because ethnic data is not always readily available, this report includes an eGFR for both -Americans and non- Americans. The National Kidney Disease Education Program (NKDEP) does not endorse the use of the MDRD equation for patients that are not between the ages of 18 and 70, are , have extremes of body size, muscle mass, or nutritional status, or are non- or non-. According to the National Kidney Foundation, irrespective of diagnosis, the stage of the disease is based on the level of kidney function: Stage Description GFR(mL/min/1.73 m(2)) 1 Kidney damage with normal or decreased GFR 90 2 Kidney damage with mild decrease in GFR 60-89 3 Moderate decrease in GFR 30-59 4 Severe decrease in GFR 15-29 5 Kidney failure <15 (or dialysis) 10 Acute inflammation: >10.00 11 Potassium reference range changed effective 01/05/14 12 Because ethnic data is not always readily available, this report includes an eGFR for both -Americans and non- Americans. The National Kidney Disease Education Program (NKDEP) does not endorse the use of the MDRD equation for patients that are not between the ages of 18 and 70, are , have extremes of body size, muscle mass, or nutritional status, or are non- or non-. According to the National Kidney Foundation, irrespective of diagnosis, the stage of the disease is based on the level of kidney function: Stage Description GFR(mL/min/1.73 m(2)) 1 Kidney damage with normal or decreased GFR 90 2 Kidney damage with mild decrease in GFR 60-89 3 Moderate decrease in GFR 30-59 4 Severe decrease in GFR 15-29 5 Kidney failure <15 (or dialysis) 13 Because ethnic data is not always readily available, this report includes an eGFR for both -Americans and non- Americans. The National Kidney Disease Education Program (NKDEP) does not endorse the use of the MDRD equation for patients that are not between the ages of 18 and 70, are , have extremes of body size, muscle mass, or nutritional status, or are non- or non-. According to the National Kidney Foundation, irrespective of diagnosis, the stage of the disease is based on the level of kidney function: Stage Description GFR(mL/min/1.73 m(2)) 1 Kidney damage with normal or decreased GFR 90 2 Kidney damage with mild decrease in GFR 60-89 3 Moderate decrease in GFR 30-59 4 Severe decrease in GFR 15-29 5 Kidney failure <15 (or dialysis) 14 Low risk: <1.00 Average risk: 1.00-3.00 High risk: >3.00 15 -- REFERENCE VALUE -- <20.0 (Negative) Test Performed by: [place] [address] Security Intelligence Analyst: Ken Bradley III, M.D. 16 Test Performed by: [place] [address] Security Intelligence Analyst: Ken Bradley III, M.D. 17 Because ethnic data is not always readily available, this report includes an eGFR for both -Americans and non- Americans. The National Kidney Disease Education Program (NKDEP) does not endorse the use of the MDRD equation for patients that are not between the ages of 18 and 70, are , have extremes of body size, muscle mass, or nutritional status, or are non- or non-. According to the National Kidney Foundation, irrespective of diagnosis, the stage of the disease is based on the level of kidney function: Stage Description GFR(mL/min/1.73 m(2)) 1 Kidney damage with normal or decreased GFR 90 2 Kidney damage with mild decrease in GFR 60-89 3 Moderate decrease in GFR 30-59 4 Severe decrease in GFR 15-29 5 Kidney failure <15 (or dialysis) 18 FASTING 19 Anion gap measurement may be of limited value in the presence of any alkalosis, especially in a combined acid base disorder. . 20 Note change in reference range as of 10/25/07. The change was based on recommendations from the [place] [employer]. 21 Please note change in reference range effective 07 . 22 Because ethnic data is not always readily available, this report includes an eGFR for both -Americans and non- Americans. The National Kidney Disease Education Program (NKDEP) does not endorse the use of the MDRD equation for patients that are not between the ages of 18 and 70, are , have extremes of body size, muscle mass, or nutritional status, or are non- or non-. According to the National Kidney Foundation, irrespective of diagnosis, the stage of the disease is based on the level of kidney function: Stage Description GFR(mL/min/1.73 m(2)) 1 Kidney damage with normal or decreased GFR 90 2 Kidney damage with mild decrease in GFR 60-89 3 Moderate decrease in GFR 30-59 4 Severe decrease in GFR 15-29 5 Kidney failure <15 (or dialysis) 23 CHOLESTEROL INTERPRETATION: Desirable: Less than 200 MG/DL Borderline-High Risk: 200-239 MG/DL High-Risk: 240 MG/DL and over 24 HDL INTERPRETATION: Undesirable: High Risk: Less than 40 MG/DL Desirable: Low Risk: Greater than 60 MG/DL 25 LDL INTERPRETATION: Low Risk Optimal Level: LDL Less than 100 MG/DL Near or Above Optimal: LDL 100-129 MG/DL Borderline High Risk: LDL 130-159 MG/DL High Risk: LDL 160-189 MG/DL Very High Risk: LDL Greater than 189 MG/DL Procedures Date CPT Code Description Status 03/31/2017 71327 EKG Tracing & Interpretation Completed 02/07/2017 13126 EKG Tracing & Interpretation Completed 01/25/2017 48662 Moderate Sedation Services; Same Phys Intl 15 Mins; PT Completed >=5 Years 01/25/2017 93165 EKG, Interpretation Only Completed 01/25/2017 00586 Cardioversion Completed 01/24/2017 85421 EKG Tracing & Interpretation Completed 06/08/2016 08532 Treadmill Interp/Report Only Completed 06/08/2016 84682 Stress Test Supervsn W/Out I/R Completed 04/12/2016 77089 EKG Tracing & Interpretation Completed 07/27/2015 53331 EKG Tracing & Interpretation Completed 05/22/2015 83579 EKG Tracing & Interpretation Completed 02/24/2015 54435 Polysomnography Sleep Staging 4+ Parameters Completed 11/12/2014 76752 Holter Monitor Review (24 hr)dr [email or web address]; sree Completed only 11/12/2014 52288 ECG Monitor/Recording W/Visual Superimposition Scanning Completed 11/11/2014 09253 ECG Monitor/Recording W/Visual Superimposition Scanning Completed 11/11/2014 77066 Holter Monitor Review (24 hr)dr [email or web address]; sree Completed only 10/31/2014 21164 ECHO Transthoracic, Real-Time 2D With Doppler And Color Completed Flow 10/22/2014 20638 EKG Tracing & Interpretation Completed 02/20/2014 88181 EKG Tracing & Interpretation Completed 11/25/2013 53481 Holter Monitor Review (24 hr)dr [email or web address]; sree Completed only 11/21/2013 50089 EKG Tracing & Interpretation Completed 10/31/2013 48309 Color Flow Doppler/Interp & Reprt Completed 10/31/2013 33848 Color Flow Doppler/Interp & Reprt Completed 10/31/2013 63061 Pulse Wave/Continuous-Interp.RPT Completed 10/31/2013 92947 Pulse Wave/Continuous-Interp.RPT Completed 10/31/2013 43308 Echocardiography, Transesophageal, Real Time W/Image 2D Completed W/W/O M-M 10/31/2013 17754 Echocardiography, Transesophageal, Real Time W/Image 2D Completed W/W/O M-M 10/31/2013 14331 EKG, Interpretation Only Completed 10/31/2013 69884 Cardioversion Completed 10/30/2013 90248 EKG Tracing & Interpretation Completed 07/17/2013 94142 EKG Tracing & Interpretation Completed 12/24/2012 96375 Intravascular Blood Flow Velocity Completed 12/24/2012 27242 Left Heart Cath. Incl S/I Coronaries, Angio S/I V Gram Completed If Done 12/24/2012 46005 Cath PLMT&NJX L Ventriculog Img S&I Completed 12/24/2012 39347 Left Health Catheterization W/Inj For Left Completed Ventriculography,S&I 12/22/2012 50731 Treadmill Interp/Report Only Completed 12/22/2012 41373 Stress Test Supervsn W/Out I/R Completed 12/22/2012 31305 EKG, Interpretation Only Completed 12/12/2012 09972 EKG Tracing & Interpretation Completed 04/13/2012 50153 EKG Tracing & Interpretation Completed 08/05/2011 86946 EKG Tracing & Interpretation Completed 12/31/2010 95026 EKG Tracing & Interpretation Completed 12/10/2010 49783 Treadmill Interp/Report Only Completed 12/10/2010 50418 Stress Test Supervsn W/Out I/R Completed 12/10/2010 24554 EKG, Interpretation Only Completed 06/16/2010 84137 EKG Tracing & Interpretation Completed 06/09/2010 42858 Left Heart Cath. Incl S/I Coronaries, Angio S/I V Gram Completed If Done 06/09/2010 21007 Cath PLMT&NJX L Ventriculog Img S&I Completed 06/07/2010 79854 Treadmill Interp/Report Only Completed 06/07/2010 86215 Stress Test Supervsn W/Out I/R Completed 06/06/2010 04611 Color Flow Doppler/Interp & Reprt Completed 06/06/2010 00763 Pulse Wave/Continuous-Interp.RPT Completed 06/06/2010 69667 ECHO Transthorasic Realtime 2D W Doppler & Color Completed [facility] 06/06/2010 78442 EKG, Interpretation Only Completed 01/08/2010 24821 EKG Tracing & Interpretation Completed 05/14/2009 15602 EKG Tracing & Interpretation Completed 04/21/2009 24459 ECHO Transthorasic Realtime 2D W Doppler & Color Completed [facility] 10/30/2008 53709 EKG Tracing & Interpretation Completed 06/01/2008 26896 Treadmill Interp/Report Only Completed 06/01/2008 46439 Stress Test Supervsn W/Out I/R Completed Encounters Type Date Location Provider CPT E/M Dx Office Visit 03/18/2017 [facility], Ofe [address] I48.91 2:36p Hospitalists TEOFILO Alonzo I71.4 I25.118 Office Visit 03/17/2017 2:36p [facility], [place] [address] I48.91 Hospitalists I71.4 I25.118 Office Visit 02/07/2017 4:20p [facility] Yvan Nava, 72936 I48.0 M.DCesar I25.10 I10 Office Visit 01/25/2017 3:17p [facility], Coleen Arango, 76135 I48.0 Hospitalists M.D. Office Visit 01/24/2017 3:16p [facility], Coleen Arango, 28843 I48.0 Hospitalists M.D. Office Visit 01/24/2017 1:20p [facility] Yvan Jane 36659 I25.10 Valente Nava I10 I48.91 E78.4 R00.0 R94.31 Office Visit 06/08/2016 11:09a [facility], Benjamin Braswell, 84046 M54.9 Hospitalists M.DCesar R07.89 Office Visit 06/07/2016 11:07a [facility], Coleen Arango, 83455 M54.9 Hospitalists M.DCesar R07.89 Office Visit 04/12/2016 9:00a [facility] Yvan Nava, 43384 I25.10 DeedeeDCesar I10 I48.91 E78.4 Z01.810 M75.102 R94.31 Office Visit 07/27/2015 9:40a [facility] Yvan Nava, 97105 I48.Emma Victor I25.10 I10 I49.1 Office Visit 05/22/2015 2:00p [facility] [place]. [address] I48.91 Felisha Nava M.D. I25.10 I10 Office Visit 03/23/2015 2:30p [facility] [place] [address] R06.83 [facility] E66.09 Office Visit 02/12/2015 2:00p [facility] [place] [address] G47.9 [facility] I48.91 K21.9 E66.09 Office Visit 11/18/2014 3:00p [facility] LOGAN Carr 60579 785.1 414.00 401.9 786.05 427.31 427.61 Office Visit 10/22/2014 12:00p [facility] Juantaybcollin S. Elijah, 63901 414.00 M.DCesar 401.9 785.1 780.79 Office Visit 08/15/2014 1:20p [facility] Dennis Jade M.D. 53808 338.4 [facility] 715.09 714.0 V58.69 Office Visit 05/23/2014 2:40p [facility] Dennis Jade M.D. 66977 714.0 [facility] V58.69 338.4 715.09 Office Visit 03/24/2014 3:40p [facility] Miguel Vargas M.D. 05547 714.0 [facility] Office Visit 02/20/2014 8:40a [facility] Yvan Jane 28637 427.31 Valente Nava 414.00 401.9 401.1 780.79 Office Visit 01/27/2014 11:40a [facility] Of Miguel Vargas M.D. 32128 714.0 [facility] Office Visit 12/16/2013 3:00p [facility] Of Miguel Vargas M.D. 60707 714.0 [facility] 714.0 Office Visit 11/21/2013 12:00p [facility] Juantaybcollin Nava 82301 427.31 MBibi 414.00 401.9 Office Visit 11/13/2013 3:20p Rheumatology Services Miguel Vargas M.D. 59848 714.0 [facility] Office Visit 11/01/2013 3:49p [facility] Zhou Schwab, 93879 427.31 Hospitalists M.DCesar 414.00 338.29 401.9 Office Visit 10/31/2013 10:27a [facility] Marija Sagastume M.D. 33013 427.31 [facility] 414.01 Office Visit 10/30/2013 3:47p [facility] Deja Thomas, N.P. 24481 427.31 Hospitalists 414.00 338.29 401.9 Office Visit 10/30/2013 2:00p Rheumatology Services Miguel Vargas M.D. 13623 719.90 [facility] 427.31 Office Visit 07/17/2013 4:00p [facility] Qutaybeh S. Maghagrzegorz, 28781 414.01 M.D. 401.1 272.4 V45.82 Office Visit 01/01/2013 3:30p [facility] Mag[facility], 85870 414.01 M.DCesar 401.1 272.4 V45.82 Office Visit 12/25/2012 8:21a [facility], Deann Little, 44236 411.1 Hospitalists N.P. 414.00 272.2 401.9 Office Visit 12/24/2012 8:20a [facility], Luca Teixeira, 07168 411.1 Hospitalists N.P. 414.00 272.2 401.9 Office Visit 12/24/2012 11:30a [facility] Qutaybeh S. Maghaydah, 07633 414.01 M.DCesar 786.50 786.05 Office Visit 12/23/2012 8:20a [facility], Luca Teixeira, 20706 411.1 Hospitalists N.P. 401.9 414.00 272.2 Office Visit 12/23/2012 10:13a [facility] Judah Driscoll, 33237 414.9 M.Mick, FACC, FASIL Office Visit 12/22/2012 8:19a [facility], Luca Teixeira, 15122 411.1 Hospitalists N.P. 401.9 414.00 272.2 Office Visit 12/22/2012 9:41a [facility] Judah Driscoll, 92283 414.9 M.D., [facility], FASIL Office Visit 12/21/2012 8:18a [facility], Luca Teixeira, 36198 411.1 Hospitalists N.P. 401.9 414.00 272.2 Office Visit 12/21/2012 8:50a [facility] Shaun Man, 09360 786.50 M.D. 794.31 414.01 Office Visit 12/12/2012 2:20p [facility] Qutaybeh S. Maghaydah, 58269 414.01 M.D. 401.1 272.4 786.05 Office Visit 04/13/2012 2:40p [facility] Qutaybeh S. Maghaydah, 33384 414.01 M.D. 401.1 272.4 794.31 Office Visit 08/05/2011 10:40a [facility] Qutaybeh S. Maghaydah, 71022 794.31 M.D. 414.01 401.1 272.4 Office Visit 12/31/2010 11:20a [facility] Qutaybeh S. Maghaydah, 82742 794.31 M.D. 414.01 401.1 272.4 Office Visit 12/10/2010 3:48p [facility] Qutaybeh S. Maghaydah, 45607 794.31 M.D. 414.01 401.1 786.50 v45.82 Office Visit 06/16/2010 10:00a [facility] Qutaybeh S. Maghaydah, 39767 414.01 M.D. 401.1 272.4 V45.82 Office Visit 06/09/2010 11:21a [facility] Qutaybeh S. Maghaydah, 71710 794.31 M.D. 414.01 401.1 786.50 786.05 Office Visit 06/08/2010 10:57a [facility] Qutaybeh S. Maghaydah, 16765 786.50 M.D. 414.01 401.1 272.4 v45.82 Office Visit 06/07/2010 9:46a [facility] Yvan FergusonCesar Olivasjorgechikisjohn, 34689 414.01 M.D. 401.1 272.4 786.05 786.50 Office Visit 06/06/2010 8:43a [facility] Shaun Man, 99564 794.31 M.D. 786.50 786.09 414.01 Office Visit 02/22/2010 1:15p [facility] [place] [address] 401.1 Office Visit 01/08/2010 3:20p [facility] Juantaybcollin SCesar Nava, 32004 414.01 M.D. 401.1 496 Office Visit 05/14/2009 3:00p [facility] Raulasiacollin Nava, 03704 414.01 M.D. 401.1 496 401.9 Office Visit 04/21/2009 2:00a [facility] Leeann Camacho, 53016 780.59 Hospitalists M.DCesar 414.9 496 493.90 300.00 Office Visit 04/20/2009 3:00a [facility] Rosales Sher M.D. 54378 786.50 Hospitalists 401.9 790.99 271.3 785.1 Office Visit 10/30/2008 10:20a [facility] Juanlandy Buck Nava, 63081 414.01 M.D. V45.82 401.1 Plan of Care Future Appointment(s):04/07/2017 3:00 pm - Deann Little, N.P. at [facility]03/31/2017 - Yvan Nava M.D.I48.0 Paroxysmal atrial fibrillationNew Medication:Multaq 400 mgFollow up:Deann one week for f/u after multaq and needs EKG then. 7 months ov with meI71.4 Abdominal aortic aneurysm, without erufxtaV58.118 Athscl heart disease of [place] w oth ang [id number] Essential (primary) [id number] Other hyperlipidemia
--- NOTE | 2017-04-02 07:04 | ED ---
Teto Luke Tecjoon, scribed for Gamaliel Hancock MD on 04/02/17 at 0650 . HPI Cardiac - HPI Summary HPI Summary: This patient is a 67 year old female presenting to [facility] accompanied by with a chief complaint of heart palpitations that awoke her from sleep. These lasted maybe 5min. Currently started multaq. On Pradaxa and Metoprolol. Patient states she had afib and her heart was racing. Symptoms aggravated by nothing. Symptoms alleviated by nothing. The patient utilized a new medicine since 3 days ago - History of Current Complaint Chief Complaint: EDDysrhythmPalp Stated Complaint: AFIB Time Seen by Provider: 04/02/17 06:33 Hx Obtained From: Patient Onset/Duration: Started Days Ago - 1, Resolved Timing: Intermittent Current Severity: None Pain Intensity: 0 Pain Scale Used: 0-10 Numeric Aggravating Factor(s): Nothing Alleviating Factor(s): Nothing - Additional Pertinent History Primary Care Physician: JOSE MANUEL - Allergy/Home Medications Allergies/Adverse Reactions: Allergies Allergy/AdvReac Type Severity Reaction Status Date / Time Ezetimibe [From Vytorin] Allergy Intermediate Rash Verified 04/02/17 06:37 Simvastatin [From Vytorin] Allergy Intermediate Rash Verified 04/02/17 06:37 Codeine Allergy GI Upset Verified 04/02/17 06:37 Latex Allergy Rash Verified 04/02/17 06:37 PMH/Surg Hx/FS Hx/Imm Hx Previously Healthy: No Endocrine/Hematology History: Reports: Hx Thyroid Disease - HYPO Denies: Hx Diabetes Cardiovascular History: Reports: Hx Aneurysm, Hx Angina, Hx Atrial Fibrillation , Hx Coronary Artery Disease - STENT/ANGIOPLASTY 2001, Hx Hypercholesterolemia, Hx Hypertension - ON MEDS, Other Cardiovascular Problems/Disorders - AAA Denies: Hx Pacemaker/ICD Respiratory History: Reports: Hx Asthma, Hx Chronic Obstructive Pulmonary Disease (COPD) GI History: Reports: Hx Gastroesophageal Reflux Disease, Hx Hiatal Hernia History: Denies: Hx Renal Disease Musculoskeletal History: Reports: Hx Arthritis Sensory History: Reports: Hx Contacts or Glasses Denies: Hx Hearing Aid Opthamlomology History: Reports: Hx Contacts or Glasses Neurological History: Reports: Hx Migraine Psychiatric History: Reports: Hx Anxiety, Hx Depression Denies: Hx Panic Disorder - Cancer History Hx Chemotherapy: No Hx Radiation Therapy: No - Surgical History Surgery Procedure, Year, and Place: BILATERAL CARPAL TUNNEL RELEASE. ROTOR CUFF REPAIR LEFT. RIGHT KNEE SCOPE. CARDIAC STENTS 2001(MULTI LINK [place]- CONDITIONAL 5 UP TO 3 T//330 G/CM) DR COTTER APPROVED HER FOR SCANNING ON 03.10 ONLY. Hx Anesthesia Reactions: No - Immunization History Date of Tetanus Vaccine: unk Date of Influenza Vaccine: unk Infectious Disease History: No Infectious Disease History: Reports: Hx of Known/Suspected MRSA - under arm many years ago Denies: Traveled Outside the [place] in Last 30 Days - Family History Known Family History: Positive: Cardiac Disease - both parents, Hypertension - Social History Lives: With Family Alcohol Use: Rare Alcohol Amount: wine Hx Substance Use: No Substance Use Type: Reports: None Hx Tobacco Use: Yes Smoking Status (MU): Former Smoker Review of Systems Negative: Fever Positive: Palpitations, Other - "afib" All Other Systems Reviewed And Are Negative: Yes Physical Exam - Summary Physical Exam Summary: Appearance: Well appearing, no pain distress Skin: warm, dry, reflects adequate perfusion Head/face: normal Eyes: EOMI, GREG ENT: normal Neck: supple, non-tender Respiratory: CTA, breath sounds present Cardiovascular: RRR, pulses symmetrical Abdomen: non-tender, soft Bowel: present Musculoskeletal: normal, strength/ROM intact Neuro: normal, sensory motor intact, A&Ox3 Triage Information Reviewed: Yes Vital Signs On Initial Exam: Initial Vitals Temp Pulse Resp BP Pulse Ox 98.7 F 63 16 118/71 99 04/02/17 06:24 04/02/17 06:24 04/02/17 06:24 04/02/17 06:24 04/02/17 06:24 Vital Signs Reviewed: Yes Diagnostics - Vital Signs Vital Signs Temp Pulse Resp BP Pulse Ox 04/02/17 06:24 98.7 F 63 16 118/71 99 - Laboratory Lab Statement: Any lab studies that have been ordered have been reviewed, and results considered in the medical decision making process. - EKG 0620 Cardiac Rate: NL EKG Rhythm: Sinus Rhythm - [address] Segment: Normal Ectopy: None Re-Evaluation - Re-Evaluation First Eval Change: Improved - no sx here Disposition - Course Course Of Treatment: NSR here. On new med for pAfib. Sees Cards Wed. D/W on- call Cards who agrees at discharge and f/u. - Diagnoses Provider Diagnoses: Paroxysmal atrial fibrillation - Physician Notifications Discussed Care Of Patient With: Jared Cespedes - Hammer Smith Time Discussed With Above Provider: 06:49 - We discussed patient care with Dr. Cespedes (in store marketer) and they stated the patient can be discharged Discharge - Discharge Plan Condition: Good Disposition: HOME Referrals: Isidoro Wiseman MD [Primary Care Provider] - Yvan Nava MD [Medical Doctor] - Additional Instructions: Stay well hydrated. Avoid alcohol and caffeine. Continue medications as ordered. Document heart rate and rhythm with episodes Return if worse, new symptoms or other concerns as discussed. The documentation as recorded by the Teto herman Tecjoon accurately reflects the service I personally performed and the decisions made by me, Gamaliel Hancock MD.
[2017-04-02 07:16] VITALS: BP 143/54
== END 2017-04-02 07:14 | disposition home or self-care (01) ==
LOC: ED 06:14
DX: I48.0 Paroxysmal atrial fibrillation (principal); Z79.01 Long term (current) use of anticoagulants; E03.9 Hypothyroidism, unspecified; I25.119 Atherosclerotic heart disease of native coronary artery with unspecified angina pectoris; I10 Essential (primary) hypertension; Z95.5 Presence of coronary angioplasty implant and graft; E78.00 Pure hypercholesterolemia, unspecified; I71.4 Abdominal aortic aneurysm, without rupture; J44.9 Chronic obstructive pulmonary disease, unspecified; K21.9 Gastro-esophageal reflux disease without esophagitis; K44.9 Diaphragmatic hernia without obstruction or gangrene; G43.909 Migraine, unspecified, not intractable, without status migrainosus; F41.9 Anxiety disorder, unspecified; F32.9 Major depressive disorder, single episode, unspecified; Z88.5 Allergy status to narcotic agent; Z88.8 Allergy status to other drugs, medicaments and biological substances; Z91.040 Latex allergy status; Z87.891 Personal history of nicotine dependence
CPT/HCPCS: 93005; 99282

== ENCOUNTER 2017-10-23 17:20 | Emergency (ER) | payer MEDICARE ==
--- NOTE | 2017-10-23 19:32 | ED ---
Complex/Multi-Sys Presentation - HPI Summary HPI Summary: Pt is 67 y/o F who presents to ED c/o SOB for the past week. She has also had a dull headache and hasnt slept for the past couple nights. She states she was woken up several nights this week by going into Afib. She went into Afib earlier today which prompted her to come to ED, but by the time she arrives to ED the Afib has resolved. Notes a dry cough, elbow pain, chills, an irritated throat, and she feels lethargic and not like herself. Exertion exacerbates her condition. Currently she denies having any pain. Denies chest pain, abdominal pain, back pain, fever, or edema in legs. Pt says her appetite has been unaffected and she is on blood thinners. PMHx of COPD, and she doesnt smoke any more. - History Of Current Complaint Chief Complaint: EDShortnessOfBreath Time Seen by Provider: 10/23/17 19:26 Hx Obtained From: Patient Onset/Duration: Lasting Days, Still Present Severity Currently: None Character: Dull - Dull headache Aggravating Factor(s): Exertion Associated Signs And Symptoms: Positive: Headache, SOB, Cough, Other - Elbow pain, chills, irritated throat, lethargic. Negative: Chest Pain, Edema, Back Pain, Fever - Allergies/Home Medications Allergies/Adverse Reactions: Allergies Allergy/AdvReac Type Severity Reaction Status Date / Time MS Ezetimibe [From Vytorin] Allergy Intermediate Rash Verified 10/23/17 19:02 MS Simvastatin [From Vytorin] Allergy Intermediate Rash Verified 10/23/17 19:02 MS Codeine [Codeine] Allergy GI Upset Verified 10/23/17 19:02 MS Latex [Latex] Allergy Rash Verified 10/23/17 19:02 Home Medications: Home Medications Metoprolol Tartrate TAB* [Lopressor TAB*] 100 mg PO BID 10/23/17 [History Confirmed 10/23/17] PMH/Surg Hx/FS Hx/Imm Hx Endocrine/Hematology History: Reports: Hx Thyroid Disease - HYPO Denies: Hx Diabetes Cardiovascular History: Reports: Hx Aneurysm, Hx Angina, Hx Atrial Fibrillation , Hx Coronary Artery Disease - STENT/ANGIOPLASTY 2001, Hx Hypercholesterolemia, Hx Hypertension - ON MEDS, Other Cardiovascular Problems/Disorders - AAA Denies: Hx Pacemaker/ICD Respiratory History: Reports: Hx Asthma, Hx Chronic Obstructive Pulmonary Disease (COPD) GI History: Reports: Hx Gastroesophageal Reflux Disease, Hx Hiatal Hernia History: Denies: Hx Renal Disease Musculoskeletal History: Reports: Hx Arthritis Sensory History: Reports: Hx Contacts or Glasses Denies: Hx Hearing Aid Opthamlomology History: Reports: Hx Contacts or Glasses Neurological History: Reports: Hx Migraine Psychiatric History: Reports: Hx Anxiety, Hx Depression Denies: Hx Panic Disorder - Cancer History Hx Chemotherapy: No Hx Radiation Therapy: No - Surgical History Surgery Procedure, Year, and Place: BILATERAL CARPAL TUNNEL RELEASE. ROTOR CUFF REPAIR LEFT. RIGHT KNEE SCOPE. CARDIAC STENTS 2001(MULTI LINK [place]- CONDITIONAL 5 UP TO 3 T//330 G/CM) DR COTTER APPROVED HER FOR SCANNING ON 03.10 ONLY. Hx Anesthesia Reactions: No - Immunization History Date of Tetanus Vaccine: unk Date of Influenza Vaccine: unk Immunizations Up to Date: Yes Infectious Disease History: No Infectious Disease History: Reports: Hx of Known/Suspected MRSA - under arm many years ago Denies: Traveled Outside the [place] in Last 30 Days - Family History Known Family History: Positive: Cardiac Disease - both parents, Hypertension - Social History Alcohol Use: Rare Alcohol Amount: wine Hx Substance Use: No Substance Use Type: Reports: None Hx Tobacco Use: Yes Smoking Status (MU): Former Smoker Review of Systems Positive: Chills, Fatigue. Negative: Fever ENT: Other - Dry Cough Positive: Other - irritated throat. Negative: Sore Throat Negative: Chest Pain Negative: Abdominal Pain Positive: Other - Elbow pain, NEGATIVE: back pain. Negative: Edema All Other Systems Reviewed And Are Negative: Yes Physical Exam - Summary Physical Exam Summary: Appearance: Well-appearing, Well-nourished, lying in bed comfortably Skin: Warm, dry, no obvious rash Eyes: sclera anicteric, no conjunctival pallor ENT: mucous membranes moist, pharynx appears normal Neck: Supple, nontender Respiratory: Clear to auscultation, no signs of respiratory distress Cardiovascular: Normal S1, S2. No murmurs. Normal distal pulses in tibial and radial bilaterally. Abdomen: Soft, nontender, normal active bowel sounds present Musculoskeletal: Normal, Strength/ROM Intact Neurological: A&Ox3, awake and alert, mentation is normal, speech is fluent and appropriate Psychiatric: affect is normal, does not appear anxious or depressed Triage Information Reviewed: Yes Vital Signs On Initial Exam: Initial Vitals Temp Pulse Resp BP Pulse Ox 98.7 F 69 18 168/74 97 10/23/17 17:42 10/23/17 17:42 10/23/17 17:42 10/23/17 17:42 10/23/17 17:42 Vital Signs Reviewed: Yes Diagnostics - Vital Signs Vital Signs Temp Pulse Resp BP Pulse Ox 10/23/17 17:42 98.7 F 69 18 168/74 97 - Laboratory Result Diagrams: 10/23/17 20:08 10/23/17 20:08 Lab Statement: Any lab studies that have been ordered have been reviewed, and results considered in the medical decision making process. Complex Multi-Symp Course/Dx - Diagnoses Provider Diagnoses: Dyspnea Discharge - Sign-Out/Discharge Documenting (check all that apply): Patient Departure - Discharge Plan Condition: Stable Disposition: HOME Patient Education Materials: Dyspnea (ED) Referrals: Isidoro Wiseman MD [Primary Care Provider] - 3 Days Additional Instructions: The exact cause of your shortness of breath is not clear at present. The studies we did today did not indicate any serious problem such as pneumonia, congestive heart failure, or pulmonary embolism. If her symptoms persist he should see her primary care doctor, and certainly if they worsen or you develop new symptoms we would like to see you back here. - Billing Disposition and Condition Condition: STABLE Disposition: Home - Attestation Statements Document Initiated by Anastasiya: Yes Documenting Scribe: Lisbeth Hatfield Provider For Whom Anastasiya is Documenting (Include Credential): Khai Dominguez MD Scribe Attestation: Lisbeth Luke, scribed for Khai Dominguez MD on 10/24/17 at 1954. Scribe Documentation Reviewed: Yes Provider Attestation: The documentation as recorded by the [email or web address] accurately reflects the service I personally performed and the decisions made by me, Khai Dominguez MD
[2017-10-23 20:14] LABS: ABS Basophils 0.1 10^3/ul (0-0.2); ABS Eosinophils 0.3 10^3/ul (0-0.6); ABS Monocytes 0.7 10^3/ul (0-0.8); ABS Neutrophils 3.1 10^3/ul (1.5-7.7); ABS Nucleated RBC 0 10^3/ul; Hematocrit 40 % (35-47); Hemoglobin 13.5 g/dl (12.0-16.0); Lymphocyte % 32.4 % (25-47); Mean Corpuscular HGB Conc 34 g/dl (31-36); Mean Corpuscular Hemoglobin 28 pg (27-31); Mean Corpuscular Volume 83 fL (80-97); Mean Platelet Volume 8.4 um3 (7.4-10.4); Nucleated Red Blood Cells % 0; Platelet Count 168 10^3/ul (150-450); Red Blood Count 4.78 10^6/ul (4.00-5.40); Red Cell Distribution Width 14 % (10.5-15); White Blood Count 6.1 10^3/ul (3.5-10.8)
[2017-10-23 20:34] LABS: EGFR Non-African American 62.6 (>60)
[2017-10-23 21:37] VITALS: BP 154/77
--- NOTE | 2017-10-24 07:36 | RAD ---
HISTORY: dyspnea COMPARISONS: March 29, 2017 VIEWS: 4: Frontal dual-energy and lateral views of the chest. FINDINGS: CARDIOMEDIASTINAL SILHOUETTE: The cardiomediastinal silhouette is normal. NIRAV: The nirav are normal. PLEURA: The costophrenic angles are sharp. No pleural abnormalities are noted. LUNG PARENCHYMA: The lungs are clear. ABDOMEN: The upper abdomen is clear. There is no subphrenic gas. BONES AND SOFT TISSUES: No bone or soft tissue abnormalities are noted. OTHER: None. IMPRESSION: NO ACTIVE CARDIOPULMONARY DISEASE. R0
== END 2017-10-23 21:43 | disposition home or self-care (01) ==
LOC: ED 17:20
DX: R06.00 Dyspnea, unspecified (principal); Z87.891 Personal history of nicotine dependence; E03.9 Hypothyroidism, unspecified; I48.91 Unspecified atrial fibrillation; I25.10 Atherosclerotic heart disease of native coronary artery without angina pectoris; I10 Essential (primary) hypertension; J44.9 Chronic obstructive pulmonary disease, unspecified; K21.9 Gastro-esophageal reflux disease without esophagitis
CPT/HCPCS: 36415; 71046; 80053; 83605; 84484; 85025; 85379; 93005; 99283

== ENCOUNTER 2018-03-10 12:03 | Observation (INO) | payer MEDICARE ==
[2018-03-10] MEDS ORDERED: hydrALAZINE IV* 20 MG/ML VIAL IV SLOW PU ONE ×2 (12:30→13:42)
--- NOTE | 2018-03-10 12:37 | ED ---
Neurological HPI - HPI Summary HPI Summary: A 68 y/o female brought in by ambulance presents to the ED c/o dizziness. Additionally c/o blurry vision. Currently, the patient feels dizzy (not room spinning, but feels like she is going to fall). In the ED room, the patient has a pule of 67 BPM, O2 saturation of 98%, and blood pressure of 202/108. As per triage, "pt arrives via [facility] with a complaint of blurred vision lasting a few minutes to left eye. pt reports dizziness as well. states now has a headache. states a month ago leaned to left and called to get help. saw street department dispatcher who said she may be having mini strokes and she needs to see neuro but cant get in till August. is supposed to have echo 03/14/18 as well". According to the patient, she thinks she is having mini-strokes. She stated that this is what her street department dispatcher, Dr. Nava, believes. She saw him a few weeks ago in which he set her up with a neurologist but she cannot get in until August. Some of her symptoms that started all of this was a month ago which include headache and dizziness. Additionally, she experienced right-sided blurry vision. She stated at first, she could sit up, or stand up as she would get dizzy. She came to the ED today because of blurry vision in both eyes when she was at home this morning which lasted 10 minutes. She also experienced dizziness that felt like she was going to fall ("like I took too much to drink"). She then took her BP medications and found that her BP was at first 200/89, then checked again and it was 189/104. Her daughter advised her to go to ED. Patient takes Aspirin and Pradaxa. Home Medications Medication Instructions Recorded Confirmed Type ALPRAZolam TAB* [Xanax TAB*] 0.5 mg PO TID PRN 12/21/12 03/10/18 History Hydrochlorothiazide TAB* 25 mg PO DAILY 12/21/12 03/10/18 History [Hydrodiuril TAB*] Omeprazole CAP* [Prilosec CAP* 20 20 mg PO DAILY PRN 12/21/12 03/10/18 History MG] Simvastatin TAB(NF) [Zocor 10 MG 10 mg PO BEDTIME 12/21/12 03/10/18 History (NF)] Dabigatran CAP(NF) [Pradaxa 150 mg PO BID 11/27/14 03/10/18 History CAP(NF)] Levothyroxine TAB* [Synthroid 75 75 mcg PO DAILY 11/27/14 03/10/18 History MCG TAB*] Aspirin EC TAB* [Ecotrin EC Low 81 mg PO DAILY 06/07/16 03/10/18 History Dose 81 MG*] Cholecalciferol TAB* [Vitamin D 2,000 units PO DAILY 01/24/17 03/10/18 History TAB*] Cyanocobalamin/Folic AC/Vit B6 1 tab PO DAILY 01/24/17 03/10/18 History [Folplex 2.2 Tablet] Potassium Chlor TAB* [Potassium 20 meq PO BID #60 tab.er 01/25/17 03/10/18 Rx Chlor TAB 20 MEQ*] Metoprolol Tartrate TAB* 100 mg PO BID 10/23/17 03/10/18 History [Lopressor TAB*] - History of Current Complaint Chief Complaint: EDDizziness Stated Complaint: POSS STROKE Time Seen by Provider: 03/10/18 12:20 Hx Obtained From: Patient Onset/Duration: Sudden Onset, Started weeks ago, Still Present Timing: Intermittent Episodes Lasting: Current Severity: None Pain Intensity: 0 Pain Scale Used: 0-10 Numeric Character: Dizzy Aggravating: Nothing Alleviating: Nothing Associated Signs and Symptoms: Positive: Headache, Dizziness - Additional Pertinent History Primary Care Physician: [id number] - Allergy/Home Medications Allergies/Adverse Reactions: Allergies Allergy/AdvReac Type Severity Reaction Status Date / Time codeine Allergy GI Upset Verified 03/10/18 13:43 ezetimibe Allergy Rash Verified 03/10/18 13:43 latex Allergy Rash Verified 03/10/18 13:43 simvastatin Allergy Rash Verified 03/10/18 13:43 PMH/Surg Hx/FS Hx/Imm Hx Endocrine/Hematology History: Reports: Hx Thyroid Disease - HYPO Denies: Hx Diabetes Cardiovascular History: Reports: Hx Aneurysm, Hx Angina, Hx Atrial Fibrillation , Hx Coronary Artery Disease - STENT/ANGIOPLASTY 2001, Hx Hypercholesterolemia, Hx Hypertension - ON MEDS, Other Cardiovascular Problems/Disorders - AAA Denies: Hx Pacemaker/ICD Respiratory History: Reports: Hx Asthma, Hx Chronic Obstructive Pulmonary Disease (COPD) GI History: Reports: Hx Gastroesophageal Reflux Disease, Hx Hiatal Hernia History: Denies: Hx Renal Disease Musculoskeletal History: Reports: Hx Arthritis Sensory History: Reports: Hx Contacts or Glasses Denies: Hx Hearing Aid Opthamlomology History: Reports: Hx Contacts or Glasses Neurological History: Reports: Hx Migraine Psychiatric History: Reports: Hx Anxiety, Hx Depression Denies: Hx Panic Disorder - Cancer History Hx Chemotherapy: No Hx Radiation Therapy: No - Surgical History Surgery Procedure, Year, and Place: BILATERAL CARPAL TUNNEL RELEASE. ROTOR CUFF REPAIR LEFT. RIGHT KNEE SCOPE. CARDIAC STENTS 2001(MULTI LINK [place]- CONDITIONAL 5 UP TO 3 T//330 G/CM) DR COTTER APPROVED HER FOR SCANNING ON 1.5 ONLY. Hx Anesthesia Reactions: No - Immunization History Date of Tetanus Vaccine: unk Date of Influenza Vaccine: unk Infectious Disease History: No Infectious Disease History: Reports: Hx of Known/Suspected MRSA - under arm many years ago Denies: Traveled Outside the [place] in Last 30 Days - Family History Known Family History: Positive: Cardiac Disease - both parents, Hypertension - Social History Alcohol Use: Rare Alcohol Amount: wine Hx Substance Use: No Substance Use Type: Reports: None Hx Tobacco Use: Yes Smoking Status (MU): Former Smoker Review of Systems Negative: Fever Positive: Blurred Vision Positive: Other - POSITIVE: HBP Neurological: Other - POSITIVE: DIZZINESS Positive: Headache All Other Systems Reviewed And Are Negative: Yes Physical Exam - Summary Physical Exam Summary: VITAL SIGNS: Reviewed. GENERAL: Patient is a well-developed and nourished female who is lying comfortable in the stretcher. Patient is not in any acute respiratory distress. HEAD AND FACE: No signs of trauma. No ecchymosis, hematomas or skull depressions. No sinus tenderness. EYES: PERRLA, EOMI x 2, No injected conjunctiva, no nystagmus. EARS: Hearing grossly intact. Ear canals and tympanic membranes are within normal limits. MOUTH: Oropharynx within normal limits. NECK: Supple, trachea is midline, no adenopathy, no JVD, no carotid bruit, no c- spine tenderness, neck with full ROM. CHEST: Symmetric, no tenderness at palpation LUNGS: Clear to auscultation bilaterally. No wheezing or crackles. CVS: Regular rate and rhythm, S1 and S2 present, no murmurs or gallops appreciated. ABDOMEN: Soft, non-tender. No signs of distention. No rebound no guarding, and no masses palpated. Bowel sounds are normal. EXTREMITIES: FROM in all major joints, no edema, no cyanosis or clubbing. NEURO: Alert and oriented x 3. No acute neurological deficits. Speech is normal and follows commands. SKIN: Dry and warm GCS: 15 Triage Information Reviewed: Yes Vital Signs On Initial Exam: Initial Vitals Temp Pulse Resp BP Pulse Ox 97.3 F 67 16 202/108 96 03/10/18 12:19 03/10/18 12:19 03/10/18 12:19 03/10/18 12:19 03/10/18 12:19 Vital Signs Reviewed: Yes - Carina Coma Scale Best Eye Response: 4 - Spontaneous Best Motor Response: 6 - Obeys Commands Best Verbal Response: 5 - Oriented Coma Scale Total: 15 Diagnostics - Vital Signs Vital Signs Temp Pulse Resp BP Pulse Ox 03/10/18 12:19 97.3 F 67 16 202/108 96 - Laboratory Result Diagrams: 03/10/18 12:44 03/11/18 05:36 Lab Statement: Any lab studies that have been ordered have been reviewed, and results considered in the medical decision making process. - Radiology CXR Radiology Interpretation Completed By: Radiologist Summary of Radiographic Findings: No radiographic evidence of acute cardiopulmonary disease. ED PHYSICIAN REVIEWED THIS RADIOLOGY REPORT. - CT BRAIN CT CT Interpretation Completed By: Radiologist Summary of CT Findings: No CT evidence of acute intracranial abnormality. ED PHYSICIAN REVIEWED THIS RADIOLOGY REPORT. CTA HEAD CT Interpretation Completed By: Radiologist Summary of CT Findings: 1. There is calcified atherosclerosis at the bilateral carotid bulbs extending into the bilateral internal carotid arteries causing 67 % degree stenosis on the right and 25% degree stenosis on the left according to Nascet criteria. 2. There are no large abrupt filling defects of the intracranial arterial vasculature. 3. In the left lobe of the thyroid there is a 6 mm hypoattenuating focus that can be followed up with nonemergent ultrasound if clinically indicated. ED PHYSICIAN REVIEWED THIS RADIOLOGY REPORT. - EKG 1316 Cardiac Rate: NL - 69 BPM EKG Rhythm: Sinus Rhythm - 69 BPM Summary of EKG Findings: NO ST ELEVATIONS. NIH Scale - NIH Scale Level of Consciousness: Alert/Keenly Responsive Ask Patient the Month and His/Her Age: Both Correct Ask Pt to Open/Close Eyes and Programmer Developer/Release Non-Paretic Hand: Both Correctly Best Gaze (Only Horizontal Eye Movement): Normal Visual Field Testing: No Visual Loss Facial Paresis-Pt to Smile & Close Eyes or Grimace Symmetry: Normal/Symmetrical Motor Function - Right Arm: No Drift-Holds 10 Seconds Motor Function - Left Arm: No Drift-Holds 10 Seconds Motor Function - Right Leg: No Drift-Holds 10 Seconds Motor Function - Left Leg: No Drift-Holds 10 Seconds Limb Ataxia-Must be out of Proportion to Weakness Present: Absent Sensory (Use Pinprick to Test Arms/Legs/Trunk/Face): Normal Best Language (Describe Picture, Name Items): No Aphasia Dysarthria (Read Several Words): Normal Extinction and Inattention: No Abnormality Total Score: 0 Course/Dx - Course Assessment/Plan: A 68 y/o female brought in by ambulance presents to the ED c/o dizziness. Additionally c/o blurry vision. Currently, the patient feels dizzy ( not room spinning, but feels like she is going to fall). In the ED room, the patient has a pulse of 67 BPM, O2 saturation of 98%, and blood pressure of 202/ 108. As per triage, "pt arrives via [facility] with a complaint of blurred vision lasting a few minutes to left eye. pt reports dizziness as well. states now has a headache. states a month ago leaned to left and called to get help. saw street department dispatcher who said she may be having mini strokes and she needs to see neuro but cant get in till august. is supposed to have echo 03/14/18 as well". According to the patient, she thinks she is having mini-strokes. She stated that this is what her street department dispatcher, Dr. Nava, believes. She saw him a few weeks ago in which he set her up with a neurologist but she cannot get in until August. Some of her symptoms that started all of this was a month ago which include headache and dizziness. Additionally, she experienced right-sided blurry vision. She stated at first, she could sit up, or stand up as she would get dizzy. She came to the ED today because of blurry vision in both eyes when she was at home this morning which lasted 10 minutes. She also experienced dizziness that felt like she was going to fall ("like I took too much to drink") . She then took her BP medications and found that her BP was at first 200/89, then checked again and it was 189/104. Her daughter advised her to go to ED. Patient takes Aspirin and Pradaxa. Blood work without any significant abnormality, urinalysis is negative for UTI. Chest x-ray shows no acute pathology. Head CT impression shows no acute interconnected pathology. In the ED course the patient was given hydralazine for the high blood pressure and now the patient is feeling better. chest x-ray impression; no acute cuddy pulmonary disease. Head CT impression: No acute evidence of acute intracranial abnormality. Patient already took her own aspirin. I discussed my physical exam, findings and test results with Dr. Ochoa from neurology and she recommends for the patient to get a CTA of the head and neck. CTA IMPRESSION: 1. There is calcified atherosclerosis at the bilateral carotid bulbs extending into the. bilateral internal carotid arteries causing 67% degree stenosis on the right and 25%. degree stenosis on the left according to Nascet criteria. 2. There are no large abrupt filling defects of the intracranial arterial vasculature. 3. In the left lobe of the thyroid there is a 6 mm hypoattenuating focus that can be. followed up with non emergency ultrasound if clinically indicated. I discussed the findings with and Dr. Ochoa and she agrees that the patient should be admitted to the hospitalist for better control of blood pressure and possibly a workup for these symptoms. At this point the patient is asymptomatic she continues to be hemodynamically stable with a better control of the blood pressure. I also discussed the case with and Dr. Braswell from the hospital services was accepted the patient for admission. - Diagnoses Provider Diagnoses: Hypertensive urgency, TIA (transient ischemic attack) - Physician Notifications Discussed Care Of Patient With: Sarai Crane Time Discussed With Above Provider: 12:45 Instructed by Provider To: Other - RECOMMENDS CTA SCAN. RECOMMENDS ADMISSION TO HOSPITALIST SERVICES. Discharge - Sign-Out/Discharge Documenting (check all that apply): Patient Departure - ADMIT, Sign-Out Patient - EMILEE Signing out patient TO: Benjamin Braswell Receiving patient FROM: Thaddeus Clayton - Discharge Plan Condition: Stable Disposition: ADMITTED TO [facility] - Billing Disposition and Condition Condition: STABLE Disposition: Admitted to [facility] - Attestation Statements Document Initiated by Scribe: Yes Documenting Scribe: Cody Berumen Provider For Whom Scribe is Documenting (Include Credential): Thaddeus Clayton MD Scribe Attestation: I, Cody Berumen, scribed for Thaddeus Clayton MD on 03/11/18 at 0820. Scribe Documentation Reviewed: Yes Provider Attestation: The documentation as recorded by the scribe, Cody Berumen accurately reflects the service I personally performed and the decisions made by me, Thaddeus Clayton MD Status of Scribe Document: Viewed Attestations Scribe Attestation: I, Dr. Clayton personally performed the services described in this documentation as scribed in my presence and it is both accurate and complete. User Type: Provider with Scribe Provider Attestation: The documentation recorded by the scribe accurately reflects the service I personally performed and the decisions made by me.
--- OUTSIDE RECORDS SUMMARY | 2018-03-10 12:45 | XMS REPORT | Continuity of Care Document ---
:1950 External Reference #:[id number] Author Name [facility] Team Providers Name Role Phone Isidoro Wiseman MD Primary Care Physician Unavailable Payers Type Date Identification Numbers Payment Provider Subscriber Policy Number: [id number] [employer]/[place] Citizen pr Estefany Low PayID: [id number] [address] [address] Attn: [place] [address] Expires: 2014 Policy Number: [id number] Medicare Estefany Low PayID: [id number] [address] [place] [address] Advance Directives Description No Information Available Problems Date Description Provider Status Onset: 12/10/2010 [...] Father Etoh : (age Father due to [place] 64 Years) Mother Heart disease ; at age 82 - Alzheimer's Siblings Brother of heart attack in 2003 Siblings 8 : (age Second Brother due to [place] 42 Years) Maternal Grandmother due to Unknown () - hx of Causes aortic valve replacement Social History Type Date Description Comments Sex Unknown Marital Status Lives With Family Occupation Retired works as needed, private duty nurse Tobacco Use Start: Unknown End: Former Cigarette Smoker Unknown Smoking Status Reviewed: 02/12/18 Former Cigarette Smoker ETOH Use Currently consumes 1 glass red wine alcohol nightly Tobacco Use Start: Unknown End: Patient is a former Unknown smoker Recreational Drug Use Denies Drug Use Exercise Type/Frequency Exercises sporadically Allergies, Adverse Reactions, Alerts Date Description Reaction Status Severity Comments 10/30/2008 Codeine Phosphate Active upset stomach 10/30/2008 Vytorin Active severe joint pain 07/07/2009 Statins muscle pain Active 02/12/2015 Latex Active Medications Medication Date Status Form Strength Qnty SIG Indications Ordering Provider Albuterol Sulfate 02/12 Active Nebulizer (5mg/ML) 30uni 2 puffs 0.5% ts every 4 S. hours as Maghaydah needed sob , M.D. or wheeze Metoprolol 02/12 Active Tablets 100mg take 1 Deann S. Tartrate tablet Foster, twice a N.P. day and take 1/2 tablet as needed for a-fib Magnesium 02/12 Active Tablets 250mg 1 by mouth Juanyb every day Buck Nava M.D. Vitamin D 02/11 Active Tablets 2000Unit by mouth everyday Folplex 2.2 02/11 Active Tablets 2.2-25-0. 1 tablet 5mg daily Aspirin Ec 11/[address] 81mg 30tab 1 by mouth Juantayb s every day Buck Nava M.D. Simvastatin 11/21 Active Tablets 10mg 1 by mouth Qutayb every S. night at [facility] bedtime Valente Klor-Con M20 11/13 Active Tablets ER 20Meq 90tab Take 2 Deann S. s Tablets By Sidney, Mouth In N.P. The Morning And 1 In The Evening Hydrochlorothiazid 10/30 Active Tablets 25mg 30tab 1 po qd Juantaybcollin s Buck Nava M.D. Omeprazole Active Capsules 20mg 30cap [address] s prn Levothyroxine Active Tablets 75mcg 30tab 1 po qd Unknown s Xanax Active Tablets 0.50mg 30tab 3 times s daily prn anxiety Pradaxa Active Capsules 150mg 180ca by mouth ps twice a day Aspirin Ec Active Tablets DR 325mg take 1 tab by mouth every day Metoprolol 04/07 Hx Tablets ER 50mg 2 tabs Deann S. Succinate 24HR twice Foster, - daily. N.P. 04/07 Metoprolol 04/07 Hx Tablets ER 50mg 120ta Take 2 Deann S. Succinate 24HR bs Tablets By Foster, - Mouth N.P. 02/12 Daily Multaq 03/31 Hx Tablets 400mg 180ta 1 by mouth I48.0 bs twice a S. - day Elijah 04/07 Valente /2018 Methotrexate 03/24 Hx Tablets 2.5mg 40tab 8 by mouth 714.0 s on fridays Lalitha Vargas M.D. 05/23 Prednisone 03/24 Hx Tablets 5mg 45tab 1 and one 714.0 s half (7.5 Vargas, - mg) q am M.D. 05/23 for weeks ; then follow taper schedule given in office (Pt reports she is taking 2.5 mg day) Prednisone (Pato) 12/16 Hx Tablets 5mg 45tab 2.5 mg qod 714.0 marty Vargas - M.D. 03/18 Methotrexate 11/13 Hx Tablets 2.5mg 30tab currently 714.0 s on 6 tabs Sam, - every week M.D. 03/24 Prednisone 11/13 Hx Tablets 10mg 30tab daily 714.0 Lalitha Sosa M.D. 12/16 Folic Acid 11/13 Hx Tablets 1mg 30tab 1 by mouth 714.0 s every day Kalie - M.D. 05/23 Simvastatin 06/16 Hx Tablets 20mg 30tab 1 po qd Qutayb s S. - Maghaydah 11/21 , M.D. /2013 Norvasc 01/08 Hx Tablets 5mg 60tab 2 po qd Qutayb s S. - Maghaydah 11/13 , M.D. /2013 Simvastatin 08/28 Hx Tablets 10mg 30tab 1 po qhs Qutayb s S. - Maghaydah 06/16 , M.D. /2010 Lipitor 08/27 Hx Tablets 10mg 30tab 1 po qhs Qutaybeh s S. - Maghaydah 08/28 , M.D. /2009 Asa 10/30 Hx 325mg 90uni 1 po qd Qutaybeh ts S. - Maghaydah 11/18 , M.D. /2014 Lisinopril 10/30 Hx Tablets 5mg 30tab 1 po qd Qutaybeh s S. - Maghaydah 05/14 , M.D. /2009 Klor-Con 10 10/30 Hx Tablets ER 10Meq 30tab 1 po qd Qutaybeh s S. - Maghaydah 11/13 , M.D. Crestor 10/30 Hx Tablets 10mg 30tab 1 po qd [facility] , [facility]. Combgen 10/30 Hx Tablets 2.2-25-0. one po qd [facility] , [facility]. Metoprolol 10/30 Hx Tablets ER 50mg 120ta 2 tabs Qutaybeh Succinate 24HR bs twice S. - [facility]. [facility] , M.D. Folplex Hx Tablets 2.2 90tab 1 po qd Unknown /0000 s - 08/15 Albuterol Inhaler Hx 1unit 2 puffs up Unknown /0000 s to qid prn - 02/06 Hydrocodone/Acetam Hx Tablets 5-500mg 20tab 1 tid prn Unknown inophen /0000 s - 08/04 Gabapentin Hx Capsules 100mg 90cap 1 po tid Unknown /0000 s prn - 11/21 Meloxicam Hx Tablets 7.5mg 30tab 1 by mouth Unknown /0000 s every day - 11/21 Folplex 2.2 Hx Tablets 2.2-25-0. Unknown /0000 5mg - 11/21 Prednisone Hx Tablets 10mg 1 by mouth 714.0 Unknown /0000 every day - 03/24 Vitamin D2 Hx 2000Iu daily Unknown /0000 - 07/25 Xopenex HFA 00/00 Hx 2 puffs Unknown /0000 twice a - day prn 02/06 Magnesium Hx Capsules 500mg once a day Unknown /0000 - 02/12 Ventolin HFA Hx Aerosol 108(90Bas 2 puffs by Unknown /0000 e) mouth four - mcg/Act times a 06/26 day needed Immunizations CPT Code Status Date Vaccine Lot # [id number] Given 02/03/2015 Fluvirin Im 3Yrs And Older Vital Signs Date Vital Result Comment 02/12/2018 9:27am Height 64 inches 5'4" Weight 182.12 lb Heart Rate 70 /min BP Systolic Sitting 136 mmHg lue reg cuff BP Diastolic Sitting 86 mmHg lue reg cuff BMI (Body Mass Index) 31.3 kg/m2 Ejection Fraction 55-60% echo 10/31/14 06/27/2017 3:38pm Height 64 inches 5'4" Weight 181.00 lb w/shoes Heart Rate 66 /min BP Systolic Sitting 126 mmHg L/A Reg Cuff BP Diastolic Sitting 80 mmHg L/A Reg Cuff BMI (Body Mass Index) 31.1 kg/m2 Ejection Fraction 79% Stress Test 06/08/2016 04/26/2017 9:53am Height 64 inches 5'4" Weight 179.00 lb without shoes Heart Rate 66 /min BP Systolic Sitting 120 mmHg Rue lg cuff BP Diastolic Sitting 78 mmHg Rue lg cuff BP Systolic Standing 128 mmHg Rue lg cuff BP Diastolic Standing 80 mmHg Rue lg cuff Respiratory Rate 17 /min BMI (Body Mass Index) 30.7 kg/m2 Ejection Fraction 55-50% date 10/31/14 ECHO 04/07/2017 3:00pm Height 64 inches 5'4" 78 Weight 178.38 lb without shoes Heart Rate 66 /min BP Systolic Sitting 148 mmHg LA, reg cuff BP Diastolic Sitting 88 mmHg LA, reg cuff BMI (Body Mass Index) 30.6 kg/m2 Ejection Fraction 55%-60% echo 10/31/14 03/31/2017 2:01pm Height 64 inches 5'4" 78 Weight 180.75 lb w/o shoes Heart Rate 70 /min BP Systolic Sitting 120 mmHg LA lg cuff BP Diastolic Sitting 88 mmHg LA lg cuff BMI (Body Mass Index) 31.0 kg/m2 Ejection Fraction 55-60% Echo 10/31/14 02/07/2017 3:55pm Height 64 inches 5'4" 78 Weight 178.38 lb with shoes Heart Rate 64 /min BP Systolic Sitting 146 mmHg LA reg cuff BP Diastolic Sitting 96 mmHg LA reg cuff BMI (Body Mass Index) 30.6 kg/m2 01/24/2017 12:58pm Height 64 inches 5'4" 78 Weight 177.00 lb without shoes Heart Rate 68 /min BP Systolic Sitting 125 mmHg LA reg cuff BP Diastolic Sitting 78 mmHg LA reg cuff BMI (Body Mass Index) 30.4 kg/m2 Ejection Fraction 55%-60% 10/31/14 echo 04/12/2016 8:33am Height 64 inches 5'4" 78 Weight 185.50 lb with shoes Heart Rate 66 /min BP Systolic Sitting 138 mmHg LA lrg cuff BP Diastolic Sitting 82 mmHg LA lrg cuff BMI (Body Mass Index) 31.8 kg/m2 Ejection Fraction 55% - 60% echo 10/31/14 05/22/2015 1:43pm Height 64 inches 5'4" 78 Weight 179.00 lb w/o shoes Heart Rate 68 /min reg BP Systolic Sitting 126 mmHg Lue, lg cuff BP Diastolic Sitting 96 mmHg Lue, lg cuff BP Systolic Standing 134 mmHg Lue BP Diastolic Standing 96 mmHg Lue Respiratory Rate 16 /min BMI (Body Mass Index) 30.7 kg/m2 Ejection Fraction 55-60% As of 10/31/14 echo 03/23/2015 2:22pm Height 64 inches 5'4" 78 Weight 177.00 lb Heart Rate 77 /min BP Systolic Sitting 136 mmHg BP Diastolic Sitting 78 mmHg Respiratory Rate 18 /min O2 % BldC Oximetry 97 % BMI (Body Mass Index) 30.4 kg/m2 02/12/2015 1:58pm Height 62 inches 5'2" Weight 179.25 lb Heart Rate 61 /min BP Systolic Sitting 134 mmHg BP Diastolic Sitting 74 mmHg Respiratory Rate 18 /min O2 % BldC Oximetry 97 % BMI (Body Mass Index) 32.8 kg/m2 Neck Circumference in inches 14.5 11/18/2014 3:43pm Height 62 inches 5'2" Weight 180.00 lb w/shoes Heart Rate 70 /min BP Systolic Sitting 138 mmHg LA reg cuff BP Diastolic Sitting 84 mmHg LA reg cuff BMI (Body Mass Index) 32.9 kg/m2 Ejection Fraction 50-55 echo 10/31/14 10/22/2014 11:49am Height 62 inches 5'2" Weight 177.00 lb Heart Rate 64 /min BP Systolic 134 mmHg LA large BP Diastolic 82 mmHg LA large BMI (Body Mass Index) 32.4 kg/m2 Ejection Fraction 55-60% 10/31/13 Nathan 08/15/2014 1:22pm Height 62 inches 5'2" Weight 180.00 lb Heart Rate 60 /min BP Systolic Sitting 130 mmHg BP Diastolic Sitting 80 mmHg Pain Level 7 BMI (Body Mass Index) 32.9 kg/m2 05/23/2014 2:53pm Height 62 inches 5'2" Weight 182.00 lb Heart Rate 60 /min irreg BP Systolic Sitting 136 mmHg BP Diastolic Sitting 80 mmHg Pain Level 6 BMI (Body Mass Index) 33.3 kg/m2 03/24/2014 3:24pm Height 62 inches 5'2" Weight 181.00 lb Heart Rate 70 /min irreg BP Systolic Sitting 122 mmHg BP Diastolic Sitting 82 mmHg Pain Level 1 BMI (Body Mass Index) 33.1 kg/m2 02/20/2014 8:26am Height 62 inches 5'2" Weight 176.00 lb Heart Rate 78 /min BP Systolic 134 mmHg LA reg BP Diastolic 90 mmHg LA reg BMI (Body Mass Index) 32.2 kg/m2 01/27/2014 11:30am Height 62 inches 5'2" Weight 180.25 lb Heart Rate 66 /min BP Systolic Sitting 156 mmHg BP Diastolic Sitting 82 mmHg Pain Level 0 BMI (Body Mass Index) 33.0 kg/m2 12/16/2013 2:37pm Height 62 inches 5'2" Weight 180.00 lb Heart Rate 68 /min BP Systolic Sitting 142 mmHg BP Diastolic Sitting 70 mmHg Pain Level 6 BMI (Body Mass Index) 32.9 kg/m2 11/21/2013 11:49am Height 62 inches 5'2" Weight 177.50 lb Heart Rate 58 /min BP Systolic Sitting 160 mmHg BP Diastolic Sitting 98 mmHg Respiratory Rate 14 /min BMI (Body Mass Index) 32.5 kg/m2 11/13/2013 3:23pm Weight 177.50 lb Heart Rate 60 /min BP Systolic Sitting 120 mmHg BP Diastolic Sitting 80 mmHg Pain Level 8 10/30/2013 1:37pm Height 62 inches 5'2" Weight 176.50 lb Heart Rate 70 /min BP Systolic Sitting 108 mmHg BP Diastolic Sitting 60 mmHg Pain Level 6 BMI (Body Mass Index) 32.3 kg/m2 07/17/2013 3:58pm Height 62 inches 5'2" Weight 181.00 lb Heart Rate 64 /min BP Systolic Sitting 110 mmHg left, reg cuff BP Diastolic Sitting 68 mmHg left, reg cuff BMI (Body Mass Index) 33.1 kg/m2 01/01/2013 3:12pm Height 62 inches 5'2" Weight 176.00 lb Heart Rate 68 /min BP Systolic Sitting 118 mmHg BP Diastolic Sitting 76 mmHg Respiratory Rate 16 /min BMI (Body Mass Index) 32.2 kg/m2 12/12/2012 2:14pm Height 62 inches 5'2" Weight 174.75 lb Heart Rate 56 /min Regular BP Systolic Sitting 122 mmHg BP Diastolic Sitting 74 mmHg BMI (Body Mass Index) 32.0 kg/m2 04/13/2012 2:28pm Height 62 inches 5'2" Weight 168.00 lb Heart Rate 68 /min BP Systolic Sitting 132 mmHg BP Diastolic Sitting 80 mmHg Respiratory Rate 16 /min BMI (Body Mass Index) 30.7 kg/m2 08/05/2011 10:07am Height 62 inches 5'2" Weight 180.00 lb Heart Rate 53 /min BP Systolic 130 mmHg BP Diastolic 86 mmHg BMI (Body Mass Index) 32.9 kg/m2 12/31/2010 11:10am Height 62 inches 5'2" Weight 184.00 lb Heart Rate 56 /min BP Systolic Sitting 134 mmHg L BP Diastolic Sitting 88 mmHg L O2 % BldC Oximetry 97 % BMI (Body Mass Index) 33.7 kg/m2 06/16/2010 9:57am Height 62 inches 5'2" Weight 184.00 lb Heart Rate 57 /min BP Systolic 120 mmHg BP Diastolic 80 mmHg Respiratory Rate 18 /min BMI (Body Mass Index) 33.7 kg/m2 01/08/2010 3:12pm Height 62 inches 5'2" Weight 179.00 lb Heart Rate 59 /min BP Systolic Sitting 140 mmHg BP Diastolic Sitting 90 mmHg BMI (Body Mass Index) 32.7 kg/m2 05/14/2009 3:15pm Weight 182.00 lb Heart Rate 60 /min BP Systolic Sitting 120 mmHg BP Diastolic Sitting 82 mmHg Respiratory Rate 16 /min 10/30/2008 10:31am Height 61 inches 5'1" Weight 177.00 lb Heart Rate 69 /min BP Systolic Sitting 120 mmHg L BP Diastolic Sitting 90 mmHg L BMI (Body Mass Index) 33.4 kg/m2 Results Test Date Facility Test Result H/L Range Note Order 06/27/2017 [employer] In-House EKG <pending> Basic Metabolic 04/26/2017 [facility] Sodium 139 mmol/L N 133- [address] [place] [address] [phone] Potassium 3.6 mmol/L N 3.5-5.0 Chloride 103 mmol/L N 101-111 Co2 Carbon Dioxide 29 mmol/L N 22-32 Anion Gap 7 mmol/L N 2-11 Glucose 83 mg/dL N 70-100 Blood Urea Nitrogen 21 mg/dL N 6-24 Creatinine 0.91 mg/dL N 0.51-0.95 BUN/Creatinine Ratio 23.1 High 8-20 Calcium 9.6 mg/dL N 8.6-10.3 Egfr Non- 61.9 >60 Egfr 79.5 >60 1 Laboratory test 04/26/2017 [facility] Magnesium 2.0 mg/dL N 1.9-2.7 finding [address] [place] [address] [phone] Basic Metabolic 04/05/2017 [facility] Sodium 139 mmol/L N 133- 145 Panel [address] [place] [address] [phone] Potassium 3.7 mmol/L N 3.5-5.0 Chloride 103 mmol/L N 101-111 Co2 Carbon Dioxide 29 mmol/L N 22-32 Anion Gap 7 mmol/L N 2-11 Glucose 82 mg/dL N 70-100 Blood Urea Nitrogen 22 mg/dL N 6-24 Creatinine 1.08 mg/dL High 0.51-0.95 BUN/Creatinine Ratio 20.4 High 8-20 Calcium 9.7 mg/dL N 8.6-10.3 Egfr Non- 50.8 >60 Egfr 65.3 >60 2 Laboratory test 04/05/2017 [facility] Magnesium 2.3 mg/dL N 1.9-2.7 finding [address] [place] [address] [phone] Laboratory test 03/17/2017 [facility] Troponin-I 0.00 ng/mL < 0.04 finding [facility] (TnI) [place] [address] [phone] Laboratory test 03/17/2017 [facility] Troponin-I 0.00 ng/mL < 0.[address] [place] [address] (TnI) [place] [address] [phone] Urinalysis 03/17/2017 [facility] Urine Color Straw Profile [address] [place] [address] [phone] Urine Appearance Clear Urine Specific [place] 1.006 Low 1.010-1.030 Urine pH 7.0 N 5-9 Urine Urobilinogen Negative Negative Urine Ketones Negative Negative Urine Protein Negative Negative Urine Leukocytes Negative Negative Urine Blood 1+ Abnormal Negative Urine Nitrite Negative Negative Urine Bilirubin Negative Negative Urine Glucose Negative Negative Urine White Blood Cell Absent Absent Urine Red Blood Cell Trace(0-2/hpf) Absent Urine Bacteria Absent Absent Urine Squamous Epithelial Cell Present Abnormal Absent CBC Auto Diff 03/17/2017 [facility] White Blood 5.4 10^3/uL N 3.5-10.[address] [place] [address] [phone] Red Blood Count 4.89 10^6/uL N 4.0-5.4 Hemoglobin 13.9 g/dL N 12.0-16.0 Hematocrit 41 % N 35-47 Mean Corpuscular Volume 84 fL N 80-97 Mean Corpuscular Hemoglobin 29 pg N 27-31 Mean Corpuscular HGB Conc 34 g/dL N 31-36 Red Cell Distribution Width 14 % N 10.5-15 Platelet Count 169 10^3/uL N 150-450 Mean Platelet Volume 9 um3 N 7.4-10.4 Abs Neutrophils 3.1 10^3/uL N 1.5-7.7 Abs Lymphocytes 1.5 10^3/uL N 1.0-4.8 Abs Monocytes 0.6 10^3/uL N 0-0.8 Abs Eosinophils 0.2 10^3/uL N 0-0.6 Abs Basophils 0 10^3/uL N 0-0.2 Abs Nucleated RBC 0 10^3/uL Granulocyte % 57.1 % N 38-83 Lymphocyte % 28.0 % N 25-47 Monocyte % 10.2 % High 1-9 Eosinophil % 4.2 % N 0-6 Basophil % 0.5 % N 0-2 Nucleated Red Blood Cells % 0 Inr/Protime 03/17/2017 [facility] Inr 1.09 High 0.77-1.[address] [place] [address] [phone] Laboratory test 03/17/2017 [facility] Partial 43.2 High 26.0- 36.[address] [place] [address] Time PTT [phone] D Dimer Quantitative < 200 ng/mL N Less Than 230 3 Lactic Acid 1.5 mmol/L N 0.5-2.0 4 B-Type Natriuretic Peptide BNP 106 pg/mL High 5 Comp Metabolic Panel 03/17/2017 [facility] Sodium 140 mmol/L N 133-145 [address] [place] [address] [phone] Potassium 3.6 mmol/L N 3.5-5.0 Chloride 109 mmol/L N 101-111 Co2 Carbon Dioxide 25 mmol/L N 22-32 Anion Gap 6 mmol/L N 2-11 Glucose 93 mg/dL N 70-100 Blood Urea Nitrogen 14 mg/dL N 6-24 Creatinine 0.79 mg/dL N 0.51-0.95 BUN/Creatinine Ratio 17.7 N 8-20 Calcium 9.2 mg/dL N 8.6-10.3 Total Protein 6.7 g/dL N 6.4-8.9 Albumin 3.7 g/dL N 3.2-5.2 Globulin 3.0 g/dL N 2-4 Albumin/Globulin Ratio 1.2 N 1-3 Total Bilirubin 0.60 mg/dL N 0.2-1.0 Alkaline Phosphatase 79 U/L N 34-104 Alt 18 U/L N 7-52 Ast 22 U/L N 13-39 Egfr Non- 72.8 >60 Egfr 93.6 >60 6 Laboratory test 03/17/2017 [facility] Thyroxine 8.81 g/mL N 6.09-12.23 finding [address] [place] [address] [phone] TSH (Thyroid Stim Horm) 1.15 mcIU/mL N 0.34-5.60 CKMB 03/17/2017 [facility] CKMB ng/mL 1.4 ng/mL N 0.6-6.3 [address] [place] [address] [phone] Laboratory test 03/17/2017 [facility] Magnesium 1.9 mg/dL N 1.9-2.7 finding [place] [address] [phone] Creatine Kinase(CK) 74 U/L N 10-223 Troponin-I (TnI) 0.00 ng/mL <0.04 CBC Auto Diff 08/12/2014 [facility] White Blood 5.5 10^3/uL N 4.8-10.[address] [place] [address] [phone] Red Blood Count 4.94 10^6/uL N 4.0-5.4 Hemoglobin 13.6 g/dL N 12.0-16.0 Hematocrit 41 % N 35-47 Mean Corpuscular Volume 83 fL N 80-97 Mean Corpuscular Hemoglobin 28 pg N 27-31 Mean Corpuscular HGB Conc 33 g/dL N 31-36 Red Cell Distribution Width 14 % N 10.5-15 Platelet Count 176 10^3/uL N 150-450 Mean Platelet Volume 9 um3 N 7.4-10.4 Abs Neutrophils 3.2 10^3/uL N 1.5-7.7 Abs Lymphocytes 1.6 10^3/uL N 1.0-4.8 Abs Monocytes 0.5 10^3/uL N 0-0.8 Abs Eosinophils 0.2 10^3/uL N 0-0.6 Abs Basophils 0.1 10^3/uL N 0-0.2 Abs Nucleated RBC 0.01 10^3/uL N Granulocyte % 57.7 % N 38-83 Lymphocyte % 28.7 % N 25-47 Monocyte % 8.8 % N 1-9 Eosinophil % 3.8 % N 0-6 Basophil % 1.0 % N 0-2 Nucleated Red Blood Cells % 0.1 N Comp Metabolic Panel 08/12/2014 [facility] Sodium 138 mmol/L N 133-[address] [place], [place] [id number] [phone] Potassium 3.9 mmol/L N 3.5-5.0 Chloride 104 mmol/L N 101-111 Co2 Carbon Dioxide 29 mmol/L N 22-32 Anion Gap 5 mmol/L N 2-11 Glucose 93 mg/dL N 70-100 Blood Urea Nitrogen 16 mg/dL N 6-24 Creatinine 0.89 mg/dL N 0.51-0.95 BUN/Creatinine Ratio 18.0 N 8-20 Calcium 9.4 mg/dL N 8.6-10.3 Total Protein 6.6 g/dL N 6.4-8.9 Albumin 4.0 g/dL N 3.2-5.2 Globulin 2.6 g/dL N 2-4 Albumin/Globulin Ratio 1.5 N 1-3 Total Bilirubin 0.80 mg/dL N 0.2-1.0 Alkaline Phosphatase 83 U/L N 34-104 Alt 18 U/L N 7-52 Ast 23 U/L N 13-39 Egfr Non- 64.1 N >60 Egfr 82.4 N >60 7 Laboratory test 08/12/2014 [facility] Erythrocyte Sed 20 mm/Hr N 0-[address] [place] [address] [phone] C Reactive Protein 1.13 mg/L N < 5.00 8 Rheumatoid Factor <15 IU/mL N <15 9 Cyclic Citrullinated Pep Igg 17.8 U N 10 CBC Auto Diff 05/19/2014 [facility] White Blood 6.2 10^3/uL N 4.8-10.[address] [place] [address] [phone] Red Blood Count 4.48 10^6/uL N 4.0-5.4 Hemoglobin 13.2 g/dL N 12.0-16.0 Hematocrit 40 % N 35-47 Mean Corpuscular Volume 88 fL N 80-97 Mean Corpuscular Hemoglobin 30 pg N 27-31 Mean Corpuscular HGB Conc 33 g/dL N 31-36 Red Cell Distribution Width 16 % High 10.5-15 Platelet Count 170 10^3/uL N 150-450 Mean Platelet Volume 9 um3 N 7.4-10.4 Abs Neutrophils 4.2 10^3/uL N 1.5-7.7 Abs Lymphocytes 1.3 10^3/uL N 1.0-4.8 Abs Monocytes 0.4 10^3/uL N 0-0.8 Abs Eosinophils 0.2 10^3/uL N 0-0.6 Abs Basophils 0.1 10^3/uL N 0-0.2 Abs Nucleated RBC 0 10^3/uL N Granulocyte % 67.5 % N 38-83 Lymphocyte % 21.4 % Low 25-47 Monocyte % 6.7 % N 1-9 Eosinophil % 3.5 % N 0-6 Basophil % 0.9 % N 0-2 Nucleated Red Blood Cells % 0 N Comp Metabolic Panel 05/19/2014 [facility] Sodium 137 mmol/L N 133-[address] [place] [address] [phone] Potassium 3.2 mmol/L Low 3.5-5.0 Chloride 100 mmol/L Low 101-111 Co2 Carbon Dioxide 30 mmol/L N 22-32 Anion Gap 7 mmol/L N 2-11 Glucose 96 mg/dL N 70-100 Blood Urea Nitrogen 17 mg/dL N 6-24 Creatinine 0.90 mg/dL N 0.51-0.95 BUN/Creatinine Ratio 18.9 N 8-20 Calcium 9.6 mg/dL N 8.6-10.3 Total Protein 6.7 g/dL N 6.4-8.9 Albumin 4.1 g/dL N 3.2-5.2 Globulin 2.6 g/dL N 2-4 Albumin/Globulin Ratio 1.6 N 1-3 Total Bilirubin 0.80 mg/dL N 0.2-1.0 Alkaline Phosphatase 66 U/L N 34-104 Alt 23 U/L N 7-52 Ast 25 U/L N 13-39 Egfr Non- 63.2 N >60 Egfr 81.3 N >60 11 Laboratory test 05/19/2014 [facility] Erythrocyte Sed 10 mm/Hr N 0-[address] [place] [address] [phone] C Reactive Protein 1.40 mg/L N < 5.00 12 CBC Auto Diff 01/27/2014 [facility] White Blood 7.1 10^3/uL N 4.8-10.[address] [place] [address] [phone] Red Blood Count 4.34 10^6/uL N 4.0-5.4 Hemoglobin 12.6 g/dL N 12.0-16.0 Hematocrit 38 % N 35-47 Mean Corpuscular Volume 88 fL N 80-97 Mean Corpuscular Hemoglobin 29 pg N 27-31 Mean Corpuscular HGB Conc 33 g/dL N 31-36 Red Cell Distribution Width 16 % High 10.5-15 Platelet Count 193 10^3/uL N 150-450 Mean Platelet Volume 9 um3 N 7.4-10.4 Abs Neutrophils 4.3 10^3/uL N 1.5-7.7 Abs Lymphocytes 2.1 10^3/uL N 1.0-4.8 Abs Monocytes 0.5 10^3/uL N 0-0.8 Abs Eosinophils 0.2 10^3/uL N 0-0.6 Abs Basophils 0.1 10^3/uL N 0-0.2 Abs Nucleated RBC 0.01 10^3/uL N Granulocyte % 60.2 % N 38-83 Lymphocyte % 29.0 % N 25-47 Monocyte % 7.1 % N 1-9 Eosinophil % 2.8 % N 0-6 Basophil % 0.9 % N 0-2 Nucleated Red Blood Cells % 0.1 N Comp Metabolic Panel 01/27/2014 [facility] Sodium 141 mmol/L N 133-[address] [place] [address] [phone] Potassium 3.3 mmol/L Low 3.5-5.0 13 Chloride 104 mmol/L N 101-111 Co2 Carbon Dioxide 31 mmol/L N 22-32 Anion Gap 6 mmol/L N 2-11 Glucose 83 mg/dL N 70-100 Blood Urea Nitrogen 17 mg/dL N 6-24 Creatinine 0.87 mg/dL N 0.51-0.95 BUN/Creatinine Ratio 19.5 N 8-20 Calcium 9.5 mg/dL N 8.6-10.3 Total Protein 6.3 g/dL Low 6.4-8.9 Albumin 4.0 g/dL N 3.2-5.2 Globulin 2.3 g/dL N 2-4 Albumin/Globulin Ratio 1.7 N 1-3 Total Bilirubin 0.60 mg/dL N 0.2-1.0 Alkaline Phosphatase 61 U/L N 34-104 Alt 21 U/L N 7-52 Ast 21 U/L N 13-39 Egfr Non- 66.0 N >60 Egfr 84.8 N >60 14 CBC Auto Diff 12/16/2013 [facility] White Blood 8.2 10^3/uL N 4.8-10.[address] [place] [address] [phone] Red Blood Count 4.34 10^6/uL N 4.0-5.4 Hemoglobin 12.6 g/dL N 12.0-16.0 Hematocrit 37 % N 35-47 Mean Corpuscular Volume 86 fL N 80-97 Mean Corpuscular Hemoglobin 29 pg N 27-31 Mean Corpuscular HGB Conc 34 g/dL N 31-36 Red Cell Distribution Width 15 % N 10.5-15 Platelet Count 193 10^3/uL N 150-450 Mean Platelet Volume 9 um3 N 7.4-10.4 Abs Neutrophils 6.5 10^3/uL N 1.5-7.7 Abs Lymphocytes 1.4 10^3/uL N 1.0-4.8 Abs Monocytes 0.3 10^3/uL N 0-0.8 Abs Eosinophils 0 10^3/uL N 0-0.6 Abs Basophils 0 10^3/uL N 0-0.2 Abs Nucleated RBC 0 10^3/uL N Granulocyte % 78.4 % N 38-83 Lymphocyte % 16.6 % Low 25-47 Monocyte % 4.0 % N 1-9 Eosinophil % 0.5 % N 0-6 Basophil % 0.5 % N 0-2 Nucleated Red Blood Cells % 0 N Comp Metabolic Panel 12/16/2013 [facility] Sodium 137 mmol/L N 133-[address] [place] [address] [phone] Potassium 3.7 mmol/L N 3.7-5.6 Chloride 101 mmol/L N 101-111 Co2 Carbon Dioxide 30 mmol/L N 22-32 Anion Gap 6 mmol/L N 2-11 Glucose 97 mg/dL N 70-100 Blood Urea Nitrogen 17 mg/dL N 6-24 Creatinine 0.94 mg/dL N 0.51-0.95 BUN/Creatinine Ratio 18.1 N 8-20 Calcium 9.3 mg/dL N 8.6-10.3 Total Protein 6.6 g/dL N 6.4-8.9 Albumin 3.9 g/dL N 3.2-5.2 Globulin 2.7 g/dL N 2-4 Albumin/Globulin Ratio 1.4 N 1-3 Total Bilirubin 0.50 mg/dL N 0.2-1.0 Alkaline Phosphatase 66 U/L N 34-104 Alt 22 U/L N 7-52 Ast 20 U/L N 13-39 Egfr Non- 60.3 N >60 Egfr 77.6 N >60 15 Laboratory test 11/13/2013 [facility] (Anti-Nuclear AB) Negative N Negative finding Screen CBC Auto Diff 11/13/2013 White Blood Count 6.1 10^3/uL N 4.8-10.8 Red Blood Count 4.47 10^6/uL N 4.0-5.4 Hemoglobin 12.9 g/dL N 12.0-16.0 Hematocrit 38 % N 35-47 Mean Corpuscular Volume 84 fL N 80-97 Mean Corpuscular Hemoglobin 29 pg N 27-31 Mean Corpuscular HGB Conc 34 g/dL N 31-36 Red Cell Distribution Width 14 % N 10.5-15 Platelet Count 175 10^3/uL N 150-450 Mean Platelet Volume 8 um3 N 7.4-10.4 Abs Neutrophils 4.0 10^3/uL N 1.5-7.7 Abs Lymphocytes 1.4 10^3/uL N 1.0-4.8 Abs Monocytes 0.4 10^3/uL N 0-0.8 Abs Eosinophils 0.2 10^3/uL N 0-0.6 Abs Basophils 0.1 10^3/uL N 0-0.2 Abs Nucleated RBC 0 10^3/uL N Granulocyte % 65.5 % N 38-83 Lymphocyte % 23.3 % Low 25-47 Monocyte % 6.8 % N 1-9 Eosinophil % 3.4 % N 0-6 Basophil % 1.0 % N 0-2 Nucleated Red Blood Cells % 0.1 N Comp Metabolic Panel 11/13/2013 Sodium 140 mmol/L N 133-145 Potassium 3.3 mmol/L Low 3.7-5.6 Chloride 102 mmol/L N 101-111 Co2 Carbon Dioxide 29 mmol/L N 22-32 Anion Gap 9 mmol/L N 2-11 Glucose 88 mg/dL N 70-100 Blood Urea Nitrogen 12 mg/dL N 6-24 Creatinine 0.90 mg/dL N 0.51-0.95 BUN/Creatinine Ratio 13.3 N 8-20 Calcium 9.5 mg/dL N 8.6-10.3 Total Protein 7.0 g/dL N 6.4-8.9 Albumin 4.1 g/dL N 3.2-5.2 Globulin 2.9 g/dL N 2-4 Albumin/Globulin Ratio 1.4 N 1-3 Total Bilirubin 0.70 mg/dL N 0.2-1.0 Alkaline Phosphatase 86 U/L N 34-104 Alt 18 U/L N 7-52 Ast 22 U/L N 13-39 Egfr Non- 63.4 N >60 Egfr 81.6 N >60 16 Laboratory test finding 11/13/2013 CRP High Sensitivity 21.79 mg/L N 17 Cyclic Citrullinated Pept IgG <15.6 U N 18 Erythrocyte Sed Rate 47 mm/Hr High 0-30 Hepatitis B Surface Antigen Nonreactive N Nonreactive Hepatitis C Antibody Nonreactive N Nonreactive Rheumatoid Factor <15 IU/mL N <15 19 Basic Metabolic Panel 11/06/2008 [facility] Sodium 140 mmol/L 135-[address] [place] [address] [phone] Potassium 4.0 mmol/L 3.5-5.0 Chloride 104 mmol/L 101-111 Co2 (Carbon Dioxide) 29.0 mmol/L 22-32 Anion Gap 7.0 mmol/L 2-11 21 Glucose 86 mg/dL 70-100 22 BUN 7 mg/dL 6-24 Creatinine 0.90 mg/dL 0.50-1.40 One Over Creatinine 1.10 BUN/Creatinine Ratio 7.8 Low 8-20 Calcium 9.5 mg/dL 8.1-9.9 23 eGFR Non- 68.6 > 60 eGFR 83.0 > 60 24 Lipid Profile 11/06/2008 [facility] Triglyceride 101 mg/dL 40 -200 (Trig/Chol/HDL) [address] [place] [address] [phone] Cholesterol 141 mg/dL Less Than 200 25 High Density Lipoprotein 40 mg/dL 40-60 26 Cholesterol/HDL Ratio 3.53 AVERAGE 1-4.44 Low Density Lipoprotein 81 mg/dL Less Than 100 27 Laboratory test 11/06/2008 [facility] CPK (Creatine 116 U/L 0 -[address] Kinase) [place] [address] [phone] 1 Because ethnic data is not always [...] 5 Kidney failure <15 (or dialysis) 2 Because ethnic data is not always readily [...] 15-29 5 Kidney failure <15 (or dialysis) 3 Please note: The following may produce a false positive D Dimer test: - Rheumatoid factor greater than 60 IU/ml - Plasma hemoglobin greater than 0.05 gm/dl - Bilirubin greater than 50 mg/dl - Lipids greater than 1000 mg/dl - FDP greater than 20 ug/ml 4 [place] Severe Sepsis and Septic Shock Management Bundle Measure requires all lactic acids initially measuring >2.0 mmol/L be repeated. 5 >100 to <200 pg/mL: likely compensated congestive heart failure (CHF) 200 to 400 pg/mL: likely moderate CHF >400 pg/mL: likely moderate to severe CHF 6 Because ethnic data is not always readily [...] 15-29 5 Kidney failure <15 (or dialysis) 7 Because ethnic data is not always readily [...] 15-29 5 Kidney failure <15 (or dialysis) 8 Acute inflammation: >10.00 9 Test Performed by: [place] [address] Fiscal Services Director: Umang Trejo II, M.D., Ph.D. 10 REFERENCE VALUE <20.0 (Negative) Test Performed by: [place] [address] Fiscal Services Director: Umang Trejo II, M.D., Ph.D. 11 Because ethnic data is not always readily [...] 15-29 5 Kidney failure <15 (or dialysis) 12 Acute inflammation: >10.00 13 Potassium reference range changed effective 01/05/14 14 Because ethnic data is not always readily [...] 15-29 5 Kidney failure <15 (or dialysis) 15 Because ethnic data is not always readily [...] 15-29 5 Kidney failure <15 (or dialysis) 16 Because ethnic data is not always readily [...] 15-29 5 Kidney failure <15 (or dialysis) 17 Low risk: <1.00 Average risk: 1.00-3.00 High risk: >3.00 18 -- REFERENCE VALUE -- <20.0 (Negative) Test Performed by: [place] [address] Fiscal Services Director: Ken Bradley III, M.D. 19 Test Performed by: [place] [address] Fiscal Services Director: Ken Bradley III, M.D. 20 FASTING 21 Anion gap measurement may be of limited value in the presence of any alkalosis, especially in a combined acid base disorder. . 22 Note change in reference range as of 10/25/07. The change was based on recommendations from the [place] [employer]. 23 Please note change in reference range effective 07 . 24 Because ethnic data is not always readily [...] 15-29 5 Kidney failure <15 (or dialysis) 25 CHOLESTEROL INTERPRETATION: Desirable: Less than 200 MG/DL Borderline-High Risk: 200-239 MG/DL High-Risk: 240 MG/DL and over 26 HDL INTERPRETATION: Undesirable: High Risk: Less than 40 MG/DL Desirable: Low Risk: Greater than 60 MG/DL 27 LDL INTERPRETATION: Low Risk Optimal Level: LDL Less than 100 MG/DL Near or Above Optimal: LDL 100-129 MG/DL Borderline High Risk: LDL 130-159 MG/DL High Risk: LDL 160-189 MG/DL Very High Risk: LDL Greater than 189 MG/DL Procedures Date Code Description Status 02/12/2018 02379 EKG Tracing & Interpretation Completed 06/27/2017 82593 EKG Tracing & Interpretation Completed 04/26/2017 98641 EKG Tracing & Interpretation Completed 04/07/2017 42155 EKG Tracing & Interpretation Completed 03/31/2017 72976 EKG Tracing & Interpretation Completed 02/07/2017 15059 EKG Tracing & Interpretation Completed 01/25/2017 69868 Moderate Sedation Services; Same Phys Intl 15 Mins; PT >=5 Completed Years 01/25/2017 57117 EKG, Interpretation Only Completed 01/25/2017 58372 Cardioversion Completed 01/24/2017 82324 EKG Tracing & Interpretation Completed 06/08/2016 28455 Treadmill Interp/Report Only Completed 06/08/2016 88902 Stress Test Supervsn W/Out I/R Completed 04/12/2016 71116 EKG Tracing & Interpretation Completed 07/27/2015 97017 EKG Tracing & Interpretation Completed 05/22/2015 79490 EKG Tracing & Interpretation Completed 02/24/2015 60787 Polysomnography Sleep Staging 4+ Parameters Completed 11/12/2014 27642 Holter Monitor Review (24 hr)dr review & interp only Completed 11/12/2014 17014 ECG Monitor/Recording W/Visual Superimposition Scanning Completed 11/11/2014 74638 Holter Monitor Review (24 hr)dr review & interp only Completed 11/11/2014 98586 ECG Monitor/Recording W/Visual Superimposition Scanning Completed 10/31/2014 31580 ECHO Transthoracic, Real-Time 2D With Doppler And Color Completed Flow 10/22/2014 53804 EKG Tracing & Interpretation Completed 02/20/2014 41199 EKG Tracing & Interpretation Completed 11/25/2013 95162 Holter Monitor Review (24 hr)dr review & interp only Completed 11/21/2013 92404 EKG Tracing & Interpretation Completed 10/31/2013 55494 Cardioversion Completed 10/31/2013 71329 EKG, Interpretation Only Completed 10/31/2013 65989 Echocardiography, Transesophageal, Real Time W/Image 2D Completed W/W/O M-M 10/31/2013 72533 Echocardiography, Transesophageal, Real Time W/Image 2D Completed W/W/O M-M 10/31/2013 10121 Pulse Wave/Continuous-Interp.RPT Completed 10/31/2013 27516 Pulse Wave/Continuous-Interp.RPT Completed 10/31/2013 38484 Color Flow Doppler/Interp & Reprt Completed 10/31/2013 63144 Color Flow Doppler/Interp & Reprt Completed 10/30/2013 29308 EKG Tracing & Interpretation Completed 07/17/2013 92241 EKG Tracing & Interpretation Completed 12/24/2012 30014 Left Health Catheterization W/Inj For Left Completed Ventriculography,S&I 12/24/2012 61556 Cath PLMT&NJX L Ventriculog Img S&I Completed 12/24/2012 68357 Left Heart Cath. Incl S/I Coronaries, Angio S/I V Gram If Completed Done 12/24/2012 56039 Intravascular Blood Flow Velocity Completed 12/22/2012 52512 Treadmill Interp/Report Only Completed 12/22/2012 46414 Stress Test Supervsn W/Out I/R Completed 12/22/2012 16067 EKG, Interpretation Only Completed 12/12/2012 15295 EKG Tracing & Interpretation Completed 04/13/2012 28984 EKG Tracing & Interpretation Completed 08/05/2011 34187 EKG Tracing & Interpretation Completed 12/31/2010 57764 EKG Tracing & Interpretation Completed 12/10/2010 55356 EKG, Interpretation Only Completed 12/10/2010 88901 Stress Test Supervsn W/Out I/R Completed 12/10/2010 51669 Treadmill Interp/Report Only Completed 06/16/2010 33529 EKG Tracing & Interpretation Completed 06/09/2010 27864 Left Heart Cath. Incl S/I Coronaries, Angio S/I V Gram If Completed Done 06/09/2010 02389 Cath PLMT&NJX L Ventriculog Img S&I Completed 06/07/2010 42722 Treadmill Interp/Report Only Completed 06/07/2010 11105 Stress Test Supervsn W/Out I/R Completed 06/06/2010 38766 EKG, Interpretation Only Completed 06/06/2010 22448 ECHO Transthorasic Realtime 2D W Doppler & Color Flow Hosp Completed 06/06/2010 15032 Pulse Wave/Continuous-Interp.RPT Completed 06/06/2010 32034 Color Flow Doppler/Interp & Reprt Completed 01/08/2010 31723 EKG Tracing & Interpretation Completed 05/14/2009 97926 EKG Tracing & Interpretation Completed 04/21/2009 27567 ECHO Transthorasic Realtime 2D W Doppler & Color Flow Hosp Completed 10/30/2008 70739 EKG Tracing & Interpretation Completed 06/01/2008 38870 Treadmill Interp/Report Only Completed 06/01/2008 39105 Stress Test Supervsn W/Out I/R Completed Encounters Type Date Location Provider Dx Diagnosis Office Visit 06/27/2017 [facility] Qutaybeh S. I48.0 Paroxysmal atrial 4:00p Of Parts Casting Machine Operator AT [facility] Valente Nava fibrillation I25.118 Athscl heart disease of [place] cor art w [facility] ang pctrs I10 Essential (primary) hypertension E78.4 Other hyperlipidemia R94.31 Abnormal electrocardiogram [ECG] [EKG] Office Visit 04/26/2017 10:30a [facility] Deann S. I48.0 Paroxysmal atrial Of [employer] Casting Machine Operator Foster, N.P. 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 ang pctrs I10 Essential (primary) hypertension E78.4 Other hyperlipidemia Office Visit 04/07/2017 3:00p [facility] Deann S. I48.0 Paroxysmal atrial Foster, N.P. fibrillation I71.4 Abdominal aortic aneurysm, without rupture I25.118 Athscl heart disease of [place] cor art w ot ang pctrs I10 Essential (primary) hypertension E78.4 Other hyperlipidemia Office Visit 03/31/2017 [place] Qutaybeh S. I48.0 Paroxysmal atrial 2:20p Rosette Nava M.D. fibrillation I71.4 Abdominal aortic aneurysm, without rupture I25.118 Athscl heart disease of [place] cor art w ot ang pctrs I10 Essential (primary) hypertension E78.4 Other hyperlipidemia Office Visit 03/18/2017 [facility] Ofe Pooja I48.91 Unspecified 2:36p Assoc,pc Shalom, SCHEDULING AGENT atrial Hospitalists fibrillation I71.4 Abdominal aortic aneurysm, without rupture I25.118 Athscl heart disease of [place] cor art w ot ang pctrs Office Visit 03/17/2017 [facility] Tammy I48.91 Unspecified atrial 2:36p Assoc,pc Rebecca, fibrillation Hospitalists I71.4 Abdominal aortic aneurysm, without rupture I25.118 Athscl heart disease of [place] cor art w [facility] ang pctrs Office Visit 02/07/2017 [place] Qutaybeh S. I48.0 Paroxysmal atrial 4:20p Rosette Nava M.D. fibrillation I25.10 Athscl heart disease of [place] coronary artery w/o ang pctrs I10 Essential (primary) hypertension Office Visit 01/25/2017 [facility] Coleen I48.0 Paroxysmal atrial 3:17p Assocnoelle M.D. fibrillation Hospitalists Office Visit 01/24/2017 [facility] Coleen I48.0 Paroxysmal atrial 3:16p Assnoelle murray M.D. fibrillation Hospitalists Office Visit 01/24/2017 [facility] Qutaybeh S. I25.10 Athscl heart 1:20p Maghaydah, disease of [place] M.D. coronary artery w/o ang pctrs I10 Essential (primary) hypertension I48.91 Unspecified atrial fibrillation E78.4 Other hyperlipidemia R00.0 Tachycardia, unspecified R94.31 Abnormal electrocardiogram [ECG] [EKG] Office Visit 06/08/2016 11:09a [facility] Benjamin M54.9 Dorsalgia, Assocnoelle M.D. unspecified Hospitalists R07.89 Other chest pain Office Visit 06/07/2016 11:07a [facility] Coleen M54.9 Dorsalgia, Assoc,noelle Arango M.D. unspecified Hospitalists R07.89 Other chest pain Office Visit 04/12/2016 9:00a [facility] Qutaybeh S. I25.10 Athscl heart Valente Nava disease of [place] coronary artery w/o ang pctrs I10 Essential (primary) hypertension I48.91 Unspecified atrial fibrillation E78.4 Other hyperlipidemia Z01.810 Encounter for preprocedural cardiovascular examination M75.102 Unsp rotatr-cuff tear/ruptr of left shoulder, not trauma R94.31 Abnormal electrocardiogram [ECG] [EKG] Office Visit 07/27/2015 Lexis Santoro S. I48.91 Unspecified atrial 9:40a Cardiology Valente Nava fibrillation I25.10 Athscl heart disease of [place] coronary artery w/o ang pctrs I10 Essential (primary) hypertension I49.1 Atrial premature depolarization Office Visit 05/22/2015 Leeann Santoro S. I48.91 Unspecified atrial 2:00p Cardiology Sulema Nava M.D. fibrillation Parts Casting Machine Operator I25.10 Athscl heart disease of [place] coronary artery w/o ang pctrs I10 Essential (primary) hypertension Office Visit 03/23/2015 2:30p [facility] Sleep Maddy Rosales, R06.83 Snoring Services Of [facility] E66.09 Other obesity due to excess calories Office Visit 02/12/2015 2:00p Pulmonology And Maddy G47.9 Sleep disorder, Sleep Services Of MD Bobby unspecified [facility] I48.91 Unspecified atrial fibrillation K21.9 Gastro-esophageal reflux disease without esophagitis E66.09 Other obesity due to excess calories Office Visit 11/18/2014 3:00p [facility] LOGAN Carr 785.1 Palpitations 414.00 Coronary Atherosclerosis Unspec Type Vessel [place]/Graft 401.9 Hypertension Unspec 786.05 Shortness Of Breath 427.31 Atrial Fibrillation 427.61 Premature Beats Supraventricular Office Visit 10/22/2014 Lexis Santoro SCesar 414.00 Coronary 12:00p Cardiology Valente Nava Atherosclerosis Unspec Type Vessel [place]/Graft 401.9 Hypertension Unspec 785.1 Palpitations 780.79 Malaise And Fatigue Other Office Visit 08/15/2014 1:20p Rheumatology Dennis Jade, 338.4 Chronic Pain Services Of Felisha Victor Syndrome 715.09 Osteoarthrosis Generalized Multiple Sites 714.0 Rheumatoid Arthritis V58.69 Medications Usp (Current) Use Encounter Office Visit 05/23/2014 2:40p Rheumatology Dennis Jade, 714.0 Rheumatoid Services Of Parts Casting Machine Operator MarianaBibi Arthritis V58.69 Medications Usp (Current) Use Encounter 338.4 Chronic Pain Syndrome 715.09 Osteoarthrosis Generalized Multiple Sites Office Visit 03/24/2014 Rheumatology Miguel Vargas, 714.0 Rheumatoid 3:40p Services Of Felisha Victor Arthritis Office Visit 02/20/2014 [facility] Yvan Jane 427.31 Atrial 8:40a Viviane Nava M.D. 414.00 Coronary Atherosclerosis Unspec Type Vessel [place]/Graft 401.9 Hypertension Unspec 401.1 Hypertension Benign 780.79 Malaise And Fatigue Other Office Visit 01/27/2014 11:40a Rheumatology Miguel Vargas 714.0 Rheumatoid Services Of Felisha Victor Arthritis Office Visit 12/16/2013 3:00p Rheumatology Miguel Vargas, 714.0 Rheumatoid Services Of Felisha Victor Arthritis 714.0 Rheumatoid Arthritis Office Visit 11/21/2013 [place] Yvan Jane 427.31 Atrial 12:00p Cardiology Valente Nava Fibrillation 414.00 Coronary Atherosclerosis Unspec Type Vessel [place]/Graft 401.9 Hypertension Unspec Office Visit 11/13/2013 Rheumat[facility] Miguel Vargas, 714.0 Rheumatoid 3:20p Services Of Felisha Victor Arthritis Office Visit 11/01/2013 [facility] Zhou 427.31 Atrial 3:49p Assoc,noelle Schwab M.D. Fibrillation Hospitalists 414.00 Coronary Atherosclerosis Unspec Type Vessel [place]/Graft 338.29 Other Chronic Pain 401.9 Hypertension Unspec Office Visit 10/31/2013 10:27a Leeann Sagastume 427.31 Atrial Cardiology Of M.Mick Fibrillation [facility] 414.01 Coronary Atherosclerosis [place] Office Visit 10/30/2013 3:47p [facility] Deja Thomas 427.31 Atrial Assoc,pc N.P. Fibrillation Hospitalists 414.00 Coronary Atherosclerosis Unspec Type Vessel [place]/Graft 338.29 Other Chronic Pain 401.9 Hypertension Unspec Office Visit 10/30/2013 2:00p Rheumatology Miguel Vargas, 719.90 Joint Disorder Services Of Felisha Victor Unspec Site Unspec 427.31 Atrial Fibrillation Office Visit 07/17/2013 Lexis Santoro S. 414.01 Coronary 4:00p Rosette Nava M.D. Atherosclerosis [place] 401.1 Hypertension Benign 272.4 Hyperlipidemia Other Unspec V45.82 Percutaneous Transluminal Coronary Angioplas Postsurg Status Office Visit 01/01/2013 Lexis Santoro S. 414.01 Coronary 3:30p Rosette Nava M.D. Atherosclerosis [place] 401.1 Hypertension Benign 272.4 Hyperlipidemia Other Unspec V45.82 Percutaneous Transluminal Coronary Angioplas Postsurg Status Office Visit 12/25/2012 8:21a [place] Ramirez Amezcuaa S. 411.1 Coronary Syndrome Assoc,noelle Little N.PCesar Intermediate Hospitalists 414.00 Coronary Atherosclerosis Unspec Type Vessel [place]/Graft 272.2 Hyperlipidemia Mixed 401.9 Hypertension Unspec Office Visit 12/24/2012 [place] Ramirez Culpua 411.1 Coronary Syndrome 8:20a Assoc,noelle Teixeira N.P. Intermediate Hospitalists 414.00 Coronary Atherosclerosis Unspec Type Vessel [place]/Graft 272.2 Hyperlipidemia Mixed 401.9 Hypertension Unspec Office Visit 12/24/2012 Lexis Santoro S. 414.01 Coronary 11:30a Rosette Nava M.D. Atherosclerosis [place] 786.50 Pain Chest Unspec 786.05 Shortness Of Breath Office Visit 12/23/2012 [place] Ramirez Kellershua 411.1 Coronary Syndrome 8:20a Assocnoelle, N.P. Intermediate Hospitalists 401.9 Hypertension Unspec 414.00 Coronary Atherosclerosis Unspec Type Vessel [place]/Graft 272.2 Hyperlipidemia Mixed Office Visit 12/23/2012 10:13a [facility] Judah Del Valle 414.9 Ischemic Heart Of Felisha Driscoll M.D., Disease Chronic FACC, FASNC Unspec Office Visit 12/22/2012 8:19a [facility] Luca 411.1 Coronary Syndrome Assoc,noelle Teixeira Intermediate Hospitalists N.P. 401.9 Hypertension Unspec 414.00 Coronary Atherosclerosis Unspec Type Vessel [place]/Graft 272.2 Hyperlipidemia Mixed Office Visit 12/22/2012 9:41a [facility] Judah Del Valle 414.9 Ischemic Heart Of Felisha Driscoll M.D., Disease Chronic FACC, FASNC Unspec Office Visit 12/21/2012 8:18a [facility] Luca 411.1 Coronary Syndrome Assocnoelle Intermediate Hospitalists N.P. 401.9 Hypertension Unspec 414.00 Coronary Atherosclerosis Unspec Type Vessel [place]/Graft 272.2 Hyperlipidemia Mixed Office Visit 12/21/2012 8:50a [facility] Shaun Moyer 786.50 Pain Chest Valente Man Unspec 794.31 Electrocardiogram (ECG) (EKG) Abnormal 414.01 Coronary Atherosclerosis [place] Office Visit 12/12/2012 [place] Qutaybeh S. 414.01 Coronary 2:20p Cardiology Valente Nava Atherosclerosis [place] 401.1 Hypertension Benign 272.4 Hyperlipidemia Other Unspec 786.05 Shortness Of Breath Office Visit 04/13/2012 [place] Qutaybeh S. 414.01 Coronary 2:40p Rosette Nava M.D. Atherosclerosis [place] 401.1 Hypertension Benign 272.4 Hyperlipidemia Other Unspec 794.31 Electrocardiogram (ECG) (EKG) Abnormal Office 08/05/2011 [place] Qutaybeh S. 794.31 Electrocardiogram Visit 10:40a Rosette Nava M.D. (ECG) (EKG) Abnormal 414.01 Coronary Atherosclerosis [place] 401.1 Hypertension Benign 272.4 Hyperlipidemia Other Unspec Office 12/31/2010 [place] Qutaybeh S. 794.31 Electrocardiogram Visit 11:20a Rosette Nava M.D. (ECG) (EKG) Abnormal 414.01 Coronary Atherosclerosis [place] 401.1 Hypertension Benign 272.4 Hyperlipidemia Other Unspec Office 12/10/2010 [place] Qutaybeh S. 794.31 Electrocardiogram Visit 3:48p Rosette Nava M.D. (ECG) (EKG) Abnormal 414.01 Coronary Atherosclerosis [place] 401.1 Hypertension Benign 786.50 Pain Chest Unspec v45.82 Percutaneous Transluminal Coronary Angioplas Postsurg Status Office Visit 06/16/2010 [place] Qutaybeh S. 414.01 Coronary 10:00a Rosette Nava M.D. Atherosclerosis [place] 401.1 Hypertension Benign 272.4 Hyperlipidemia Other Unspec V45.82 Percutaneous Transluminal Coronary Angioplas Postsurg Status Office 06/09/2010 [place] Qutaybeh S. 794.31 Electrocardiogram Visit 11:21a Rosette Nava M.D. (ECG) (EKG) Abnormal 414.01 Coronary Atherosclerosis [place] 401.1 Hypertension Benign 786.50 Pain Chest Unspec 786.05 Shortness Of Breath Office Visit 06/08/2010 10:57a [facility] Yvan S. 786.50 Pain Chest Valente Nava Unspec 414.01 Coronary Atherosclerosis [place] 401.1 Hypertension Benign 272.4 Hyperlipidemia Other Unspec v45.82 Percutaneous Transluminal Coronary Angioplas Postsurg Status Office Visit 06/07/2010 [place] Juanlandy S. 414.01 Coronary 9:46a Cardiology Valente Nava Atherosclerosis [place] 401.1 Hypertension Benign 272.4 Hyperlipidemia Other Unspec 786.05 Shortness Of Breath 786.50 Pain Chest Unspec Office Visit 06/06/2010 [place] Shaun FCesar 794.31 Electrocardiogram 8:43a Cardiology Valente Man (ECG) (EKG) Abnormal 786.50 Pain Chest Unspec 786.09 Dyspnea & Respiratory Abnormalities Other 414.01 Coronary Atherosclerosis [place] Office Visit 02/22/2010 [place] Nurse Visit cc 401.1 Hypertension Benign 1:15p Cardiology Office Visit 01/08/2010 [place] Yvan S. 414.01 Coronary 3:20p Rafael Salcido M.D. [place] 401.1 Hypertension Benign 496 COPD Airway Obstruction Chronic Not Class Elsewhere Office Visit 05/14/2009 [place] Juanlandy S. 414.01 Coronary 3:00p Rosette Nava M.D. Atherosclerosis [place] 401.1 Hypertension Benign 496 COPD Airway Obstruction Chronic Not Class Elsewhere 401.9 Hypertension Unspec Office Visit 04/21/2009 [facility] Leeann 780.59 Sleep Disturbances 2:00a Assoc,noelle Camacho M.D. Other Hospitalists 414.9 Ischemic Heart Disease Chronic Unspec 496 COPD Airway Obstruction Chronic Not Class Elsewhere 493.90 Asthma Unspec W/O Status Asthmaticus 300.00 Anxiety State Unspec Office Visit 04/20/2009 3:00a [facility] Rosales Sher, 786.50 Pain Chest Assnoelle murray M.D. 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 414.01 Coronary 10:20a Cardiology Valente Nava Atherosclerosis [place] V45.82 Percutaneous Transluminal Coronary Angioplas Postsurg Status 401.1 Hypertension Benign Plan of Treatment Future Appointment(s):03/14/2018 11:00 am - [place] ECHO Schedule at [facility]02/21/2018 11:00 am - Nurse Visit IC at [facility]2017 11:15 am - Nurse Visit IC at [facility]02/12/2018 - Yvan Nava M.D.I48.0 Paroxysmal atrial fibrillationNew Orders:24 hour holter monitor, Scheduled: 02/20/18ollow up:9 months ovI25.118 Atherosclerotic heart disease of [place] coronary artery withI10 Essential (primary) rojibbiypuzsF58.10 Atherosclerotic heart disease of [place] coronary artery withI77.819 Aortic ectasia, unspecified siteNew Orders:Echocardiogram, Scheduled : 03/14/18
[2018-03-10 13:05] LABS: ABS Basophils 0 10^3/ul (0-0.2); ABS Eosinophils 0.3 10^3/ul (0-0.6); ABS Lymphocytes 1.4 10^3/ul (1.0-4.8); ABS Monocytes 0.5 10^3/ul (0-0.8); ABS Neutrophils 3.7 10^3/ul (1.5-7.7); ABS Nucleated RBC 0 10^3/ul; Eosinophil % 4.5 %; Hematocrit 41 % (35-47); Hemoglobin 13.9 g/dl (12.0-16.0); Lymphocyte % 24.3 %; Mean Corpuscular HGB Conc 34 g/dl (31-36); Mean Corpuscular Hemoglobin 28 pg (27-31); Mean Corpuscular Volume 84 fL (80-97); Mean Platelet Volume 8.6 fL (7.4-10.4); Nucleated Red Blood Cells % 0.1; Platelet Count 175 10^3/ul (150-450); Red Blood Count 4.93 10^6/ul (4.00-5.40); Red Cell Distribution Width 14 % (10.5-15); White Blood Count 5.9 10^3/ul (3.5-10.8)
[2018-03-10 13:13] LABS: Activated Partial Thrombo Time 54.4 seconds (26.0-36.3); INR 1.18 (0.77-1.02)
[2018-03-10 13:25] LABS: ALT 17 U/L (7-52); AST 24 U/L (13-39); Albumin/Globulin Ratio 1.2 (1-3); Alkaline Phosphatase 97 U/L (34-104); Anion Gap 8 mmol/L (2-11); Blood Urea Nitrogen 18 mg/dL (6-24); C Reactive Protein 1.57 mg/L (<8.01); CO2 Carbon Dioxide 26 mmol/L (22-32); Calcium 9.6 mg/dL (8.6-10.3); Chloride 105 mmol/L (101-111); Creatine Kinase 77 U/L (10-223); EGFR Non-African American 62.5 (>60); Globulin 3.3 g/dL (2-4); Glucose 88 mg/dL (70-100); Magnesium 1.9 mg/dL (1.9-2.7); Potassium 3.5 mmol/L (3.5-5.0); Sodium 139 mmol/L (135-145); Total Protein 7.3 g/dL (6.4-8.9)
[2018-03-10 13:30] LABS: Alcohol < 10 mg/dL (<10)
[2018-03-10 13:45] LABS: TSH (Thyroid Stimulating Horm) 1.69 mcIU/mL (0.34-5.60)
[2018-03-10 13:47] LABS: Urine Appearance Clear; Urine Bilirubin Negative (Negative); Urine Blood Negative (Negative); Urine Color Straw; Urine Glucose Negative (Negative); Urine Ketones Negative (Negative); Urine Nitrite Negative (Negative); Urine Protein Negative (Negative); Urine Specific Gravity 1.004 (1.010-1.030); Urine Urobilinogen Negative (Negative)
[2018-03-10 14:19] LABS: Barbiturates Urine Screen None Detected (None Detect); Benzodiazepine Urine Screen None Detected (None Detect); Urine Cannabinoids Screen None Detected (None Detect)
[2018-03-10] MEDS ORDERED: Iohexol 350* (CONTRAST) 500 ML MDV IV ONE (14:26)
[2018-03-10] MEDS ORDERED: Potassium Chlor TAB* 20 MEQ TAB.ER PO ONE (19:07)
[2018-03-10] MEDS ORDERED: Magnesium Sulfate 1 GM IV* 1 GM/100 ML BAG IV ONE (19:07)
[2018-03-10] MEDS ORDERED: hydrALAZINE IV* 20 MG/ML VIAL IV SLOW PU PRN (19:50)
[2018-03-10] MEDS: Acetaminophen TAB* 325 MG PO PRN (19:56)
--- NOTE | 2018-03-10 19:56 | CONS ---
CC: Dr. Nava; Dr. Isidoro Wiseman * CONSULTATION REPORT: DATE OF CONSULT: 03/10/18 REQUESTING PHYSICIAN: Dr. Clayton. REASON FOR CONSULT: Evaluation for TIA in the setting of hypertension. HISTORY OF PRESENT ILLNESS: Estefany Low is a 68-year-old woman with history of atrial fibrillation; coronary artery disease with stent; hyperlipidemia; abdominal aortic aneurysm, followed in [place], who had an episode of bilateral vision loss and of feeling weak upon sitting about a month ago, which resolved within minutes. She now presents with repeat elevated blood pressure with symptoms of having slightly fuzzy head and slight blurring of vision in the left eye. She tells me that she was at home this morning when she felt a slight fuzzy feeling in her head. It is a fuzzy headache which she has had in the past and had associated with the episode where she sat up and had blackening of vision in both eyes. She also felt slightly dizzy with no vertigo component and when questioned about vision changes, she thought maybe there was some blurry fuzziness in the left eye. She took her blood pressure and it was 200/118; repeated it, at 189/114 and she called her daughter who works at [employer] [facility] [employer] and it was suggested she comes in. There was no change in speech. No numbness or weakness of arms or legs. She does get intermittent palpitations at times. In the past, she has had occasional pressure on the back of her chest with sweating, but this did not occur at this time. She follows with Dr. Nava for coronary artery disease. PAST MEDICAL HISTORY: Includes atrial fibrillation; hypertension; hyperlipidemia; coronary artery disease with stent; abdominal aortic aneurysm without rupture, followed in [place]; osteoarthritis; COPD; hypothyroidism; a "little" anxiety. PAST SURGICAL HISTORY: Left shoulder surgery for the rotator cuff. MEDICATIONS: Her current medications include: 1. Alprazolam 0.5 mg p.o. t.i.d. p.r.n. anxiety. 2. Simvastatin 10 mg p.o. q.h.s. 3. Potassium chloride 20 mEq in the morning, 10 at night. 4. Omeprazole 20 mg p.o. p.r.n. 5. Metoprolol twice a day, listed in the chart as 100 mg b.i.d. 6. Levothyroxine 75 mcg p.o. daily. 7. Hydrochlorothiazide 25 mg p.o. daily. 8. Pradaxa 150 mg p.o. b.i.d. 9. Combination B12, folate, and B6 once a day. 10. Magnesium 250 mg p.o. daily when she remembers. 11. Vitamin D 2000 International Units p.o. daily. 12. Aspirin 81 mg p.o. daily. ALLERGIES: Include CODEINE which causes her to be sick to her stomach, LATEX which causes a rash, SIMVASTATIN which causes muscle weakness at higher doses. FAMILY HISTORY: Includes a mother who at 82 with Alzheimer's disease. She also had a history of diabetes and coronary artery disease. Her father in his 60s of a myocardial infarction. She had a brother who in his 40s from [place] versus aneurysm, a brother who has congestive heart failure and diabetes, and a brother who has kidney problems. She has 2 children, who are alive and well. SOCIAL HISTORY: She stopped smoking 13 years ago. Prior to that time, she smoked for 25 years. She drinks 1 glass of wine a day. She is to her third . REVIEW OF SYSTEMS: She has had recent surgery with Dr. Grimes, which she describes as laser surgery for eyes 3 to 4 weeks ago after which she has had to use eye drops. She has also been told there is possible glaucoma. She denies blackening of vision in one eye or another with this event. She has had no change in speech. She has had palpitations, occasional pressure on the back of her chest with sweating, but none prior to this admission. She denies any shortness of breath. There has been significant joint pain in the right elbow and right knee, which has worsened recently. There have been no recent rashes. She denies any numbness or weakness of her arms or legs, change in bowel or bladder habits. She has had no weight loss, drenching night sweats, or high fevers for unknown reason. DIAGNOSTIC STUDIES/LAB DATA: Data includes CBC which was normal. INR was elevated at 1.18 with a PTT of 54.4. Her complete metabolic panel was normal. Her BNP was 124. C-reactive protein was within normal limits. TSH was 1.69. Her urinalysis was negative with exception of a low specific gravity. Her urine tox screen was negative. Serum alcohol was less than 10. She had a CTA of the brain and neck, which was reported to show 67% stenosis on the right and 25% on the left. This was described as atherosclerotic disease in the bulbs extending into the internal carotid arteries. There also was a 6 mm hypoattenuating focus in the thyroid and potential for outpatient evaluation with ultrasound was raised in the report IMPRESSION AND PLAN: A 68-year-old woman with a history of atrial fibrillation ; coronary artery disease; hyperlipidemia; abdominal aortic aneurysm, followed in [place], who had an episode of bilateral vision loss, feeling weak all over upon sitting about a month ago associated with a fuzzy headache feeling. She now this morning had a repeat fuzzy headache feeling and possibly some slight blurring of vision in her left eye in the setting of repeated elevated blood pressure. She came into the hospital on encouragement of her daughter when she told her about her blood pressures. Her initial symptoms about a month ago sound like presyncope. No focal features were noted. She was feeling weak all over when this occurred, it occurred with bilateral vision loss. She did describe dizziness; however, there was no vertiginous component. It spontaneously resolved after sitting for a period of time. This morning's episode is associated with high blood pressure. In regards to focal description of some possible vision change in the left eye, she has no critical left carotid stenosis. She has had recent surgery with Dr. Grimes; however, this symptom was transient. There were no other focal features on history or examination to suggest transient ischemic attack or stroke. She is to be admitted for blood pressure control, telemetry, cardiac evaluation , and possible consideration of echo which had been originally planned as an outpatient. Please call if further neurologic input is needed. > 60 minutes was spent in direct face to face patient care, in addition to coordination of care, discussion with ER MD and hospitalist team for a total of 90 minutes care. [id number]/[facility] #: [id number] ROHIT
[2018-03-10] MEDS: ALPRAZolam TAB* 0.5 MG PO PRN (19:57)
--- NOTE | 2018-03-10 21:10 | HP ---
CC: Dr. Isidoro Wiseman; Dr. Nava * HISTORY AND PHYSICAL: DATE OF ADMISSION: 03/10/18 PRIMARY CARE PROVIDER: Dr. Isidoro Wiseman. PRIMARY CONSTRUCTION PLUMBER: Dr. Nava. ATTENDING PHYSICIAN: Dr. Rosalio Graham * (dictated by Aniya Garner NP). CHIEF COMPLAINT: Headache with vision changes. HISTORY OF PRESENT ILLNESS: Ms. Low is a 68-year-old female with past medical history significant for paroxysmal atrial fibrillation, COPD, CAD, hypertension, AAA, osteoarthritis, hyperlipidemia, who states that for the last few weeks, she has had a runny nose. She has followed with her primary care provider and was started on an inhaler and antihistamine. She states she has occasionally been taking the antihistamine but not the inhaler. She feels the inhaler makes her go into AFib. Today, she has had a headache all day. She states she rarely gets headaches. She reports that the headache had associated right eye vision changes that had resolved. She describes these as a "blurry dizziness". She had no syncopal episodes. Denies fevers. She feels as though she had chills yesterday. Denies chest pain, shortness of breath, nausea, vomiting, diarrhea. She intermittently has palpitations when she goes into AFib and they come and go. She denies any neuro deficits such as one-sided weakness, trouble speaking, difficulty walking. She states that a month ago she was leaning to the left, she called her and got help. She was seen by Dr. Nava, who felt as though she may be having mini-strokes and needed to see Neurology, but is unable to get to Neurology until August. He scheduled her for an echo on 03/14/18. Due to her symptoms, she presented to the emergency room for further evaluation. While in the emergency room, she was initially noted to have a blood pressure of 202/108. The dizziness resolved in addition to the visual changes. It is to note that while in the ER, she reported that her visual changes were in both eyes, not just one and she was reporting dizziness feeling as though she was going to fall. She reports taking her blood pressure medications this morning. Upon reassessment of her blood pressure, she was 189/104. She received 2 doses of hydralazine. Additionally, while in the ER, she was seen in consultation by Dr. Crane, who felt that her symptoms were secondary to hypertensive urgency. She had an EKG showing sinus rhythm, chest x-ray with no acute findings, head CT without acute findings, head CTA showing a 67% stenosis on the right internal carotid artery and 25% on the left, and the hospitalists were asked to evaluate the patient for admission. PAST MEDICAL HISTORY: 1. Paroxysmal atrial fibrillation. 2. COPD. 3. CAD. 4. Hypertension. 5. AAA. 6. Osteoarthritis. 7. Hyperlipidemia. PAST SURGICAL HISTORY: 1. Status post recent laser surgery on bilateral eyes. 2. Status post left rotator cuff repair. 3. Status post cardiac stenting in 2001. 4. Status post bilateral carpal tunnel release. 5. Status post right knee arthroscopy. HOME MEDICATIONS: Include: 1. Simvastatin 10 mg oral daily at bedtime. 2. Potassium chloride 20 mEq oral twice daily. 3. Omeprazole 20 mg oral daily as needed for indigestion. 4. Metoprolol tartrate 100 mg oral twice daily. 5. Levothyroxine 75 mcg oral daily. 6. Hydrochlorothiazide 25 mg oral daily. 7. Dabigatran 150 mg oral twice daily. 8. Folplex 2.2 one tablet oral daily. 9. Vitamin D 2000 units oral daily. 10. Aspirin 81 mg oral daily. 11. Xanax 0.5 mg oral 3 times daily as needed for anxiety. ALLERGIES: CODEINE, ZETIA, LATEX, SIMVASTATIN. FAMILY HISTORY: Both her mother and father with a history of heart disease, maternal grandmother with a history of heart disease, and a brother with heart disease starting in his 40s. Her mother and brother have a history of diabetes. She denies family history of cancer. Mother with a history of Alzheimer's. SOCIAL HISTORY: She is a former smoker. She rarely drinks alcohol. Denies recreational drugs. Her , Yovany Low, will be her surrogate decision maker in the event she is unable to make decisions for herself. REVIEW OF SYSTEMS: I performed an 11-point review of systems. All the pertinent positives and negatives are mentioned in the history of present illness. She does report feeling "flushed". The remaining review of systems are negative. PHYSICAL EXAMINATION GENERAL APPEARANCE: She is alert, pleasant, and appears to be in no acute distress. VITAL SIGNS: Temperature 97.3, heart rate 75, respiratory rate 16, O2 sat 99% on room air, blood pressure 154/83. HEENT: Normocephalic, atraumatic. Pupils are equal and reactive to light. Extraocular movements are intact. RESPIRATORY: There is no accessory muscle use. The lungs are clear to auscultation bilaterally. CARDIOVASCULAR: Regular rate and rhythm. S1, S2 present. There are no murmurs , rubs, or gallops heard. ABDOMEN: Soft, nontender, nondistended. There are bowel sounds present x4. EXTREMITIES: No lower extremity edema. DP and PT pulses are 2+ and symmetric. MUSCULOSKELETAL: There is no clubbing or cyanosis noted. The patient exhibits good strength in all extremities. She has some mild swelling in her right knee that is baseline. NEUROLOGIC: The patient is alert and oriented x4. Cranial nerves II through XII are grossly intact. PSYCHOLOGIC: She is calm and cooperative. SKIN: There are no rashes or abnormalities seen. DIAGNOSTIC STUDIES/LAB DATA: Sodium 139, potassium 3.5, chloride 105, CO2 26, BUN 18, creatinine 0.90, glucose 88. White blood cell count 5.9, hemoglobin 13.9, hematocrit 41, platelet count 175. EKG shows a sinus rhythm, rate of 69. There are no acute signs of ischemia. This EKG is similar to previous from 10/23/17. Chest x-ray from today. Radiologist's impression: No radiographic evidence for acute cardiopulmonary disease. Brain CT from today. Radiologist's impression: No CT evidence of acute intracranial pathology. Head CT from today. Radiologist's impression: There is calcified atherosclerosis at the bilateral carotid bulbs extending into the bilateral internal carotid arteries causing 67% degree of stenosis on the right and 25% degree of stenosis on the left according to NASCET criteria. There are no large abrupt filling defects of the intracranial arterial vasculature. In the left lobe of the thyroid, there is a 6 mm hypoattenuating focus. This can be followed up with a nonurgent ultrasound if clinically indicated. IMPRESSION: Ms. Low is a 68-year-old female with past medical history significant for paroxysmal atrial fibrillation, chronic obstructive pulmonary disease, coronary artery disease, hypertension, abdominal aortic aneurysm, osteoarthritis and hyperlipidemia, who presented to the emergency room with complaints of a headache, found to be hypertensive. She will be admitted as an observation for hypertensive urgency. ASSESSMENT/PLAN: 1. Hypertensive urgency. Her blood pressures have improved to normotensive range after 2 doses of hydralazine in the emergency room. I suspect her dizziness and headache are secondary to her hypertension. For now, I am going to continue her on her home metoprolol and hydrochlorothiazide. She will have as-needed hydralazine for systolic blood pressures greater than 180 and diastolic greater than 100. We will check a transthoracic echocardiogram as advised by Neurology. 2. Paroxysmal atrial fibrillation. She is currently in a sinus rhythm. I am going to monitor her on telemetry as she did have a run of what appears to be supraventricular tachycardia in the emergency room. Her potassium is 3.5. I am going to give her 40 mEq of potassium this evening and her magnesium is 1.9. I am going to give her 1 g of magnesium. We will recheck her electrolytes and magnesium tomorrow. Continue her on her home Pradaxa and metoprolol. 3. Chronic obstructive pulmonary disease. No signs of acute exacerbation at this time. 4. Coronary artery disease. She denies any chest pain. We will continue her metoprolol, her low-dose statin and aspirin. 5. Osteoarthritis. She will have pain management and supportive care. 6. Hyperlipidemia. We will continue low-dose statin. 7. Electrolyte abnormalities. Although her potassium and magnesium are within normal limits, they are low for somebody with atrial fibrillation and we are going to give her replacement as stated above. 8. Fluids, electrolytes, and nutrition: She will be on a heart-healthy diet. 9. Code status: Full code. 10. DVT prophylaxis: She is at high risk. She will be continued on her home Pradaxa. 11. Disposition: OBV. TIME SPENT: Time for this admission was approximately 50 minutes, greater than half of that was spent with the patient discussing medications, past medical history, the events leading up to her arrival today, and performing a physical examination. The case has been reviewed with the attending, Dr. Graham, who agrees with the plan of care. ANIYA GARNER, TEOFILO [id number]/[facility] #: [id number] ROHIT
[2018-03-10] MEDS: Atorvastatin* 10 MG TAB PO SCH (21:20)
[2018-03-10] MEDS: Omeprazole CAP (NF) 20 MG CAP.DR PO PRN ×2 (21:20→21:21)
[2018-03-10] MEDS: CMC:Dabigatran CAP(NF) 150 MG CAP PO SCH (21:22)
[2018-03-10] MEDS: Metoprolol Tartrate TAB* 100 MG TAB PO SCH (21:24)
[2018-03-11] MEDS: Levothyroxine TAB* 75 MCG TAB PO SCH (05:11)
[2018-03-11 06:26] LABS: BUN/Creatinine Ratio 18.9 (8-20); Calcium 9.5 mg/dL (8.6-10.3); EGFR Non-African American 62.5 (>60); Magnesium 2.3 mg/dL (1.9-2.7); Potassium 3.8 mmol/L (3.5-5.0)
[2018-03-11] MEDS: Acetaminophen TAB* 325 MG PO PRN (08:57)
[2018-03-11] MEDS: Metoprolol Tartrate TAB* 100 MG TAB PO SCH ×2 (08:59→21:04)
[2018-03-11] MEDS: Aspirin EC TAB* 81 MG TAB.EC PO SCH (08:59)
[2018-03-11] MEDS: Cholecalciferol TAB* 1000 UNITS PO SCH (08:59)
[2018-03-11] MEDS: Hydrochlorothiazide TAB* 25 MG PO SCH (08:59)
[2018-03-11] MEDS: CMC:Dabigatran CAP(NF) 150 MG CAP PO SCH ×2 (08:59→21:03)
[2018-03-11] MEDS: Potassium Chlor TAB* 20 MEQ TAB.ER PO SCH ×2 (09:00→21:04)
--- NOTE | 2018-03-11 09:39 | PN ---
Subjective Date of Service: 03/11/18 Interval History: Pt reports she feels "pretty good" this morning. She reports mild HAQ. Denies vision changes. Denies any focal deficits, numbness, tingling, speech or gait difficulties. Report URI is almost resolved. Denies fever/chills/N/V/D. Objective Active Medications: Acetaminophen (Tylenol Tab*) 650 mg PO Q4H PRN PRN Reason: FEVER/PAIN Last Admin: 03/11/18 08:57 Dose: 650 mg Alprazolam (Xanax Tab*) 0.5 mg PO TID PRN PRN Reason: ANXIETY Last Admin: 03/10/18 19:57 Dose: 0.5 mg Aspirin (Aspirin Ec Tab*) 81 mg PO DAILY [facility] Last Admin: 03/11/18 08:59 Dose: 81 mg Atorvastatin Calcium (Lipitor*) 5 mg PO BEDTIME [facility] Last Admin: 03/10/18 21:20 Dose: 5 mg Cholecalciferol (Vitamin D Tab*) 2,000 units PO DAILY [facility] Last Admin: 03/11/18 08:59 Dose: 2,000 units Dabigatran (Pradaxa Cap(Nf)) 150 mg PO BID [facility] Last Admin: 03/11/18 08:59 Dose: 150 mg Hydralazine HCl (Apresoline Iv*) 5 mg IV SLOW PU Q6H PRN PRN Reason: BLOOD PRESSURE Hydrochlorothiazide (Hydrodiuril Tab*) 25 mg PO DAILY [facility] Last Admin: 03/11/18 08:59 Dose: 25 mg Levothyroxine Sodium (Synthroid Tab*) 75 mcg PO 0600 [facility] Last Admin: 03/11/18 05:11 Dose: 75 mcg Metoprolol Tartrate (Lopressor Tab*) 100 mg PO BID [facility] Last Admin: 03/11/18 08:59 Dose: 100 mg Omeprazole (Prilosec Cap*) 20 mg PO DAILY PRN PRN Reason: HEARTBURN Last Admin: 03/10/18 21:21 Dose: 20 mg Potassium Chloride (Klor Con Er Tab*) 20 meq PO BID [facility] Last Admin: 03/11/18 09:00 Dose: 20 meq Vital Signs - 8 hr 03/11/18 03/11/18 04:02 07:15 Temperature 98.1 F Pulse Rate 62 Respiratory 16 Rate Blood Pressure 135/67 140/90 (mmHg) O2 Sat by Pulse 98 Oximetry Oxygen Devices in Use Now: None Appearance: 68 yo female sitting on the side of her bed in NAD. A+O x3 Eyes: No Scleral Icterus, PERRLA Ears/Nose/Mouth/Throat: NL Teeth, Lips, Gums, Mucous Membranes Moist Neck: NL Appearance and Movements; NL JVP Respiratory: Symmetrical Chest Expansion and Respiratory Effort, Clear to Auscultation Cardiovascular: NL Sounds; No Murmurs; No JVD, RRR, No Edema Abdominal: NL Sounds; No Tenderness; No Distention, - - obese Extremities: No Edema, No Clubbing, Cyanosis Skin: No Nodules or Sclerosis Neurological: Alert and Oriented x 3, NL Sensation, NL Gait, NL Muscle Strength and Tone Lines/Tubes/Other Access: Clean, Dry and Intact Peripheral IV Nutrition: Taking PO's Result Diagrams: 03/10/18 12:44 03/11/18 05:36 Assess/Plan/Problems-Billing Assessment: 68 yo female with PMH of paroxysmal afib, COPD, CAD, HTN, abdominal aortic anuerysm, osteoarthritis, HLD who presented to the ER on 03/10/17 with c/o headache found to be hypertensive admitted for hypertensive urgency. - Patient Problems (1) Hypertensive urgency Comment: - Resolved. - Continue home dose metoprolol and HCTZ with plan to trend today - may need second agent. Unclear etiology. Pt denies taking any decongestants for her cold only reporting taking an antihistamine 1 week ago. - appreciate neurology consult who does not believe this to be a CVA but 2nd to HTN. - Await echo (2) Afib Comment: currently in a NSR. continue metoprolol and pradaxa (3) AAA (abdominal aortic aneurysm) without rupture Comment: - Stable per Pt - Continue to follow with Vascular surgery in [facility] (4) CAD (coronary artery disease) Comment: - Troponin flat. No acute EKG changes - Continue ASA, Pradaxa, statin and metoprolol (5) Hyperlipidemia Comment: - Continue statin (6) Full code status (7) DVT prophylaxis Comment: - Continue Pradaxa Status and Disposition: OBV. Continue to monitor BPs, await echo. Home when medically stable most likely tomorrow.
--- NOTE | 2018-03-11 10:16 | ECHO ---
Patient: ANGELES COE [facility] Rec#: [id number] : 1950 Date: 03/11/2018 Age: 68y Height: 157 cm / 61.8 in Weight: 81.6 kg / 179.8 lbs Sex: F BSA: 1.82 Room#: [facility] Admit Date#: 03/10/2018 Type: Inpatient Referring: Ofe Caldwell NP Reading: Marija Sagastume MD Coroner/Medical Examiner: Ofe Flood RDCS CC: Isidoro Wiseman MD CC: Yvan Nava MD Transthoracic Echocardiogram Indication: Hypertensive urgency BP: 135/67 HR: 65 Rhythm: NSR with PACs Findings History: PAF, COPD, CAD, HTN, AAA, HLD, former smoker, cardiac stents 2001. Technical Comments: The study quality is fair. Completed at 0900. Left Ventricle: The left ventricular chamber size is normal. Mild concentric left ventricular hypertrophy is observed. There is a prominent septal knuckle. Global left ventricular wall motion and contractility are within normal limits. There is normal left ventricular systolic function. The estimated ejection fraction is 55-60%. Abnormal left ventricular diastolic function is observed. The left ventricular diastolic filling pattern is consistent with elevated left ventricular end-diastolic pressure. Left Atrium: The left atrium is mildly dilated. Right Ventricle: Moderator Band present. The right ventricular cavity size is normal. The right ventricular global systolic function is normal. Right Atrium: The right atrium is mildly dilated. Aortic Valve: The aortic valve is trileaflet. The aortic valve leaflets are mildly thickened. There is a trace of aortic regurgitation. There is no evidence of aortic stenosis. Mitral Valve: The mitral valve leaflets are mildly thickened. There is mild mitral regurgitation. There is no evidence of mitral stenosis. Tricuspid Valve: The tricuspid valve leaflets are normal. There is trace tricuspid regurgitation. Unable to estimate the right ventricular systolic pressure. There is no tricuspid stenosis. Pulmonic Valve: The pulmonic valve appears normal. There is a trace pulmonic regurgitation. There is no pulmonic stenosis. Pericardium: There is no significant pericardial effusion. A pericardial fat pad is visualized. Aorta: There is no dilatation of the ascending aorta. There is no dilatation of the aortic arch. The aortic root is normal in size. Pulmonary Artery: The main pulmonary artery appears normal. Venous: The inferior vena cava appears normal in size. There is a greater than 50% respiratory change in the inferior vena cava dimension. Conclusions Mild concentric left ventricular hypertrophy is observed. Global left ventricular wall motion and contractility are within normal limits. The estimated ejection fraction is 55-60%. The left ventricular diastolic filling pattern is consistent with elevated left ventricular end-diastolic pressure. The right ventricular global systolic function is normal. The aortic valve leaflets are mildly thickened with trace aortic regurgitation. There is mild mitral regurgitation. There is trace tricuspid regurgitation. Unable to estimate the right ventricular systolic pressure. Compared with prior echo of 10/31/13, EF is stable, LVH is new, no significant changes in valvular function. PA pressure previously 31 mmHg. Measurements Name Value Normal Range RVIDd (AP) 2D 2.6 cm (0.9 - 2.6) RVDdMajor (2D) 3.2 cm (2.2 - 4.4) RAd ISD 4CH 5.4 cm (3.4 - 4.9) RA (A4C)W 3.5 cm (2.9 - 4.6) IVSd (2D) 1.2 cm (0.6 - 1) LVPWd (2D) 1.2 cm (0.6 - 1) LVIDd (2D) 4.6 cm (3.6 - 5.4) LVIDs (2D) 3.3 cm - LV FS (2D) 29 % (25 - 45) Aortic Annulus 2.1 cm (1.4 - 2.6) Ao root diameter (2D) 3 cm (2.1 - 3.5) Ascending Ao 3.4 cm (2.1 - 3.4) Aortic arch 2.7 cm (1.8 - 3.4) LA dimension (AP) 2D 3.9 cm (2.3 - 3.8) LAd ISD 4CH 5.7 cm (2.9 - 5.3) LA ISD 4CH W 4.3 cm (2.5 - 4.5) Name Value Normal Range LA ESV BP (A/L) index 30 ml/m2 - Name Value Normal Range MV E-wave Vmax 1.13 m/sec - MV deceleration time 254 msec - MV A-wave Vmax 1.06 m/sec - MV E:A ratio 1.1 ratio - LV septal e' Vmax 0.05 m/sec - LV lateral e' Vmax 0.04 m/sec - LV E:e' septal ratio 22 ratio - LV E:e' lateral ratio 27.5 ratio - Name Value Normal Range AV Vmax 1.9 m/sec - AV VTI 41 cm - AV peak gradient 15 mmHg - AV mean gradient 6 mmHg - LVOT diameter 2 cm - LVOT Vmax 1.2 m/sec - LVOT VTI 27 cm - LVOT peak gradient 6 mmHg - LVOT mean gradient 3 mmHg - EDER Vmax 0.6 m/sec - Name Value Normal Range IVC diameter 1.6 cm - Name Value Normal Range PV Vmax 1 m/sec - PV peak gradient 4 mmHg -
[2018-03-11] MEDS ORDERED: amLODIPine TAB* 5 MG PO ONE (16:44)
[2018-03-11] MEDS: Atorvastatin* 10 MG TAB PO SCH (21:04)
[2018-03-12] MEDS: Levothyroxine TAB* 75 MCG TAB PO SCH (05:54)
[2018-03-12 07:56] VITALS: BP 137/79
[2018-03-12] MEDS: Metoprolol Tartrate TAB* 100 MG TAB PO SCH (07:59)
[2018-03-12] MEDS: Potassium Chlor TAB* 20 MEQ TAB.ER PO SCH (07:59)
[2018-03-12] MEDS: CMC:Dabigatran CAP(NF) 150 MG CAP PO SCH (07:59)
[2018-03-12] MEDS: Cholecalciferol TAB* 1000 UNITS PO SCH (07:59)
[2018-03-12] MEDS: Hydrochlorothiazide TAB* 25 MG PO SCH (07:59)
[2018-03-12] MEDS: Aspirin EC TAB* 81 MG TAB.EC PO SCH (08:00)
[2018-03-12] MEDS: ALPRAZolam TAB* 0.5 MG PO PRN (08:06)
[2018-03-12] MEDS ORDERED: amLODIPine TAB* 5 MG PO SCH (09:00)
--- NOTE | 2018-03-13 00:38 | DS ---
CC: Dr. Isidoro Wiseman; Dr. Nava.* DISCHARGE SUMMARY: DATE OF ADMISSION: 03/10/18 DATE OF DISCHARGE: 03/12/18 PRIMARY CARE PROVIDER: Dr. Isidoro Wiseman. CAKE PRESS OPERATOR: Dr. Nava. ATTENDING PHYSICIAN: Dr. Irina Mccall * (dictated by Brenda Parra NP). PRIMARY DIAGNOSIS: Hypertensive urgency. SECONDARY DIAGNOSES: 1. Paroxysmal atrial fibrillation. 2. Chronic obstructive pulmonary disease. 3. Coronary artery disease. 4. Hyperlipidemia. 5. History of abdominal aortic aneurysm without rupture. STUDIES WHILE IN THE HOSPITAL: 1. EKG on 03/10/18 shows normal sinus rhythm with a rate of 69. No ischemic changes. QTc 467. 2. Brain CT on 03/10/[address] evidence of acute intracranial abnormality. 3. Chest x-ray on 03/10/18 reads as no radiographic evidence of acute cardiopulmonary disease. 4. Head CTA on 03/10/18 reads as there is calcified atherosclerosis at the bilateral carotid bulbs extending into the bilateral internal arteries causing 67% degree of stenosis on the right and 25% degree of stenosis on the left according to NASCET criteria. There are no large, abrupt filling defects of the intracranial arterial vasculature. In the left lobe of the thyroid, there is a 6-mm hypoattenuating focus that can be followed up with non-emergent ultrasound if clinically indicated. 5. Transthoracic echocardiogram on 03/11/18 reads as mild concentric left ventricular hypertrophy is observed. Global left ventricular wall motion and contractility are within normal limits. The estimated ejection fraction is 55% to 60%. The left ventricular diastolic filling pattern is consistent with elevated left ventricular and diastolic pressure. The right ventricular global systolic function is normal. The aortic valve leaflets are mildly thickened with trace aortic regurgitation. There is mild mitral regurgitation. There is trace tricuspid regurgitation. Unable to estimate the right ventricular systolic pressure. Compared with prior echo of 10/31/13, EF is stable, LVH is new. No significant changes in valvular function. PA pressure previously 31 mmHg. HISTORY OF PRESENT ILLNESS AND HOSPITAL COURSE: Ms. Low is a 68-year-old female with a past medical history of atrial fibrillation, COPD, CAD, hypertension, AAA, and hyperlipidemia, who presented to the emergency room on with complaints of headache and vision changes. Please see the history and physical by Ofe Kahn NP, for complete summary of events leading up to this hospitalization. In short, the patient had a headache that lasted all day. She reported that she rarely had headache. She also reported some blurry vision. She attempted to get into see a neurologist, although was not able to get in until August and due to her symptoms, presented to the emergency room for evaluation. In the emergency room, she was noted to have a blood pressure of 202/108. Treatment of the blood pressure resolved her headache, dizziness and blurry vision. She was treated with hydralazine initially. She was seen in consultation by Dr. Crane from Neurology who felt as though her symptoms were secondary to hypertensive urgency and there was no concern for a neurological cause at this time. The patient was admitted by the hospitalist service for hypertensive urgency. She was treated with her usual hydrochlorothiazide and metoprolol in addition to IV hydralazine and her blood pressure gradually decreased. She did have an echocardiogram with results noted above. She was due to have an outpatient echocardiogram within the next week or so, although because of her acute symptoms, it was decided that she should have that as an inpatient. On 03/11/18 , the patient reported feeling better. Her symptoms had resolved. Her systolic pressures were ranging from 130 to 140 and she was therefore started on amlodipine 5 mg daily. As of today, the patient reports feeling well. She has not had any recurrent symptoms of dizziness, headache or vision changes. Her blood pressure today has been in the 130s/60s to 70s. She has no focal neurological deficits on exam and is anxious to return home. Ms. Low is stable for discharge today. Vital signs are as follows: Temp 97.8 , heart rate 64, respiratory rate 16, oxygen saturation 99% on room air, blood pressure 137/79. DISCHARGE MEDICATIONS: New medication: 1. Amlodipine 5 mg p.o. daily. Continued medications: 1. Alprazolam 0.5 mg p.o. t.i.d. p.r.n. anxiety. 2. Aspirin 81 mg p.o. daily. 3. Vitamin D 2000 units p.o. daily. 4. Vitamin B complex 1 tab p.o. daily. 5. Pradaxa 150 mg p.o. b.i.d. 6. Hydrochlorothiazide 25 mg p.o. daily. 7. Levothyroxine 75 micrograms p.o. daily. 8. Metoprolol tartrate 100 mg p.o. b.i.d. 9. Omeprazole 20 mg p.o. daily. 10. Potassium chloride 20 mEq p.o. b.i.d. 11. Simvastatin 20 mg p.o. at bedtime. DISCHARGE PLAN: Ms. Low will be discharge home. Activity will be as tolerated. Diet should be heart healthy. Her medications are noted above. She can continue her usual medications. She has been started on amlodipine 5 mg daily, which she should continue. She reports that she has an appointment with Dr. Nava in the next week. I have advised her that she should keep this appointment and she may follow up with him about blood pressure management at that time. I have additionally advised her that she should follow up with her primary care provider in 4 to 7 days. She has been advised to return to the emergency room or the nearest hospital for any worsening of symptoms, shortness of breath, lightheadedness, dizziness, chest discomfort, high fevers, chills, night sweats, loss of consciousness, or any other worrisome signs or symptoms. This is a summarized report of a complex medical history and hospital stay. For further details, please see the entire medical record. TIME SPENT: Approximately 40 minutes were spent on this discharge. BRENDA PARRA, TEOFILO [id number]/[facility] #: [id number] ROHIT
== END 2018-03-12 11:10 | disposition home or self-care (01) ==
LOC: ED 12:03 → MEDTELE 18:54
PROVIDERS: ADMIT Internal Medicine; ATTEND Internal Medicine
DX: I10 Essential (primary) hypertension (principal); I48.0 Paroxysmal atrial fibrillation; J44.9 Chronic obstructive pulmonary disease, unspecified; I25.10 Atherosclerotic heart disease of native coronary artery without angina pectoris; E78.5 Hyperlipidemia, unspecified; Z86.79 Personal history of other diseases of the circulatory system; Z79.82 Long term (current) use of aspirin
CPT/HCPCS: 36415; 70450; 70496; 70498; 71046; 80048; 80053; 80307; 80320; 81003; 82550; 83605; 83735; 83880; 84443; 84484; 85025; 85610; 85730; 86140; 93005; 93306; 96365; 96375; 99284; A9270-GY; G0378; G0480; J0360; J3475; Q9967

== ENCOUNTER 2018-06-26 12:51 | Emergency (ER) | payer MEDICARE ==
--- NOTE | 2018-06-26 14:03 | ED ---
Palpitations / Dysrhythmia - HPI Summary HPI Summary: Patient is a 68 y/o female who presents to the ED c/o palpitations. Last night she had racing palpitations, which resolved after taking half her Metoprolol medication. She also had some right shoulder pain. Patient notes she often goes in and out of AFib. This morning she woke up with low back pain that radiates around to her abdomen. Patient still has pain but states it has slightly improved. She also has been having intermittent diarrhea, but denies any nausea , dysuria, or hematuria. She also notes that for the past few weeks shes been on Prednisone and Hydrocodone for joint and muscle pain. Patient has a follow up appointment with Dr. Wiseman on 07/03/18. She has a known AAA. PMHx AFib, CAD, HLD, HTN, GERD, hernia. - History of Current Complaint Chief Complaint: EDFlankPain Time Seen by Provider: 06/26/18 13:19 Hx Obtained From: Patient Onset/Duration: Gradual Onset, Lasting Hours - Last night Character: Fast Alleviating: Medication - Metoprolol Associated Signs & Symptoms: Negative Related History: Similar Episode/Dx as - hx afib - Allergy/Home Medications Allergies/Adverse Reactions: Allergies Allergy/AdvReac Type Severity Reaction Status Date / Time codeine Allergy GI Upset Verified 03/10/18 13:43 ezetimibe Allergy Rash Verified 03/10/18 13:43 latex Allergy Rash Verified 03/10/18 13:43 simvastatin Allergy See Comment Verified 03/12/18 10:25 Home Medications: Home Medications Cyanocobalamin/Folic AC/Vit B6 [Folplex 2.2] 1 tab PO DAILY 06/26/18 [History Confirmed 06/26/18] Potassium Chlor TAB* [Potassium Chlor TAB 20 MEQ*] 40 meq PO BID 06/26/18 [ History Confirmed 06/26/18] Rosuvastatin Calcium [Crestor] 10 mg PO DAILY 06/26/18 [History Confirmed ] PMH/Surg Hx/FS Hx/Imm Hx Endocrine/Hematology History: Reports: Hx Thyroid Disease - HYPO Denies: Hx Diabetes Cardiovascular History: Reports: Hx Aneurysm, Hx Angina, Hx Atrial Fibrillation , Hx Coronary Artery Disease - STENT/ANGIOPLASTY 2001, Hx Hypercholesterolemia, Hx Hypertension - ON MEDS, Other Cardiovascular Problems/Disorders - AAA Denies: Hx Pacemaker/ICD Respiratory History: Reports: Hx Asthma, Hx Chronic Obstructive Pulmonary Disease (COPD) GI History: Reports: Hx Gastroesophageal Reflux Disease, Hx Hiatal Hernia History: Denies: Hx Renal Disease Musculoskeletal History: Reports: Hx Arthritis Sensory History: Reports: Hx Contacts or Glasses Denies: Hx Hearing Aid Opthamlomology History: Reports: Hx Contacts or Glasses Neurological History: Reports: Hx Migraine Psychiatric History: Reports: Hx Anxiety, Hx Depression Denies: Hx Panic Disorder - Cancer History Hx Chemotherapy: No Hx Radiation Therapy: No - Surgical History Surgery Procedure, Year, and Place: BILATERAL CARPAL TUNNEL RELEASE. ROTOR CUFF REPAIR LEFT. RIGHT KNEE SCOPE. CARDIAC STENTS 2001(MULTI LINK [place]- CONDITIONAL 5 UP TO 3 T//330 G/CM) DR COTTER APPROVED HER FOR SCANNING ON 03.10 ONLY. Hx Anesthesia Reactions: No - Immunization History Date of Tetanus Vaccine: unk Date of Influenza Vaccine: unk Infectious Disease History: No Infectious Disease History: Reports: Hx of Known/Suspected MRSA - under arm many years ago Denies: Traveled Outside the [place] in Last 30 Days - Family History Known Family History: Positive: Cardiac Disease - both parents, Hypertension - Social History Alcohol Use: Rare Alcohol Amount: wine Hx Substance Use: No Substance Use Type: Reports: None Hx Tobacco Use: Yes Smoking Status (MU): Former Smoker Review of Systems Positive: Palpitations Positive: Abdominal Pain, Diarrhea. Negative: Nausea Negative: dysuria, hematuria Positive: Arthralgia - right shoulder, Myalgia - lower back All Other Systems Reviewed And Are Negative: Yes Physical Exam - Summary Physical Exam Summary: Constitutional: Well-developed, Well-nourished, Alert. (-) Distressed Skin: Warm, Dry HENT: Normocephalic; Atraumatic Eyes: Conjunctiva normal Neck: Musculoskeletal ROM normal neck. (-) JVD, (-) Stridor, (-) Tracheal deviation Cardio: Rhythm regular, rate normal, Heart sounds normal; Intact distal pulses; The pedal pulses are 2+ and symmetric. Radial pulses are 2+ and symmetric. (-) Murmur Pulmonary/Chest wall: Effort normal. (-) Respiratory distress, (-) Wheezes, (-) Rales Abd: Soft, (+) Mild left tenderness, (-) Distension, (-) Guarding, (-) Rebound Musculoskeletal: (-) Edema Lymph: (-) Cervical adenopathy Neuro: Alert, Oriented x3 Psych: Mood and affect Normal Triage Information Reviewed: Yes Vital Signs On Initial Exam: Initial Vitals Temp Pulse Resp BP Pulse Ox 98.2 F 57 18 136/54 97 06/26/18 12:58 06/26/18 12:58 06/26/18 12:58 06/26/18 12:58 06/26/18 12:58 Vital Signs Reviewed: Yes Diagnostics - Vital Signs Vital Signs Temp Pulse Resp BP Pulse Ox 06/26/18 12:58 98.2 F 57 18 136/54 97 - Laboratory Result Diagrams: 06/26/18 14:09 06/26/18 14:09 Lab Statement: Any lab studies that have been ordered have been reviewed, and results considered in the medical decision making process. - CT Abdomen/Pelvis CTA CT Interpretation Completed By: Radiologist Summary of CT Findings: ATHEROSCLEROSIS. STABLE DILATATION OF THE INFRARENAL ABDOMINAL AORTA WITHOUT SIGNIFICANT CHANGE COMPARED TO DECEMBER 09, 2016. HIATAL HERNIA. ED physician reviewed radiology report. - EKG 12:53 Cardiac Rate: Bradycardia - 56 bpm EKG Rhythm: Sinus Bradycardia Summary of EKG Findings: Bradycardia at 56 bpm, normal OR, normal QRS, normal QTc, PAC, normal ST, normal T-waves, normal EKG. Re-Evaluation - Re-Evaluation First Eval Re-Evaluation Time: 18:26 Change: Unchanged Comment: Discussed plan of care. Course/Dx - Course Course Of Treatment: Patient is a 68 y/o female who presents to the ED c/o palpitations, right shoulder pain, low back pain that radiates around to her abdomen, intermittent diarrhea. She also notes that for the past few weeks she s been on Prednisone and Hydrocodone for joint and muscle pain. PMHx AFib, CAD, HLD, HTN, GERD, hernia. A physical exam was normal. A CT A/P revealed ATHEROSCLEROSIS. STABLE DILATATION OF THE INFRARENAL ABDOMINAL AORTA WITHOUT SIGNIFICANT CHANGE COMPARED TO DECEMBER 09, 2016. HIATAL HERNIA. An EKG revealed bradycardia at a rate of 56 bpm. Bloodwork obtained. UA revealed blood, RBC. Final dx of abdominal pain. Patient will be discharged and is agreeable with this plan. - Diagnoses Provider Diagnoses: Abdominal pain Discharge - Sign-Out/Discharge Documenting (check all that apply): Patient Departure - Discharge Patient Received Moderate/Deep Sedation with Procedure: No - Discharge Plan Condition: Improved Disposition: HOME Patient Education Materials: Acute Abdominal Pain (ED) Print Language: MALTESE Referrals: Isidoro Wiseman MD [Primary Care Provider] - - Billing Disposition and Condition Condition: IMPROVED Disposition: Home - Attestation Statements Document Initiated by Scribe: Yes Documenting Scribe: Deepti Gonzalez Provider For Whom Scribe is Documenting (Include Credential): Susana Jason MD Scribe Attestation: Deepti Luke, scrdavided for Susana Blair MD on 06/26/18 at 2246. Scribe Documentation Reviewed: Yes Provider Attestation: The documentation as recorded by the Deepti herman accurately reflects the service I personally performed and the decisions made by , Susana Jason MD Status of Scribe Document: Viewed
[2018-06-26 14:21] LABS: ABS Basophils 0 10^3/ul (0-0.2); ABS Eosinophils 0.1 10^3/ul (0-0.6); ABS Monocytes 0.3 10^3/ul (0-0.8); ABS Nucleated RBC 0 10^3/ul; Eosinophil % 0.7 %; Hematocrit 43 % (33-41); Hemoglobin 14.4 g/dL (12.0-16.0); Lymphocyte % 13.1 %; Mean Corpuscular HGB Conc 34 g/dL (31-36); Mean Corpuscular Hemoglobin 28 pg (27-31); Mean Corpuscular Volume 84 fL (80-97); Mean Platelet Volume 8.6 fL (7.4-10.4); Nucleated Red Blood Cells % 0; Platelet Count 195 10^3/uL (150-450); Red Blood Count 5.08 10^6 /uL (3.70-4.87); Red Cell Distribution Width 14 % (10.5-15); White Blood Count 7.3 10^3/uL (3.5-10.8)
[2018-06-26 15:20] LABS: ALT 19 U/L (7-52); AST 23 U/L (13-39); Albumin 4.1 g/dL (3.2-5.2); Albumin/Globulin Ratio 1.3 (1-3); Alkaline Phosphatase 82 U/L (34-104); Anion Gap 7 mmol/L (2-11); BUN/Creatinine Ratio 24.3 (8-20); Blood Urea Nitrogen 27 mg/dL (6-24); C Reactive Protein < 1.00 mg/L (<8.01); CO2 Carbon Dioxide 28 mmol/L (22-32); Calcium 9.5 mg/dL (8.6-10.3); Chloride 104 mmol/L (101-111); EGFR African American 59.3 (>60); Globulin 3.1 g/dL (2-4); Glucose 100 mg/dL (70-100); Sodium 139 mmol/L (135-145); Total Protein 7.2 g/dL (6.4-8.9)
[2018-06-26] MEDS ORDERED: Iodixanol* (CONTRAST) 320 MG/ML 100 ML SDV IV ONE (16:14)
[2018-06-26 19:11] LABS: Urine Appearance Clear; Urine Bacteria Absent (Absent); Urine Bilirubin Negative (Negative); Urine Blood 2+ (Negative); Urine Color Yellow; Urine Glucose Negative (Negative); Urine Ketones Negative (Negative); Urine Nitrite Negative (Negative); Urine Protein Negative (Negative); Urine Red Blood Cell 1+(3-5/hpf) (Absent); Urine Specific Gravity > 1.060 (1.010-1.030); Urine Squamous Epithelial Cell Present (Absent); Urine Urobilinogen Negative (Negative); Urine White Blood Cell Absent (Absent)
[2018-06-26 19:58] VITALS: BP 149/88
== END 2018-06-26 19:57 | disposition home or self-care (01) ==
LOC: ED 12:51
DX: R10.9 Unspecified abdominal pain (principal); I48.91 Unspecified atrial fibrillation; I25.10 Atherosclerotic heart disease of native coronary artery without angina pectoris; E78.5 Hyperlipidemia, unspecified; I10 Essential (primary) hypertension; K21.9 Gastro-esophageal reflux disease without esophagitis; E03.9 Hypothyroidism, unspecified; E78.00 Pure hypercholesterolemia, unspecified; J44.9 Chronic obstructive pulmonary disease, unspecified; Z87.891 Personal history of nicotine dependence; I70.90 Unspecified atherosclerosis; K44.9 Diaphragmatic hernia without obstruction or gangrene
CPT/HCPCS: 36415; 74174; 80053; 81003; 81015; 83605; 83690; 85025; 86140; 87040; 93005; 99282; Q9967

== ENCOUNTER 2020-06-02 22:16 | Observation (INO) ==
[2020-06-02] MEDS ORDERED: NS 0.9% 1000 ml BAG 1,000 ML IV ONE (23:50)
[2020-06-02] MEDS ORDERED: Morphine 10 MG/ML VIAL (1 ml) IV ONE (23:50)
[2020-06-03 01:05] LABS: ABS Basophils 0.1 10^3/ul (0-0.2); ABS Eosinophils 0.3 10^3/ul (0-0.6); ABS Lymphocytes 1.7 10^3/ul (1.0-4.8); ABS Monocytes 0.4 10^3/ul (0-0.8); ABS Neutrophils 2.5 10^3/ul (1.5-7.7); Hematocrit 36 % (35-47); Hemoglobin 12.3 g/dL (12.0-16.0); Lymphocyte % 33.6 %; Mean Corpuscular HGB Conc 35 g/dL (31-36); Mean Corpuscular Hemoglobin 30 pg (27-31); Mean Corpuscular Volume 86 fL (80-97); Mean Platelet Volume 8.5 fL (7.4-10.4); Platelet Count 158 10^3/uL (150-450); Red Blood Count 4.15 10^6 /uL (3.70-4.87); Red Cell Distribution Width 13 % (10-15); White Blood Count 4.9 10^3/uL (3.5-10.8)
[2020-06-03 01:10] LABS: INR 1.08 (0.82-1.09)
[2020-06-03 01:18] LABS: BUN/Creatinine Ratio 17.7 (8-20); Calcium 9.6 mg/dL (8.6-10.3); EGFR African American 69.7 (>60); EGFR Non-African American 57.6 (>60); Potassium 3.8 mmol/L (3.5-5.0)
[2020-06-03] MEDS ORDERED: NS 0.9% 1000 ml BAG 1,000 ML IV SCH (01:30)
[2020-06-03 04:34] LABS: Urine Appearance Cloudy; Urine Bilirubin Negative (Negative); Urine Blood 3+ (Negative); Urine Color Yellow; Urine Glucose Negative (Negative); Urine Ketones Negative (Negative); Urine Nitrite Negative (Negative); Urine Protein 1+(30 mg/dL) (Negative); Urine Specific Gravity 1.019 (1.002-1.030); Urine Urobilinogen Negative (Negative)
[2020-06-03 04:43] LABS: Urine Bacteria Absent (Absent); Urine Red Blood Cell 3+(>10/hpf) (Absent); Urine Squamous Epithelial Cell Present (Absent); Urine White Blood Cell 3+(>20/hpf) (Absent)
[2020-06-03] MEDS: Ondansetron 4 mg VIAL 2 MG/ML 2 ml VIAL IV PRN (05:44)
[2020-06-03] MEDS ORDERED: Dexamethasone IV 4 MG/ML VIAL 1 ml VIAL IV SLOW PU ONE (13:04)
[2020-06-03] MEDS ORDERED: Famotidine IV 10 MG/ML 2 ml VIAL (20 mg) IV SLOW PU ONE (13:04)
[2020-06-03] MEDS ORDERED: Prochlorperazine 5 mg/ml 2 ml VIAL (10 mg) IV PRN (13:07)
[2020-06-03] MEDS ORDERED: fentaNYL 100 mcg/2 ml 50 MCG/ML VIAL IV PRN (13:07)
[2020-06-03] MEDS ORDERED: HYDROcodone/ACETAMIN 5/325 mg TAB PO PRN (13:07)
[2020-06-03] MEDS ORDERED: Naloxone 0.4 mg VIAL 0.4 mg/ml 1 ml VIAL IV PRN (13:07)
[2020-06-03] MEDS ORDERED: fentaNYL 100 mcg/2 ml 50 MCG/ML VIAL ONE (14:33)
[2020-06-03] MEDS ORDERED: Prochlorperazine 5 mg/ml 2 ml VIAL (10 mg) ONE (14:41)
[2020-06-03] MEDS: Morphine 2 MG/ML SYRINGE IV PRN (15:58)
[2020-06-03] MEDS: oxyCODONE/Acetamin 5/325 mg TAB PO PRN (17:43)
[2020-06-04] MEDS: oxyCODONE/Acetamin 5/325 mg TAB PO PRN ×3 (02:29→13:02)
[2020-06-04] MEDS: Morphine 2 MG/ML SYRINGE IV PRN ×2 (04:07→09:37)
[2020-06-04] MEDS: Ondansetron 4 mg VIAL 2 MG/ML 2 ml VIAL IV PRN (09:06)
[2020-06-04 16:11] VITALS: BP 154/64
== END 2020-06-04 16:40 | disposition home or self-care (01) ==
LOC: MED 22:16 → ED 22:16 → MED 06-03 05:01
PROVIDERS: ADMIT Internal Medicine; ATTEND Hospitalist

== ENCOUNTER 2020-11-04 05:55 | Inpatient (IN) ==
[2020-11-04 07:16] LABS: ABS Eosinophils 0.2 10^3/ul (0-0.6); ABS Lymphocytes 1.2 10^3/ul (1.0-4.8); ABS Monocytes 0.4 10^3/ul (0-0.8); ABS Neutrophils 2.5 10^3/ul (1.5-7.7); Eosinophil % 3.8 %; Hematocrit 33 % (35-47); Lymphocyte % 27.3 %; Mean Corpuscular HGB Conc 34 g/dL (31-36); Mean Corpuscular Hemoglobin 27 pg (27-31); Mean Corpuscular Volume 79 fL (80-97); Mean Platelet Volume 8.3 fL (7.4-10.4); Platelet Count 169 10^3/uL (150-450); Red Blood Count 4.13 10^6 /uL (3.70-4.87); Red Cell Distribution Width 15 % (10-15); White Blood Count 4.3 10^3/uL (3.5-10.8)
[2020-11-04 07:29] LABS: Calcium 9.1 mg/dL (8.6-10.3); EGFR African American 58.4 (>60); EGFR Non-African American 48.2 (>60); Potassium 3.7 mmol/L (3.5-5.0)
[2020-11-04] MEDS ORDERED: Iodixanol (CONTRAST) 320 MG/ML 100 ML SDV IV ONE (09:27)
[2020-11-04] MEDS ORDERED: Albuterol HFA INHALER 8 gm MDI INH PRN (12:10)
[2020-11-04] MEDS ORDERED: Furosemide 20 mg/2 ml IV VIAL IV SLOW PU ONE (12:12)
[2020-11-04 13:33] LABS: TSH Ultra Thyroid Stim Horm 3.23 mcIU/mL (0.34-5.60)
[2020-11-04] MEDS: Potassium Chlor 20 meq TAB.ER PO SCH (20:36)
[2020-11-04] MEDS: Amiodarone 400 mg TAB PO SCH (20:37)
[2020-11-04] MEDS: CMC:Dabigatran 150 mg CAP (NF) PO SCH (21:03)
[2020-11-05 05:35] LABS: ABS Eosinophils 0.2 10^3/ul (0-0.6); ABS Lymphocytes 1.3 10^3/ul (1.0-4.8); ABS Monocytes 0.4 10^3/ul (0-0.8); ABS Neutrophils 3.2 10^3/ul (1.5-7.7); Hematocrit 34 % (35-47); Hemoglobin 11.4 g/dL (12.0-16.0); Lymphocyte % 25.3 %; Mean Corpuscular HGB Conc 33 g/dL (31-36); Mean Corpuscular Hemoglobin 27 pg (27-31); Mean Corpuscular Volume 80 fL (80-97); Mean Platelet Volume 8.2 fL (7.4-10.4); Platelet Count 176 10^3/uL (150-450); Red Blood Count 4.29 10^6 /uL (3.70-4.87); Red Cell Distribution Width 15 % (10-15); White Blood Count 5.2 10^3/uL (3.5-10.8)
[2020-11-05 05:54] LABS: Calcium 9.2 mg/dL (8.6-10.3); EGFR African American 63.6 (>60); EGFR Non-African American 52.5 (>60); Potassium 3.9 mmol/L (3.5-5.0)
[2020-11-05] MEDS ORDERED: Perflutren Lipid Microsphere 3 ML VIAL ONE ×2 (07:58→14:58)
[2020-11-05] MEDS: Potassium Chlor 20 meq TAB.ER PO SCH ×2 (09:50→20:00)
[2020-11-05] MEDS: Aspirin EC 81 mg TAB.EC (enteric coated) PO SCH (09:50)
[2020-11-05] MEDS: CMC:Dabigatran 150 mg CAP (NF) PO SCH ×2 (09:50→20:02)
[2020-11-05] MEDS: Amiodarone 400 mg TAB PO SCH ×2 (09:50→20:01)
[2020-11-05] MEDS ORDERED: Furosemide 20 mg/2 ml IV VIAL IV SLOW PU ONE (13:43)
[2020-11-06 07:53] LABS: ABS Basophils 0.1 10^3/ul (0-0.2); ABS Eosinophils 0.2 10^3/ul (0-0.6); ABS Lymphocytes 1.2 10^3/ul (1.0-4.8); ABS Monocytes 0.5 10^3/ul (0-0.8); ABS Neutrophils 2.7 10^3/ul (1.5-7.7); Eosinophil % 4.8 %; Hematocrit 35 % (35-47); Hemoglobin 11.8 g/dL (12.0-16.0); Lymphocyte % 26.3 %; Mean Corpuscular HGB Conc 33 g/dL (31-36); Mean Corpuscular Hemoglobin 26 pg (27-31); Mean Corpuscular Volume 79 fL (80-97); Mean Platelet Volume 8.3 fL (7.4-10.4); Platelet Count 174 10^3/uL (150-450); Red Blood Count 4.47 10^6 /uL (3.70-4.87); Red Cell Distribution Width 15 % (10-15); White Blood Count 4.7 10^3/uL (3.5-10.8)
[2020-11-06] MEDS: Aspirin EC 81 mg TAB.EC (enteric coated) PO SCH (08:01)
[2020-11-06] MEDS: CMC:Dabigatran 150 mg CAP (NF) PO SCH ×2 (08:02→21:08)
[2020-11-06] MEDS: Potassium Chlor 20 meq TAB.ER PO SCH ×2 (08:02→21:08)
[2020-11-06] MEDS: Amiodarone 400 mg TAB PO SCH (08:03)
[2020-11-06 08:11] LABS: Anion Gap 6 mmol/L (2-11); Blood Urea Nitrogen 15 mg/dL (6-24); CO2 Carbon Dioxide 28 mmol/L (22-32); Calcium 9.3 mg/dL (8.6-10.3); Chloride 104 mmol/L (101-111); EGFR African American 60.2 (>60); EGFR Non-African American 49.8 (>60); Glucose 123 mg/dL (70-100); Potassium 4.2 mmol/L (3.5-5.0); Sodium 138 mmol/L (135-145)
[2020-11-06] MEDS ORDERED: Senna TAB 8.6 mg TAB PO PRN (08:15)
[2020-11-06] MEDS: Polyethylene Glycol 3350 17 GM PACKET PO SCH (09:22)
[2020-11-06] MEDS: Magnesium Hydroxide LIQ 30 ML UDC PO SCH ×2 (09:22→21:08)
[2020-11-06 09:35] LABS: % Iron Saturation 7 % (15-55); Iron 33 ug/dL (50-212); Total Iron Binding Capacity 463 mcg/dL (250-450); Transferrin 331 mg/dL (203-362); Unsaturated Iron Binding < 448 ug/dL
[2020-11-06 11:24] LABS: PCO2 Arterial 42 mmHg (35-45)
[2020-11-06 12:03] LABS: PO2 Arterial 47 mmHg (80-100)
[2020-11-06] MEDS: Furosemide 40 mg/4 ml IV VIAL IV SLOW PU SCH (17:10)
[2020-11-07 06:19] LABS: ABS Eosinophils 0.2 10^3/ul (0-0.6); ABS Lymphocytes 1.2 10^3/ul (1.0-4.8); ABS Monocytes 0.5 10^3/ul (0-0.8); ABS Neutrophils 2.5 10^3/ul (1.5-7.7); Eosinophil % 4.7 %; Hematocrit 36 % (35-47); Hemoglobin 12.1 g/dL (12.0-16.0); Lymphocyte % 27.7 %; Mean Corpuscular HGB Conc 33 g/dL (31-36); Mean Corpuscular Hemoglobin 26 pg (27-31); Mean Corpuscular Volume 78 fL (80-97); Mean Platelet Volume 8.4 fL (7.4-10.4); Nucleated Red Blood Cells % 0.1; Platelet Count 165 10^3/uL (150-450); Red Blood Count 4.62 10^6 /uL (3.70-4.87); Red Cell Distribution Width 15 % (10-15); White Blood Count 4.4 10^3/uL (3.5-10.8)
[2020-11-07 06:33] LABS: Calcium 9.4 mg/dL (8.6-10.3); EGFR African American 62.9 (>60); Potassium 4.1 mmol/L (3.5-5.0)
[2020-11-07] MEDS: Furosemide 40 mg/4 ml IV VIAL IV SLOW PU SCH (09:05)
[2020-11-07] MEDS: Polyethylene Glycol 3350 17 GM PACKET PO SCH (09:05)
[2020-11-07] MEDS: Magnesium Hydroxide LIQ 30 ML UDC PO SCH ×2 (09:05→20:46)
[2020-11-07] MEDS: Aspirin EC 81 mg TAB.EC (enteric coated) PO SCH (09:06)
[2020-11-07] MEDS: CMC:Dabigatran 150 mg CAP (NF) PO SCH ×2 (09:06→20:52)
[2020-11-07] MEDS: Potassium Chlor 20 meq TAB.ER PO SCH ×2 (09:12→20:47)
[2020-11-07] MEDS: Iron Sucrose 200 MG in NS 0.9% 100 ml BAG 100 ML IVPB SCH (09:28)
[2020-11-08 05:03] LABS: Calcium 9.5 mg/dL (8.6-10.3); EGFR African American 52.9 (>60); EGFR Non-African American 43.7 (>60); Magnesium 2.4 mg/dL (1.9-2.7); Potassium 3.8 mmol/L (3.5-5.0)
[2020-11-08 08:55] VITALS: BP 108/62
[2020-11-08] MEDS: CMC:Dabigatran 150 mg CAP (NF) PO SCH (09:18)
[2020-11-08] MEDS: Potassium Chlor 20 meq TAB.ER PO SCH (09:18)
[2020-11-08] MEDS: Aspirin EC 81 mg TAB.EC (enteric coated) PO SCH (09:19)
[2020-11-08] MEDS: Iron Sucrose 200 MG in NS 0.9% 100 ml BAG 100 ML IVPB SCH (09:23)
[2020-11-08] MEDS: Furosemide 40 mg/4 ml IV VIAL IV SLOW PU SCH (09:23)
[2020-11-08] MEDS: Magnesium Hydroxide LIQ 30 ML UDC PO SCH (09:28)
[2020-11-08] MEDS: Polyethylene Glycol 3350 17 GM PACKET PO SCH (09:28)
== END 2020-11-08 10:45 | disposition home or self-care (01) | DRG 291 ==
LOC: MED 05:55 → ED 05:55 → SUATTDRO 12:08 → MEDTELE 11-06 09:38
PROVIDERS: ADMIT Hospitalist; ATTEND Internal Medicine

== ENCOUNTER 2021-02-02 05:51 | Observation (INO) ==
[2021-02-02] MEDS ORDERED: Morphine 4 MG/ML VIAL (1 ml) IV ONE (06:08)
[2021-02-02] MEDS ORDERED: Ondansetron 4 mg VIAL 2 MG/ML 2 ml VIAL IV ONE ×2 (06:08→09:13)
[2021-02-02 06:37] LABS: ABS Basophils 0.1 10^3/ul (0-0.2); ABS Eosinophils 0.2 10^3/ul (0-0.6); ABS Monocytes 0.4 10^3/ul (0-0.8); ABS Neutrophils 4.7 10^3/ul (1.5-7.7); Eosinophil % 2.8 %; Hematocrit 40 % (35-47); Hemoglobin 13.5 g/dL (12.0-16.0); Lymphocyte % 16.2 %; Mean Corpuscular HGB Conc 34 g/dL (31-36); Mean Corpuscular Hemoglobin 29 pg (27-31); Mean Corpuscular Volume 84 fL (80-97); Mean Platelet Volume 8.2 fL (7.4-10.4); Platelet Count 150 10^3/uL (150-450); Red Blood Count 4.74 10^6 /uL (3.70-4.87); Red Cell Distribution Width 19 % (10-15); White Blood Count 6.4 10^3/uL (3.5-10.8)
[2021-02-02] MEDS ORDERED: Lactated Ringers 1000 ml BAG 1,000 ML IV SCH (07:00)
[2021-02-02 07:01] LABS: Albumin 4.1 g/dL (3.2-5.2); Albumin/Globulin Ratio 1.4 (1-3); C Reactive Protein 1.43 mg/L (<8.01); Calcium 9.7 mg/dL (8.6-10.3); Globulin 2.9 g/dL (2-4); Potassium 3.3 mmol/L (3.5-5.0); Total Bilirubin 0.7 mg/dL (0.2-1.0); eGFR CKD-EPI 55.6 (>60)
[2021-02-02] MEDS ORDERED: Potassium Chlor 20 meq TAB.ER PO ONE (07:11)
[2021-02-02 08:01] LABS: Magnesium 2.1 mg/dL (1.9-2.7)
[2021-02-02 10:22] LABS: Rapid COVID-19 Molecular Undetected (Undetected)
[2021-02-02] MEDS ORDERED: Ondansetron 4 mg VIAL 2 MG/ML 2 ml VIAL IV PRN (10:52)
[2021-02-02] MEDS: NS 0.9% 1000 ml BAG 1,000 ML IV SCH ×2 (11:07→22:41)
[2021-02-02] MEDS: Morphine 2 MG/ML SYRINGE IV PRN ×2 (11:07→17:33)
[2021-02-02] MEDS ORDERED: Albuterol HFA INHALER 8 gm MDI INH PRN (12:03)
[2021-02-02 14:18] LABS: Urine Appearance Cloudy; Urine Bilirubin Negative (Negative); Urine Blood 3+ (Negative); Urine Color Yellow; Urine Glucose Negative (Negative); Urine Ketones Negative (Negative); Urine Nitrite Negative (Negative); Urine Protein 1+(30 mg/dL) (Negative); Urine Specific Gravity 1.059 (1.002-1.030); Urine Urobilinogen Negative (Negative)
[2021-02-02 14:26] LABS: Urine Bacteria Absent (Absent); Urine Red Blood Cell 3+(>10/hpf) (Absent); Urine Squamous Epithelial Cell Present (Absent); Urine White Blood Cell 2+(11-20/hpf) (Absent)
[2021-02-03] MEDS: Morphine 2 MG/ML SYRINGE IV PRN ×2 (01:18→11:51)
[2021-02-03 05:58] LABS: ABS Eosinophils 0.2 10^3/ul (0-0.6); ABS Lymphocytes 1.2 10^3/ul (1.0-4.8); ABS Monocytes 0.4 10^3/ul (0-0.8); ABS Neutrophils 2.4 10^3/ul (1.5-7.7); Eosinophil % 4.5 %; Hematocrit 37 % (35-47); Hemoglobin 12.3 g/dL (12.0-16.0); Mean Corpuscular HGB Conc 34 g/dL (31-36); Mean Corpuscular Hemoglobin 28 pg (27-31); Mean Corpuscular Volume 84 fL (80-97); Mean Platelet Volume 8.6 fL (7.4-10.4); Nucleated Red Blood Cells % 0.1; Platelet Count 134 10^3/uL (150-450); Red Blood Count 4.33 10^6 /uL (3.70-4.87); Red Cell Distribution Width 19 % (10-15); White Blood Count 4.3 10^3/uL (3.5-10.8)
[2021-02-03 06:21] LABS: Calcium 8.7 mg/dL (8.6-10.3); Potassium 3.8 mmol/L (3.5-5.0)
[2021-02-03 06:27] LABS: eGFR CKD-EPI 69.2 (>60)
[2021-02-03] MEDS: Aspirin EC 81 mg TAB.EC (enteric coated) PO SCH ×2 (08:33→11:56)
[2021-02-03] MEDS: D5LR 20 MEQ KCL 1000 ml BAG 1,000 ML IV SCH (15:48)
[2021-02-03] MEDS: Enoxaparin 80 MG/0.8 ML SYR SUBCUT SCH (18:07)
[2021-02-04] MEDS: D5LR 20 MEQ KCL 1000 ml BAG 1,000 ML IV SCH (01:36)
[2021-02-04 05:51] LABS: ABS Eosinophils 0.2 10^3/ul (0-0.6); ABS Lymphocytes 0.9 10^3/ul (1.0-4.8); ABS Monocytes 0.3 10^3/ul (0-0.8); ABS Neutrophils 1.7 10^3/ul (1.5-7.7); Eosinophil % 5.3 %; Hematocrit 35 % (35-47); Lymphocyte % 27.9 %; Mean Corpuscular HGB Conc 35 g/dL (31-36); Mean Corpuscular Hemoglobin 29 pg (27-31); Mean Corpuscular Volume 83 fL (80-97); Mean Platelet Volume 8.7 fL (7.4-10.4); Platelet Count 126 10^3/uL (150-450); Red Blood Count 4.18 10^6 /uL (3.70-4.87); Red Cell Distribution Width 18 % (10-15); White Blood Count 3.1 10^3/uL (3.5-10.8)
[2021-02-04 06:05] LABS: Calcium 8.8 mg/dL (8.6-10.3); Potassium 3.5 mmol/L (3.5-5.0); eGFR CKD-EPI 75.2 (>60)
[2021-02-04] MEDS: Enoxaparin 80 MG/0.8 ML SYR SUBCUT SCH ×2 (10:05→20:44)
[2021-02-04] MEDS: Aspirin EC 81 mg TAB.EC (enteric coated) PO SCH (10:06)
[2021-02-05 06:09] LABS: ABS Eosinophils 0.2 10^3/ul (0-0.6); ABS Lymphocytes 1.2 10^3/ul (1.0-4.8); ABS Monocytes 0.4 10^3/ul (0-0.8); Eosinophil % 5.6 %; Hematocrit 36 % (35-47); Hemoglobin 12.4 g/dL (12.0-16.0); Lymphocyte % 31.5 %; Mean Corpuscular HGB Conc 34 g/dL (31-36); Mean Corpuscular Hemoglobin 28 pg (27-31); Mean Corpuscular Volume 83 fL (80-97); Mean Platelet Volume 8.3 fL (7.4-10.4); Platelet Count 130 10^3/uL (150-450); Red Blood Count 4.37 10^6 /uL (3.70-4.87); Red Cell Distribution Width 18 % (10-15); White Blood Count 3.9 10^3/uL (3.5-10.8)
[2021-02-05 06:23] LABS: Calcium 9.1 mg/dL (8.6-10.3); Potassium 3.3 mmol/L (3.5-5.0); eGFR CKD-EPI 58.9 (>60)
[2021-02-05] MEDS ORDERED: Potassium Chlor 20 meq TAB.ER PO ONE (08:04)
[2021-02-05] MEDS: Aspirin EC 81 mg TAB.EC (enteric coated) PO SCH (08:29)
[2021-02-05] MEDS: Enoxaparin 80 MG/0.8 ML SYR SUBCUT SCH (08:30)
[2021-02-05 11:43] VITALS: BP 128/54
== END 2021-02-05 12:15 | disposition home or self-care (01) ==
LOC: EDHOLD 05:51 → ED 05:51 → SUATTDRO 11:11 → EDHOLD 12:21 → SSU 12:45
PROVIDERS: ADMIT Internal Medicine; ATTEND Internal Medicine

== ENCOUNTER 2023-01-12 11:22 | Observation (INO) ==
[2023-01-12] MEDS ORDERED: Magnesium Sulfate 2 gm BAG 2 GM/50 ML BAG IVPB ONE (11:46)
[2023-01-12] MEDS ORDERED: Ondansetron 4 mg VIAL 2 MG/ML 2 ml VIAL IV PRN (12:07)
[2023-01-12 12:29] LABS: ABS Eosinophils 0.1 10^3/uL (0.0-0.5); ABS Lymphocytes 1.2 10^3/uL (1.0-4.8); ABS Monocytes 0.5 10^3/uL (0.0-0.9); ABS Neutrophils 3.8 10^3/uL (1.5-7.6); ABS Nucleated RBC 0.01 10^3/ul; Eosinophil % 1.7 %; Hematocrit 39.7 % (35-45); Hemoglobin 13.2 g/dL (11.5-14.3); Lymphocyte % 20.7 %; Mean Corpuscular Hemoglobin 27.2 pg (27-33); Mean Corpuscular Hgb Conc 33.3 g/dL (31-36); Mean Corpuscular Volume 81.8 fL (80-97); Mean Platelet Volume 8.1 fL (7.5-11.2); Nucleated Red Blood Cells % 0.1 %/100WBC (0.0-0.8); Platelet Count 188 10^3/uL (150-450); Red Blood Count 4.85 10^6/uL (3.63-4.92); Red Cell Distribution Width 18.2 % (12-17); White Blood Count 5.6 10^3/uL (3.8-11.8)
[2023-01-12] MEDS ORDERED: Digoxin IV 0.5 MG/2 ML AMP (0.25 MG/ML) IV SLOW PU ONE ×2 (12:47→12:53)
[2023-01-12] MEDS: Potassium Chlor 20 meq TAB.ER PO SCH (21:19)
[2023-01-13] MEDS ORDERED: NS 0.9% 1000 ml BAG 1,000 ML IV ONE (07:00)
[2023-01-13] MEDS: Potassium Chlor 20 meq TAB.ER PO SCH (08:35)
[2023-01-13 10:03] LABS: Calcium 9.7 mg/dL (8.6-10.3); Creatinine, Serum 0.94 mg/dL (0.51-0.95); Magnesium 2.2 mg/dL (1.9-2.7); Potassium 3.8 mmol/L (3.5-5.0); eGFR CKD-EPI 64.9 (>60)
[2023-01-13] MEDS ORDERED: Midazolam 5 mg/5 ml VIAL 1 mg/ml 5 ml VIAL (5 mg) ONE (10:06)
[2023-01-13] MEDS ORDERED: Naloxone 0.4 mg VIAL 0.4 mg/ml 1 ml VIAL ONE (10:06)
[2023-01-13] MEDS ORDERED: fentaNYL 100 mcg/2 ml 50 MCG/ML VIAL ONE (10:06)
[2023-01-13] MEDS ORDERED: Flumazenil 0.5 mg/5 ml 0.1 MG/ML 5 ml VIAL ONE (10:06)
[2023-01-13] MEDS ORDERED: Iron Sucrose 200 MG in NS 0.9% 100 ml BAG 100 ML IVPB ONE (10:30)
[2023-01-13] MEDS ORDERED: Midazolam 10 mg/10 ml VIAL 1 mg/ml 10 ml VIAL (10 mg) IV SLOW PU ONE (11:15)
[2023-01-13] MEDS ORDERED: Naloxone 0.4 mg VIAL 0.4 mg/ml 1 ml VIAL IV PUSH PRN (11:15)
[2023-01-13] MEDS ORDERED: fentaNYL 100 mcg/2 ml 50 MCG/ML VIAL IV SLOW PU ONE (11:15)
[2023-01-13] MEDS ORDERED: Flumazenil 0.5 mg/5 ml 0.1 MG/ML 5 ml VIAL IV PRN (11:15)
[2023-01-13 15:56] VITALS: BP 104/53
== END 2023-01-13 16:20 | disposition home or self-care (01) ==
LOC: EDHOLD 11:22 → ED 11:22 → MEDTELE 13:10
PROVIDERS: ADMIT Student in an Organized Health Care Education/Training Program; ATTEND Student in an Organized Health Care Education/Training Program

== ENCOUNTER 2023-10-09 11:42 | Observation (INO) ==
[2023-10-09 12:39] LABS: ABS Basophils 0.1 10^3/uL (0.0-0.1); ABS Lymphocytes 0.8 10^3/uL (1.0-4.8); ABS Neutrophils 8.4 10^3/uL (1.5-7.6); Eosinophil % 0.1 %; Hematocrit 35.6 % (35-45); Hemoglobin 11.5 g/dL (11.5-14.3); Lymphocyte % 7.6 %; Mean Corpuscular Hemoglobin 27.3 pg (27-33); Mean Corpuscular Hgb Conc 32.4 g/dL (31-36); Mean Corpuscular Volume 84.3 fL (80-97); Mean Platelet Volume 8.4 fL (7.5-11.2); Platelet Count 369 10^3/uL (150-450); Red Blood Count 4.22 10^6/uL (3.63-4.92); Red Cell Distribution Width 15.5 % (12-17); White Blood Count 10.2 10^3/uL (3.8-11.8)
[2023-10-09] MEDS: Digoxin IV 0.5 MG/2 ML AMP (0.25 MG/ML) IV SLOW PU ONE ×2 (12:59→23:29)
[2023-10-09 13:03] LABS: High Sens Troponin Baseline 6 pg/mL (<15)
[2023-10-09 13:04] LABS: INR 1.47 (0.83-1.13)
[2023-10-09 13:23] LABS: ALT 25 U/L (7-52); Albumin 3.5 g/dL (3.2-5.2); Albumin/Globulin Ratio 1.1 (1-3); Alkaline Phosphatase 124 U/L (35-149); Anion Gap 11 mmol/L (2-16); Blood Urea Nitrogen 13 mg/dL (6-24); CO2 Carbon Dioxide 23 mmol/L (22-32); Calcium 9.2 mg/dL (8.6-10.3); Chloride 101 mmol/L (101-111); Creatinine, Serum 1.26 mg/dL (0.51-0.95); Globulin 3.3 g/dL (2-4); Glucose 104 mg/dL (70-100); Sodium 135 mmol/L (135-145); Total Bilirubin 0.9 mg/dL (0.2-1.0); Total Protein 6.8 g/dL (6.4-8.9); eGFR CKD-EPI 45.4 (>60)
[2023-10-09] MEDS: Metoprolol Tartrate 5 mg VIAL 5 ml VIAL (1 mg/ml) IV ONE ×3 (13:47→21:09)
[2023-10-09 14:11] LABS: High Sensitivity Troponin 1 Hr 6 pg/mL (<15)
[2023-10-09] MEDS: Iodixanol (CONTRAST) 320 MG/ML 100 ML SDV IV ONE (16:30)
[2023-10-09 17:08] LABS: C Reactive Protein 58.72 mg/L (<8.01)
[2023-10-09] MEDS: Ondansetron 4 mg VIAL 2 MG/ML 2 ml VIAL IV ONE (17:31)
[2023-10-09 18:19] LABS: Erythrocyte Sed Rate 59 mm/Hr (0-29)
[2023-10-09] MEDS: Furosemide 40 mg/4 ml IV VIAL IV ONE (21:09)
[2023-10-10 06:22] LABS: ABS Basophils 0.1 10^3/uL (0.0-0.1); ABS Eosinophils 0.1 10^3/uL (0.0-0.5); ABS Monocytes 1.1 10^3/uL (0.0-0.9); ABS Neutrophils 5.1 10^3/uL (1.5-7.6); ABS Nucleated RBC 0.01 10^3/ul; Eosinophil % 1.7 %; Hematocrit 36.1 % (35-45); Hemoglobin 11.9 g/dL (11.5-14.3); Lymphocyte % 13.7 %; Mean Corpuscular Hemoglobin 27.5 pg (27-33); Mean Corpuscular Hgb Conc 32.8 g/dL (31-36); Mean Corpuscular Volume 83.6 fL (80-97); Mean Platelet Volume 8.1 fL (7.5-11.2); Nucleated Red Blood Cells % 0.1 %/100WBC (0.0-0.8); Platelet Count 340 10^3/uL (150-450); Red Blood Count 4.31 10^6/uL (3.63-4.92); Red Cell Distribution Width 15.4 % (12-17); White Blood Count 7.4 10^3/uL (3.8-11.8)
[2023-10-10 06:53] LABS: Calcium 8.9 mg/dL (8.6-10.3); Creatinine, Serum 1.46 mg/dL (0.51-0.95); Magnesium 1.9 mg/dL (1.9-2.7); Phosphorus 3.9 mg/dL (2.5-5.0); Potassium 3.9 mmol/L (3.5-5.0)
[2023-10-10 07:07] LABS: TSH Ultra Thyroid Stim Horm 3.79 mcIU/mL (0.34-5.60)
[2023-10-10 07:13] LABS: Ferritin 152.5 ng/mL (11-307)
[2023-10-10] MEDS: Sulfur Hexaflouride MICROSPHR 25 MG VIAL IV ONE (09:26)
[2023-10-10] MEDS: Magnesium Sulfate 2 gm BAG 2 GM/50 ML BAG IVPB ONE (09:32)
[2023-10-10 09:50] VITALS: BP 118/62
[2023-10-10] MEDS: Potassium Chlor 20 meq TAB.ER PO ONE (10:06)
== END 2023-10-10 10:50 | disposition short-term general hospital (02) ==
LOC: ED 11:42 → EDHOLD 11:42 → MEDTELE 22:22
PROVIDERS: ADMIT Student in an Organized Health Care Education/Training Program; ATTEND Student in an Organized Health Care Education/Training Program